=== PATIENT | female | born 1995 | race Caucasian/White ===

== ENCOUNTER 2022-06-01 08:15 | Outpatient (CLI) | payer BC, MEDICAID, SELFPAY ==
--- NOTE | 2022-06-01 08:15 | CRLHL7_ITS ---
For Patients: As a result of the Cures Act, medical imaging exams and procedure reports are released immediately into your electronic medical record. You may view this report before your referring provider. If you have questions, please contact your health care provider. INDICATION: First trimester scan, establish dates. COMPARISON: None. TECHNIQUE: Real-time morales-scale imaging of the pelvis was performed. FINDINGS: Sonographic imaging demonstrates a single living intrauterine gestation. The embryo demonstrates a regular cardiac rate measuring 173 beats per minute. The embryo`s crown-rump length measurement of 3.9 cm corresponds to a gestational age of 10 weeks 6 days with a sonographic due date of 12/22/2022. There is a normal-appearing yolk sac. There are no gross abnormalities noted within the embryo at this early state of development. The gestational sac has a normal appearance. There is no evidence of a perigestational hemorrhage. The amount of fluid within the sac appears appropriate for gestational age. The cervix is closed. The myometrium appears normal. The ovaries are of normal size. There are no suspicious fluid collections noted in the cul-de-sac. IMPRESSION: Normal first trimester OB ultrasound exam. Gestational age calculated at 10 weeks 6 days with a sonographic due date of 12/22/2022. Dictated by Lloyd Justice MD @ 06/01/2022 9:29:23 AM (Electronically Signed)
== END 2022-06-01 08:16 | disposition home or self-care (01) ==
LOC: US 08:20
PROVIDERS: PCP Student in an Organized Health Care Education/Training Program; Visit Provider Advanced Practice Midwife
DX: Z36.89 Encounter for other specified antenatal screening (principal); Z3A.10 10 weeks gestation of pregnancy; O99.341 Other mental disorders complicating pregnancy, first trimester; F31.9 Bipolar disorder, unspecified; Z91.410 Personal history of adult physical and sexual abuse
CPT/HCPCS: 76817; 86592; 86703; 86762; 86787; 86803; 86850; 86900; 86901; 87340; 88174

== ENCOUNTER 2022-06-29 14:48 | Outpatient (CLI) | payer BC, SELFPAY ==
[2022-06-29 15:00] VITALS: BP 126/89; RESP 20; TEMP 36.4; O2SAT 99; BMI 24.9
[2022-06-29] MEDS: 0.9 % SODIUM CHLORIDE 1000 ml 1,000 ML IV (15:23)
[2022-06-29] MEDS: ONDANSETRON 2 MG/ML inj 4 MG IVP (15:24)
[2022-06-29] MEDS: KETOROLAC 30 MG/ML inj IVP (15:25)
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
[2022-06-29 15:30] VITALS: BP 128/86; PULSE 68; O2SAT 99
[2022-06-29 15:36] LABS: Chloride* 104 mmol/L (96-114); Sodium* 136 mmol/L (135-149)
[2022-06-29 15:37] LABS: Potassium* 3.7 mmol/L (3.6-5.1)
[2022-06-29 15:39] LABS: Creatinine* 0.7 mg/dL (0.5-1.5); Est. Creatinine Clearance* 106.09; Estimated Glomerular Filt Rate 123 ml/min
[2022-06-29 15:40] LABS: Blood Urea Nitrogen* 14 mg/dL (5-24); Calcium* 9.1 mg/dL (8.4-10.6); Carbon Dioxide* 24 mmol/L (20-32); Glucose* 92 mg/dL (60-115)
[2022-06-29 15:43] LABS: INR 0.99 (0.91-1.10); Prothrombin Time 13.5 Seconds
[2022-06-29 15:44] LABS: Partial Thromboplastin Time* 33 Seconds (23-33)
[2022-06-29 15:47] LABS: Basophils Percent Auto 0.3 % (0.0-3.0); Eosinophils Percent Auto 2.4 % (0.0-7.0); Hemoglobin* 13.2 gm/dL (12.0-16.0); Immature Granulocytes Abs Auto 0.02 K/uL (0.00-0.30); Lymphocytes Percent Auto 21.9 % (20-44); Mean Corpuscular HGB Conc 35 gm/dL (32-36); Mean Corpuscular Hemoglobin 31 pg (26-34); Mean Corpuscular Volume 90 fL (80-100); Monocytes Percent Auto 6.6 % (0.0-11.0); Neutrophils Percent Auto 68.6 % (42.0-72.0); Platelet Count* 257 K/uL (140-440); RDW Coefficient of Variation % 11.6 % (11.5-15.5); Red Blood Count 4.24 m/uL (4.00-5.20); White Blood Count* 12.75 K/uL (4.50-11.00)
[2022-06-29 15:49] LABS: Slide Review Reflex No
[2022-06-29 16:30] VITALS: BP 130/90; PULSE 72; RESP 18
[2022-06-29 17:00] VITALS: BP 121/78; PULSE 68; RESP 18
[2022-06-29] MEDS: miSOPROStoL 800 MCG/4 TABLET PR (17:00)
--- NOTE | 2022-06-29 17:06 | CRLHL7_ITS ---
For Patients: As a result of the Century Cures Act, medical imaging exams and procedure reports are released immediately into your electronic medical record. You may view this report before your referring provider. If you have questions, please contact your health care provider. INDICATION: Miscarriage. Question retained products of conception. TECHNIQUE: Ultrasound pelvis transabdominal only for assessment and to visualize the endometrium. Real-time sonographic images with color doppler imaging of the endometrium and ovaries were obtained. COMPARISON: Ob ultrasound study dated 06/01/2022 FINDINGS: Uterus: Size measurements not obtained. Endometrium: Heterogeneous, thickened appearance to the endometrium with increased vascularity on color Doppler evaluation. Right ovary: Limited evaluation. Left ovary: Not evaluated. Cul-de-sac: No significant free fluid. IMPRESSION: 1. Thickened, vascular appearance to the endometrium, consistent with retained products of conception. Preliminary results were given to the ordering ER provider by gear repair supervisor earlier on 06/29/2022 per tech notes. Dictated by Kai Evans MD @ 06/29/2022 6:53:12 PM Dictated by: Kai Evans MD @ 06/29/2022 18:53:20 (Electronically Signed)
--- NOTE | 2022-06-29 17:45 | ED.NURSE ---
Pt to and back from
--- NOTE | 2022-06-29 17:56 | ED.NURSE ---
Pt to OB for observation.
[2022-06-29 18:15] VITALS: BP 128/72; PULSE 82; RESP 18; TEMP 36.4; O2SAT 99
[2022-06-29 18:50] LABS: Basophils Percent Auto 0.2 % (0.0-3.0); Eosinophils Percent Auto 1.8 % (0.0-7.0); Hematocrit 34.4 % (33.0-51.0); Hemoglobin* 11.7 gm/dL (12.0-16.0); Immature Granulocytes Abs Auto 0.02 K/uL (0.00-0.30); Lymphocytes Percent Auto 15.7 % (20-44); Mean Corpuscular HGB Conc 34 gm/dL (32-36); Mean Corpuscular Hemoglobin 31 pg (26-34); Mean Corpuscular Volume 91 fL (80-100); Monocytes Percent Auto 5.9 % (0.0-11.0); Neutrophils Percent Auto 76.3 % (42.0-72.0); Platelet Count* 206 K/uL (140-440); RDW Coefficient of Variation % 11.6 % (11.5-15.5); Red Blood Count 3.78 m/uL (4.00-5.20); White Blood Count* 14.79 K/uL (4.50-11.00)
[2022-06-29 18:56] LABS: Slide Review Reflex No
[2022-06-29] MEDS: METHYLERGONOVINE MALEATE 0.2 MG/ML INJ IM (18:57)
[2022-06-29 19:22] LABS: INR 1.04 (0.91-1.10)
[2022-06-29 19:23] LABS: Partial Thromboplastin Time* 32 Seconds (23-33)
[2022-06-29 19:24] LABS: Fibrinogen* 281 mg/dL (200-450)
[2022-06-29 19:36] LABS: Glucose* 77 mg/dL (60-115)
[2022-06-29 19:55] LABS: Free T4 Free Thyroxine* 0.89 ng/dL (0.70-1.85)
[2022-06-29 20:29] LABS: Amphetamine Screen Urine Negative (Negative); Barbiturate Screen Urine Negative (Negative); Benzodiazepines Screen Urine Negative (Negative); Cannabinoid Screen Urine Negative (Negative); Cocaine Screen Urine Negative (Negative); Methadone Screen Urine Negative (Negative); Methamphetamines Screen Urine Negative (Negative); Opiate Screen Urine Negative (Negative); Oxycodone Screen Urine Negative (Negative); Phencyclidine Screen Urine Negative (Negative); Tricyclic Antidepressant Urine Negative (Negative)
== END 2022-06-29 20:00 | disposition home or self-care (01) ==
LOC: ED 17:48 → OB 18:46 → OB OUT 18:59 → OB 19:03
PROVIDERS: Family Medicine; Emergency Provider Internal Medicine; PCP Student in an Organized Health Care Education/Training Program; Visit Provider Obstetrics & Gynecology
DX: O03.9 Complete or unspecified spontaneous abortion without complication (principal)
CPT/HCPCS: 36415; 76857; 80048; 80306; 81241; 82947; 84439; 84443; 85025; 85384; 85460; 85610; 85613; 85730; 86146; 86147; 86317; 86592; 86644; 86645; 86747; 86778; 86850; 86900; 86901; 99213; 99284; A9270; J1885; J2210; J2405; J7030

== ENCOUNTER 2022-11-09 11:57 | Outpatient (CLI) | payer BC, SELFPAY ==
[2022-11-09 16:38] LABS: Chlamydia DNA Amplified* NOT DETECTED (No Detected); GC DNA Amplified* NOT DETECTED (No Detected)
== END 2022-11-09 11:58 | disposition home or self-care (01) ==
LOC: NFLDREF 11:58
PROVIDERS: PCP Student in an Organized Health Care Education/Training Program; Visit Provider Physician Assistant
DX: N89.8 Other specified noninflammatory disorders of vagina (principal)
CPT/HCPCS: 87491; 87591

== ENCOUNTER 2023-06-28 09:02 | Outpatient (CLI) | payer BC, SELFPAY | END 2023-06-28 09:03 | disposition home or self-care (01) | LOC: NFLDREF 06-29 14:57 | PROVIDERS: PCP Nurse Practitioner Family; Visit Provider Nurse Practitioner Family | DX: E03.9 Hypothyroidism, unspecified (principal) | CPT/HCPCS: 84439; 84443 ==

== ENCOUNTER 2023-07-26 10:55 | Outpatient (CLI) | payer BC, SELFPAY | END 2023-07-26 10:56 | disposition home or self-care (01) | LOC: NFLDREF 13:29 | PROVIDERS: PCP Nurse Practitioner Family; Referring Provider Nurse Practitioner Family; Visit Provider Nurse Practitioner Family | DX: E03.9 Hypothyroidism, unspecified (principal) | CPT/HCPCS: 84443 ==

== ENCOUNTER 2023-09-08 11:03 | Outpatient (CLI) | payer BC, SELFPAY | END 2023-09-08 11:04 | disposition home or self-care (01) | PROVIDERS: PCP Nurse Practitioner Family; Visit Provider Family Medicine | DX: Z00.00 Encounter for general adult medical examination without abnormal findings (principal); E03.9 Hypothyroidism, unspecified; R63.5 Abnormal weight gain; R53.83 Other fatigue; Z79.899 Other long term (current) drug therapy; Z13.6 Encounter for screening for cardiovascular disorders | CPT/HCPCS: 80053; 80061; 84439; 84443 ==

== ENCOUNTER 2023-12-09 09:17 | Outpatient (CLI) | payer BC, SELFPAY | END 2023-12-09 09:18 | disposition home or self-care (01) | LOC: NFLDREF 09:18 | PROVIDERS: PCP Family Medicine; Visit Provider Family Medicine | DX: E03.9 Hypothyroidism, unspecified (principal) | CPT/HCPCS: 84439; 84443 ==

== ENCOUNTER 2024-01-01 18:42 | Emergency (ER) | payer BC, SELFPAY ==
[2024-01-01] VITALS (24 sets, daily range): BP systolic 101–137; BP diastolic 63–115; PULSE 83–110; RESP 18; TEMP 37.3; O2SAT 95–98; BMI 27.8
--- NOTE | 2024-01-01 19:05 | ED.NURSE ---
At 1900 hours RN contacted Poison Control for overdose patient C.M. Advised patient took 13 1 mg Ativan tablets today @ 1810 pm. Per Poison Control, patient should be fine. Will be drowsy. Advised to check a Tylenol level. Per Poison Control, pt should be good to go.
--- NOTE | 2024-01-01 19:26 | ED.OVERDOSE ---
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 (PCR) Negative PCR FLU B (Negative) RSV (PCR) Negative PCR RSV (Negative) <Jasmin Bhatia MD - Last Filed: 01/19/24 22:38> Discharge Plan Discharge Clinical Impression: Drug overdose <Joe Baires DO - Last Filed: 01/01/24 21:02> Patient Disposition: Xfer Psychiatric Hosp <Joe Baires DO - Last Filed: 01/01/24 21:02> Condition: Stable <Joe Baires DO - Last Filed: 01/01/24 21:02> Instructions: Adult Overdose (ED) <Joe Baires DO - Last Filed: 01/01/24 21:02> Additional Instructions: Make sure you follow-up with the outpatient appointment scheduled for you by DEC. Return to emergency department for new or worsening symptoms <Joe Baires DO - Last Filed: 01/01/24 21:02> Prescriptions: No Action lisdexamfetamine [Vyvanse] 30 mg capsule 30 mg PO QAM Vraylar 4.5 mg capsule 4.5 mg PO QDAY nicotine 21 mg/24 hr patch 24 hour 1 patch transdermal Q24H Qty: 28 0RF Rx Instructions: Use 1st month nicotine 14 mg/24 hr patch 24 hour 1 patch transdermal QDAY Qty: 28 0RF Rx Instructions: Use 2nd month nicotine 7 mg/24 hr patch 24 hour 1 patch transdermal QDAY Qty: 28 0RF Rx Instructions: Use 3rd month levothyroxine 50 mcg tablet 50 mcg PO QDAY Qty: 90 0RF <Joe Baires DO - Last Filed: 01/01/24 21:02> Stand Alone Forms: [facility] Info Instructions <Joe Baires DO - Last Filed: 01/01/24 21:02>
--- OUTSIDE RECORDS SUMMARY | 2024-01-01 19:29 | XMS_ITS ---
Author Name Unknown Organization [facility] Address [address] [place] [address] Care Team Providers Care Junior Automation Engineer Name Role Phone Unavailable Unavailable Unavailable Surgery Details Not on file Complications Check Surgery Details section. Procedure Estimated Blood Loss Check Surgery Details section. Procedure Findings Check Surgery Details section. Procedure Specimens Taken Check Surgery Details section.
--- OUTSIDE RECORDS SUMMARY | 2024-01-01 19:29 | XMS_ITS ---
Author Name Unknown Organization [facility] Address [address] [place] [id number] Care Team Providers Care Rice Field Worker Name Role Phone No Ref-Primary, Physician Primary Care Provider Transitional Care Management Status:Closed (Closed) Start date:01/11/2023 Enrollment date:01/12/2023 End date:01/26/2023 Close reason:Goals met Overview SW-request review. Pt presented to ED for psychiatric evaluation. Pt with suicidal ideation, moderate episode of recurrent major depressive disorder (H), generalized anxiety disorder, and schizoaffective disorder, depressive type (H). AR. 01/11/23. 8:50 am. Continued Care and Services Coordination
--- OUTSIDE RECORDS SUMMARY | 2024-01-01 19:29 | XMS_ITS | Encounter Summary ---
Author Name Unknown Organization [facility] Address [address] [place] [id number] Care Team Providers Care Order Picker Name Role Phone No Ref-Primary, Physician Primary Care Provider Reason for Visit * Reason Comments Psychiatric Evaluation Encounter Details Date Type Department Care Team (Late st Contact Info) Description 01/09/2023 9:53 PM HUMAN RESOURCES ANALYST - 01/10/2023 2:15 PM HUMAN RESOURCES ANALYST Emergency [facility] Emergency Dept [address] [place] [id number] Jovan Martinez, DO [facility] [address] [place], [place] [phone] Suicidal ideation; Moderate episode of recurrent major depressive disorder (H); Generalized anxiety disorder; Schizoaffective disorder, depressive type (H) Discharge Disposition: Home or Self Care Social History Tobacco Use Types Packs/Day Years Used Date Smoking Tobacco: Never Assessed Sex and Gender Information Value Date Recorded Sex Assigned at Not on file Gender Identity Not on file Sexual Orientation Not on file COVID-19 Exposure Response Date Recorded In the last 10 days, have yo u been in contact with someone who was confirmed or suspected to have Coronavirus/COVID-19? No / Unsure 01/09/2023 7:43 PM HUMAN RESOURCES ANALYST documented as of this encounter Last Filed Vital Signs Vital Sign Reading Time Taken Comments Blood Pressure 102/59 01/10/2023 9:07 AM HUMAN RESOURCES ANALYST Pulse 66 01/10/2023 9:07 AM HUMAN RESOURCES ANALYST Temperature 36.7 ??C (98.1 ??F) 01/10/2023 9:07 AM CS T Respiratory Rate 18 01/10/2023 9:07 AM HUMAN RESOURCES ANALYST Oxygen Saturation 98% 01/10/2023 9:07 AM HUMAN RESOURCES ANALYST Inhaled Oxygen Concentration - - Weight 70.9 kg (156 lb 3.2 oz) 01/09/2023 10:10 PM HUMAN RESOURCES ANALYST Height 160 cm (5' 3) 01/09/2023 10:10 PM HUMAN RESOURCES ANALYST Body Mass Index 27.67 01/09/2023 10:10 PM HUMAN RESOURCES ANALYST documented in this encounter Discharge Instructions * Discharge Instructions* Aurea Dia, [facility] - 01/10/2023 12:58 PM HUMAN RESOURCES ANALYST Aftercare Plan Please sign the Release of Information (SHERITA) prior to leaving the hospital. By signing you are allowing us to share visit information with current providers and to make recommended referrals on your behalf. Follow up with established providers and supports as scheduled. Continue taking medications as prescribed. Abstain from drugs and alcohol. Utilize your [facility] crisis team as needed. They are available 13/06. Contact information is listed below. If I am feeling unsafe or I am in a crisis, I will: Contact my established care providers Call the National Suicide Prevention Lifeline: [phone] Go to the nearest emergency room Call 911 Warning signs that I or other people might notice when a crisis is developing for me: changes to sleep, appetite or mood, increased anger, agitation or irritability, feeling depressed or hopeless, spending more time alone or talking less, increased crying, decreased productivity, seeing or hearing things that aren't there, thoughts of not wanting to live anymore or of actually killing myself, thoughts of hurting others Things I am able to do on my own to cope or help me feel better: watching a favorite tv show or movie, listening to music I enjoy, going outside and breathing fresh air, going for a walk or exercising, taking a shower or bath, a cold or hot beverage, a healthy snack, drawing/coloring/painting, journaling, singing or dancing, deep breathing I can try practicing square breathing when I begin to feel anxious - inhale through the nose for the count of 4 and the first line on the square. Exhale through the mouth for the count of 4 for the second line of the square. Repeat to complete the square. Repeat the square as many times as needed. I can also use my five senses to practice mindfulness and grounding. What are five things I can see, four things I can hear, three things I can feel, two things I can smell, and one thing I can taste. Things that I am able to do with others to cope or help me feel better: sometimes just talking or spending time with someone else, sharing a meal or having coffee, watching a movie or playing a game,going for a walk or exercising I can also use community resources including mental health hotlines, county crisis teams, or apps. Things I can use or do for distraction: movies/tv, music, reading, games, drawing/coloring/paintingor other art, essential oils, exercise, cleaning/organizing, puzzles, crossword puzzles, word search, Sudoku I can also download a meditation or relaxation mohinder, like Calm, Headspace, or Insight Timer (all three offer a free version) Changes I can make to support my mental health and wellness: Attend scheduled mental health therapy and psychiatric appointments. Take my medications as prescribed. Maintain a daily schedule/routine. Abstain from all mood altering substances, including drugs, alcohol, or medications not currently prescribed to me. Implement a self-care routine. People in my life that I can ask for help: my parents, boyfriend other close friends, trusted members of my community or place of adventism, mental health crisis lines, or 911 Your [facility] has a mental health crisis team you can call 13/06: Crisis Response for [facility], [facility] Mental Health Crisis Line: Other things that are important when I???m in crisis: to remember that the feelings I am having right now are temporary, and it won't feel like this forever, and that it is okay and important to ask for help Crisis Lines Crisis Text Line Text 035261 You will be connected with a trained live crisis counselor to provide support. National Hope Line 1.800.SUICIDE [6536282] Community Resources Fast Tracker Linking people to mental health and substance use disorder resources fasttrackermn.org [place] [facility] Warm Line Peer to peer support Tuesday thru Tuesday, 12 pm to 10 pm [phone] or [place] Support [place] [address]17 National [place] on Mental Illness (BANDAR) 109.020.0021 or 1.888.BANDAR.HELPS Mental Health Apps My3 https://Kirusapp.org/ VirtualHopeBox https://Morizon/apps/xzfzeks-xrbo-nwh/ Additional Information Today you were seen by a licensed mental health professional through Triage and Transition services, [facility] (P) for a crisis assessment in the Emergency Department at [facility]. It is recommended that you follow up with your established providers (psychiatrist, mental health therapist, and/or primary care doctor - as relevant) as soon as possible. Coordinators from [facility] will be calling you in the next 24-48 hours to ensure that you have the resources you need. You can also contact [facility] coordinators directly at [phone]. You may have been scheduled for or offered an appointment with a mental health provider. [facility] maintains an extensive network of licensed [facility] health providers to connect patients with the services they need. We do not charge providers a fee to participate in our referral network. We match patients with providers based on a patient's specific needs, insurance coverage, and location. Our first effort will be to refer you to a provider within your care system, and will utilize providers outside your care system as needed. N RESOURCES ANALYST documented in this encounter Medications at Time of Discharge Medication Sig Dispensed Refills Start Date End Date drospirenone-ethinyl estradiol (МАРИЯ) 3-0.03 MG tablet Take 1 tablet by mouth daily at 2 pm 0 12/28/2022 OLANZapine (ZYPREXA) 5 MG tablet Take 5 mg by mouth daily as needed 0 documented as of this encounter Progress Notes * Margarita Oropeza LADC - 01/10/2023 6:04 AM CST HP Collateral Note: The following information was received from Anita Baltanelson whose relationship to the patient is mothers. Information was obtained via phone. Their phone number is ([phone]) and they last had contactwith patient on 01/09/23 (they went to [facility]). What happened today: 'I talked to her boyfriend and was told she came into the hospital. It's similar to the last time she checked herself in. The last time she checked herself in was in [place].' She states that she wanted pt to get a county worker to help oversee medications, however, she still hasn't heard anything about that. What is different about patient's functioning: 'she withdraws, she sleeps more, she draws the shades. She texted me last week and said pray for me, she seemed in a more depressed state and in a psychosis state' Concern about alcohol/drug use: Yes, she knows that she drinks a lot, the last 2 days she drank a lot - she's been out the last 2 nights. What do you think the patient needs: getting her on the right medication. There were some that seemed to work well, but not good for custodial use Has patient made comments about wanting to kill themselves/others: She states that pt has not made comments about harming others; she states that deep down pt doesn't want to be going through this. Mom has not heard any specific suicidal comments If d/c is recommended, can they take part in safety/aftercare planning: Yes Other information: Anita reports that she is wondering if pt could get a referral for a county worker Margarita Oropeza MA, [facility], [facility] 01/10/23 6:00AM-6:13AM Electronically signed by Margarita Oropeza [facility] at 01/10/2023 6:22 AM HUMAN RESOURCES ANALYST documented in this encounter Consult Notes * uArea Dia, [facility] - 01/10/2023 9:21 AM CST Diagnostic Evaluation Consultation Crisis Assessment Patient was assessed: In Person Patient location: [facility] Was a release of information signed: Yes. Providers included on the release: Dr Kianna Jacobs, MATTLAAlexandra [facility], with [facility], and Yessy Lin, [facility], [facility] Referral Data and Chief Complaint Marva Sosa is a 27 year old, who uses she/her pronouns, and presents to the ED with family/friends. Patient is referred to the ED by self. Patient is presenting to the ED for the following concerns: worsening symptoms of depression with passive SI. Informed Consent and Assessment Methods Patient is her own guardian. [employer] met with patient and explained the crisis assessment process, including applicable information disclosures and limits to confidentiality, assessed understanding ofthe process, and obtained consent to proceed with the assessment. Patient was observed to be able to participate in the assessment as evidenced by being alert and oriented and agreeing to this assessment. Assessment methods included conducting a formal interview with patient, review of medical records, collaboration with medical staff, and obtaining relevant collateral information from family andcommunity providers when available.. Over the course of this crisis assessment provided reassurance, offered validation, engaged patientin problem solving and disposition planning and assisted in processing patient's thoughts and feeling relating to feeling depressed and overwhelmed again.. Patient's response to interventions was good. She was engaged and responsive. Summary of Patient Situation Pt reports that about 2 mos ago she stopped taking the antipsychotic she was prescribed when she was in the hospital several months ago, because she was doing well and no longer felt it was needed. She tapered off with her psychiatrist's help. She continued to do well, and about 2 weeks ago, stopped taking her anti depressant, feeling she no longer needed this. However she stopped this when she ran out, and did not taper off. She report however, that she thinks it's having started a new job, that has her feeling overwhelmed and depressed recently, though acknowledges that perhaps stopping themedication has contributed to this as well. 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 Pt indicates that she has a good support system with her parents, boyfriend and friends and sees them regularly. However she has withdrawn a bit recently and reports other symptoms of feeling unmotivated, tired, sad, and overwhelmed. She has been sleeping and eating with no issues, denies drug or alcohol abuse, reported social drinking only. Though she denies any intent for suicide, she does report having intense feelings of just wanting to be to escape everything, and endorses recent SIB by cutting. She states that this is why she came here from [place] to the [facility] unit, to be in a safe place and able to talk with people whocan provide professional guidance. 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 She denies any legal issues, reports good support from parents, boyfriend and friends. Significant Clinical History Pt reports one admission to [facility] in Sep for increased depression with SI and psychosis andwas diagnosed with schizoaffective disorder at that time. She followed discharge instruction for psychiatric and therapy provider appointments and had been compliant with medications until stopping her anti depressant just a couple of weeks ago. Pt endorsed history of a suicide attempt in middle school by overdosing on ibuprofin. She indicatesthat she just felt very sick afterwards, but was glad that she didn't from it. She did not report this overdose to anyone at the time. 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 Currently uses alcoholonly and reports social drinking only, not typically to excess. Currently pt sees her therapist, Yessy Lin with [facility] in [place], twice per week and reports that this is beneficial. She has also been seeing her psychiatrist, Dr Jacobs as scheduled every couple of months. Collateral Information The following information was obtained by Margarita Oropeza MA, [facility], LADC On 01/10/23 at 6:00AM: The following information was received from Anita Ian whose relationship to the patient is mothers. Information was obtained via phone. Their phone number is ([phone]) and they last had contactwith patient on 01/09/23 (they went to [facility]). ?? What happened today: 'I talked to her boyfriend and was told she came into the hospital. It's similar to the last time she checked herself in. The last time she checked herself in was in [place].' She states that she wanted pt to get a county worker to help oversee medications, however, she still hasn't heard anything about that. ?? What is different about patient's functioning: 'she withdraws, she sleeps more, she draws the shades. She texted me last week and said pray for me, she seemed in a more depressed state and in a psychosis state' ?? Concern about alcohol/drug use: Yes, she knows that she drinks a lot, the last 2 days she drank a lot - she's been out the last 2 nights. ?? What do you think the patient needs: getting her on the right medication. 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 Has patient made comments about wanting to kill themselves/others: She states that pt has not made comments about harming others; she states that deep down pt doesn't want to be going through this. Mom has not heard any specific suicidal comments ?? If d/c is recommended, can they take part in safety/aftercare planning: Yes ?? Other information: Anita reports that she is wondering if pt could get a referral for a county worker ?? Risk Assessment [place] Suicide Severity Rating Scale Full Clinical Version:01/10/23 Suicidal Ideation 1. Wish to be (Lifetime): Yes 1. Wish to be (Past 1 Month): Yes 2. Non-Specific Active Suicidal Thoughts (Lifetime): Yes 2. Non-Specific Active Suicidal Thoughts (Past 1 Month): No 3. Active Suicidal Ideation with any Methods (Not Plan) Without Intent to Act (Lifetime): Yes 3. Active Suicidal Ideation with any Methods (Not Plan) Without Intent to Act (Past 1 Month): No 4. Active Suicidal Ideation with Some Intent to Act, Without Specific Plan (Lifetime): Yes 4. Active Suicidal Ideation with Some Intent to Act, Without Specific Plan (Past 1 Month): No 5. Active Suicidal Ideation with Specific Plan and Intent (Lifetime): Yes Active Suicidal Ideation with Specific Plan and Intent Description (Lifetime): OD on ibuprofin 5. Active Suicidal Ideation with Specific Plan and Intent (Past 1 Month): No Intensity of Ideation Most Severe Ideation Rating (Lifetime): 4 Description of Most Severe Ideation (Lifetime): wanted to escape Most Severe Ideation Rating (Past 1 Month): 3 Description of Most Severe Ideation (Past 1 Month): Seeing as an escape, but really just wanting to feel better Frequency (Lifetime): Daily or almost daily Frequency (Past 1 Month): Daily or almost daily Duration (Lifetime): 1-4 hours/a lot of time Duration (Past 1 Month): 1-4 hours/a lot of time Controllability (Lifetime): Can control thoughts with a lot of difficulty Controllability (Past 1 Month): Can control thoughts with some difficulty Deterrents (Lifetime): Deterrents definitely did not stop you Deterrents (Past 1 Month): Deterrents definitely stopped you from attempting suicide Reasons for Ideation (Lifetime): Equally to get attention, revenge, or a reaction from others and to end/stop the pain Reasons for Ideation (Past 1 Month): Mostly to end or stop the pain (You couldn't go on living withthe pain or how you were feeling) Suicidal Behavior Actual Attempt (Lifetime): Yes Total Number of Actual Attempts (Lifetime): 1 Actual Attempt Description (Lifetime): OD on ibuprofin more than 10 years ago Actual Attempt (Past 3 Months): No Has subject engaged in non-suicidal self-injurious behavior? (Lifetime): Yes Has subject engaged in non-suicidal self-injurious behavior? (Past 3 Months): Yes Interrupted Attempts (Lifetime): No Aborted or Self-Interrupted Attempt (Lifetime): No Preparatory Acts or Behavior (Lifetime): No C-SSRS Risk (Lifetime/Recent) Calculated C-SSRS Risk Score (Lifetime/Recent): Moderate Risk Actual/Potential Lethality (Most Lethal Attempt) Most Lethal Attempt Date: (over 10 years ago in middle school) Actual Lethality/Medical Damage Code (Most Lethal Attempt): Minor physical damage Potential Lethality Code (Most Lethal Attempt): Behavior likely to result in injury but not likely to cause Validity of evaluation is not impacted by presenting factors during interview. Comments regarding subjective versus objective responses to [place] tool: Pt's responses are congruent with her affect. Environmental or Psychosocial Events: excessive debt, poor finances and recent life events: startednew job Chronic Risk Factors: history of suicide attempts (cutting), history of psychiatric hospitalizationand history of Non-Suicidal Self Injury (NSSI) Warning Signs: hopelessness and withdrawing from friends, family, and society Protective Factors: strong marsh to family unit, community support, or employment, lives in a responsibly safe and stable environment, good treatment engagement, sense of importance of health and wellness, able to access care without barriers, supportive ongoing medical and mental health care relatio nships, help seeking, sense of belonging, sense of self-efficacy and/or positive self-esteem, optimistic outlook - identification of future goals, constructive use of leisure time, enjoyable activities, resilience and reality testing ability Interpretation of Risk Scoring, Risk Mitigation Interventions and Safety Plan: will remain on observation at [facility], restart medication Does the patient have thoughts of harming others? No Is the patient engaging in sexually inappropriate behavior? no Current Substance Abuse Is there recent substance abuse? Substance type(s): alocohol Frequency: once/week Quantity: few drinks with friends Method: drinks Duration: off and on past many years Last use: last week Was a urine drug screen or blood alcohol level obtained: No Mental Status Exam Affect: Appropriate Appearance: Appropriate Attention Span/Concentration: Attentive Eye Contact: Engaged Fund of Knowledge: Appropriate Language /Speech Content: Fluent Language /Speech Volume: Soft Language /Speech Rate/Productions: Normal Recent Memory: Intact Remote Memory: Intact Mood: Depressed Orientation to Person: Yes Orientation to Place: Yes Orientation to Time of Day: Yes Orientation to Date: Yes Situation (Do they understand why they are here?): Yes Psychomotor Behavior: Normal Thought Content: Clear Thought Form: Goal Directed and Intact History of commitment: No Medication Psychotropic medications: No current medications but a history of antipsychotic and anti depressant. Medication changes made in the last two weeks: Yes - stopped taking the antidepressant Current Care Team Primary Care Provider: No Psychiatrist: Yes. Name: Dr Kianna Jacobs. Location: [facility] [phone]. Date of last visit: month ago. Frequency: every couple of months. Perceived helpfulness: good. Therapist: Yes. Name: Yessy Lin [facility]. Location: [facility]. Date of last visit: last week. Frequency: e/o week. Perceived helpfulness: good. Vp Securities: No CTSS or ARMHS: No ACT Team: No Other: No Diagnosis 295.70 (F25.1) Schizoaffective Disorder Depressive Type 300.02 (F41.1) Generalized Anxiety Disorder - by history Clinical Summary and Substantiation of Recommendations Pt reports that she is feeling better after having been in a safe place and getting decent sleep. She no longer is having thoughts of suicide and wants to see her boyfriend. She plans to either stay with him or have him stay with her for the next few days, and then is scheduled to see her therapistin 3 days, psychiatrist next week. Pt did not wish to be restart any medication at this time, expressing understanding that having stopped her antidepressant suddenly may be contributing to her current symptoms of depression. She states also, that going out with friends drinking 2 nights in a row, may also have led to some symptoms of depression. At this time, pt appears able to make appropriate and informed decisions, she declines offer of medication, denies any SI and plans to see her therapist in 3 days as scheduled. Pt does not appear to be a danger to herself at this time and is safe for discharge. Disposition Recommended disposition: Individual Therapy and Medication Management Reviewed case and recommendations with attending provider. Attending Name: Rinku Mascorro CNP Attending concurs with disposition: Yes Patient concurs with disposition: Yes Guardian concurs with disposition: NA Final disposition: Individual therapy and Medication management. Outpatient Details (if applicable): Aftercare plan and appointments placed in the AVS and provided to patient: Yes. Given to patient byRN Was lethal means counseling provided as a part of aftercare planning? Yes - describe . Pt reports having no access to firearms, no medications in her home that could be ingested for self harm. Assessment Details Patient interview started at: 9:20am and completed at: 10am. Total duration spent on the patient case in minutes: 2.0 hrs CPT code(s) utilized: 73255 - Psychotherapy for Crisis - 60 (30-74*) min Edil Jcakson, BUNGHOLE BORER, [employer] WHEEL ARM BURNISHER, BUNGHOLE BORER, Psychotherapist [facility] - Triage & Transition Services Callback: [phone] Aftercare Plan Please sign the Release of Information (SHERITA) prior to leaving the hospital. By signing you are allowing us to share visit information with current providers and to make recommended referrals on your behalf. Follow up with established providers and supports as scheduled. Continue taking medications as prescribed. Abstain from drugs and alcohol. Utilize your [facility] crisis team as needed. They are available 13/06. Contact information is listed below. If I am feeling unsafe or I am in a crisis, I will: Contact my established care providers Call the National Suicide Prevention Lifeline: 952.283.1120 Go to the nearest emergency room Call 052 Warning signs that I or other people might notice when a crisis is developing for me: changes to sleep, appetite or mood, increased anger, agitation or irritability, feeling depressed or hopeless, spending more time alone or talking less, increased crying, decreased productivity, seeing or hearing things that aren't there, thoughts of not wanting to live anymore or of actually killing myself, thoughts of hurting others Things I am able to do on my own to cope or help me feel better: watching a favorite tv show or movie, listening to music I enjoy, going outside and breathing fresh air, going for a walk or exercising, taking a shower or bath, a cold or hot beverage, a healthy snack, drawing/coloring/painting, journaling, singing or dancing, deep breathing I can try practicing square breathing when I begin to feel anxious - inhale through the nose for the count of 4 and the first line on the square. Exhale through the mouth for the count of 4 for the second line of the square. Repeat to complete the square. Repeat the square as many times as needed. I can also use my five senses to practice mindfulness and grounding. What are five things I can see, four things I can hear, three things I can feel, two things I can smell, and one thing I can taste. Things that I am able to do with others to cope or help me feel better: sometimes just talking or spending time with someone else, sharing a meal or having coffee, watching a movie or playing a game,going for a walk or exercising I can also use community resources including mental health hotlines, [facility] crisis teams, or apps. Things I can use or do for distraction: movies/tv, music, reading, games, drawing/coloring/paintingor other art, essential oils, exercise, cleaning/organizing, puzzles, crossword puzzles, word search, Sudoku I can also download a meditation or relaxation mohinder, like Calm, Headspace, or Insight Timer (all three offer a free version) Changes I can make to support my mental health and wellness: Attend scheduled mental health therapy and psychiatric appointments. Take my medications as prescribed. Maintain a daily schedule/routine. Abstain from all mood altering substances, including drugs, alcohol, or medications not currently prescribed to me. Implement a self-care routine. People in my life that I can ask for help: my parents, boyfriend other close friends, trusted members of my community or place of adventism, mental health crisis lines, or 911 Your [facility] has a mental health crisis team you can call 13/06: Crisis Response for [facility], [facility] Mental Health Crisis Line: Other things that are important when I???m in crisis: to remember that the feelings I am having right now are temporary, and it won't feel like this forever, and that it is okay and important to ask for help Crisis Lines Crisis Text Line Text 286595 You will be connected with a trained live crisis counselor to provide support. National Hope Line 1.800.SUICIDE [4432481] Community Resources Fast Tracker Linking people to mental health and substance use disorder resources R2integrated.Briefcase [place] Mental [facility] Warm Line Peer to peer support Tuesday thru Tuesday, 12 pm to 10 pm 251.907.3620 or [place] [address]74 National [place] on Mental Illness (BANDAR) 447.606.0108 or 1.888.BANDAR.HELPS Mental Health Apps My3 https://ReplySend.org/ VirtualHopeBox https://Morizon/apps/wqjahrm-qqzn-kjz/ Additional Information Today you were seen by a licensed mental health professional through Triage and Transition services, [facility] ([facility]) for a crisis assessment in the Emergency Department at [facility]. It is recommended that you follow up with your established providers (psychiatrist, mental health therapist, and/or primary care doctor - as relevant) as soon as possible. Coordinators from [facility] will be calling you in the next 24-48 hours to ensure that you have the resources you need. You can also contact [facility] coordinators directly at [phone]. You may have been scheduled for or offered an appointment with a mental health provider. [facility] maintains an extensive network of licensed [facility] providers to connect patients with the services they need. We do not charge providers a fee to participate in our referral network. We match patients with providers based on a patient's specific needs, insurance coverage, and location. Our first effort will be to refer you to a provider within your care system, and will utilize providers outside your care system as needed. N RESOURCES ANALYST documented in this encounter ED Notes * Clara Mcdaniel RN - 01/10/2023 2:26 PM CST Discharge instructions reviewed with patient including follow-up care plan. Educated on medication regime and advised not to stop prescribed medication without consulting their physician. Reviewed safety plan and outpatient resources.Denies SI. All belongings which where brought into the hospital have been returned to patient. Escorted off the unit at 1415 accompanied staff. Discharged to home. N RESOURCES ANALYST * Clara Mcdaniel RN - 01/10/2023 12:42 PM CST Talks about feeling safer this morning. Lives in her own apartment with her cat. Recently started ajob at a [employer]. Feels she has not been with her friends lately and doing her hobbies. Admits to drinking obsessively the past few nights. She feels her boyfriend is supportive. N RESOURCES ANALYST * Jin Mascorro CNP - 01/10/2023 11:17 AM CST [facility] Unit - Psychiatry Combined Observation Note and Discharge Summary [facility] Emergency Department Observation Initiation Date: Jan 09, 2023 Marva Sosa Age: [age] year old Date of : 1995 History Chief Complaint Patient presents with ??? Psychiatric Evaluation HPI Marva Sosa is a 27 year old female with a past history notable for generalized anxiety disorder, major depressive disorder, possible schizoaffective disorder, and history of stimulant use disorder, in remission x 5 years. Patient was medically evaluated in the emergency department and deemed stable for transfer to [facility] for further psychiatric assessment. Here at [facility], patient notes worsening feelings of depression over the last several days. She was previously stable on a regimen of bupropion and olanzapine. She stopped the olanzapine a couple months ago due to weight gain. She stopped bupropion a couple weeks ago as she thought she was doing better and did not need medication. She mentions today that she would prefer to remain off medications.She recalls her past hospitalization at [place] a few months ago. Recalls at that time feeling as though she was hearing other people's thoughts. She recalls experiencing visual hallucinations. She denies using any amphetamines or other stimulants around that time, reporting she has not used any illicit stimulants for the past 5 years. Review of the [facility] database suggests she was last prescribed Vyvanse in July 2022. Patient has felt more withdrawn, does not hang out with friends as often as she used to. She does not engage in hobbies she used to enjoy, such as reading or writing. She spends her time at home either cooking, cleaning, or scrolling her phone. She does have a boyfriend who is supportive and spends time at his place, or at her parent's house. 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 She mentions that she was drinking alcohol to the point of intoxication for two nights in a row over the weekend. She is unsure whether this affected her mood. Discussed the option to restart an antidepressant but patient declines. She reportsmelissa has an appointment scheduled on January 21 with her outpt psychiatrist. She meets with her therapist on . She denies any active thoughts, plans, or intent to harm herself and prefers to discharge home today. Past med trials include: olanzapine, bupropion, Caplyta, Abilify, Vraylar Past Medical History No past medical history on file. No past surgical history on file. drospirenone-ethinyl estradiol (МАРИЯ) 3-0.03 MG tablet OLANZapine (ZYPREXA) 5 MG tablet Allergies Allergen Reactions ??? Sulfa Drugs Family History No family history on file. Social History Review of Systems A medically appropriate review of systems was performed with pertinent positives and negatives noted in the HPI, and all other systems negative. Physical Examination BP: 115/83 Pulse: 80 Temp: 97.7 ??F (36.5 ??C) Resp: 20 Height: 160 cm (5' 3) Weight: 68 kg (150 lb) SpO2: 99 % Physical Exam General: Appears stated age. Neuro: Alert and fully oriented. Extremities appear to demonstrate normal strength on visual inspection. Integumentary/Skin: no rash visualized, normal color Psychiatric Examination Appearance: awake, alert, adequately groomed, appeared as age stated and casually dressed Attitude: cooperative Eye Contact: fair Mood: okay Affect: mood congruent and intensity is blunted Speech: clear, coherent and normal prosody Psychomotor Behavior: no evidence of tardive dyskinesia, dystonia, or tics Thought Process: linear and goal oriented Associations: no loose associations Thought Content: no evidence of suicidal ideation or homicidal ideation and no evidence of psychotic thought Insight: fair Judgement: intact Oriented to: time, person, and place Attention Span and Concentration: fair Recent and Remote Memory: intact Language: able to name/identify objects without impairment Fund of Knowledge: intact with awareness of current and past events ED Course Labs Ordered and Resulted from Time of ED Arrival to Time of ED Departure COVID-19 VIRUS (CORONAVIRUS) BY PCR - Normal Result Value SARS CoV2 PCR Negative Assessments & Plan (with Medical Decision Making) Patient presenting with increased symptoms of depression and anxiety, leading to thoughts that it would be easier to be . Patient came to the [facility] for support, declines any medication interventions today and prefers to discharge home. Nursing notes reviewed noting no acute issues. I have reviewed the assessment completed by the [facility]. During the observation period, the patient did not require medications for agitation, and did not require restraints/seclusion for patient and/or provider safety. The patient was found to have a psychiatric condition that would benefit from an observation stay in the emergency department for further psychiatric stabilization and/or coordination of a safe disposition. The observation plan includes serial assessments of psychiatric condition, potential administration of medications if indicated, further disposition pending the patient's psychiatric course during the monitoring period. Preliminary diagnosis: ICD-10-CM 1. Suicidal ideation R45.851 2. Moderate episode of recurrent major depressive disorder (H) F33.1 3. Generalized anxiety disorder F41.1 4. Schizoaffective disorder, depressive type (H) F25.1 r/o - diagnosed during hospitalization this past fall Treatment Plan: - Patient declines any medication interventions at this time. - Recommend she consider resuming her prior medication regimen, including Wellbutrin XL 150 mg daily, in addition to olanzapine 5 mg at bedtime. She prefers to remain off these medications currently. - Continue individual outpatient therapy. Discussed the option of intensive outpatient treatment, which patient declines. Mentions a psychiatry appointment on January 21, which she was encouraged to attend. - Patient denies any suicidal thoughts, plans, or intent. She wishes to discharge and will be discharged home today. I, Rinku Mascorro CNP, have personally performed an examination of this patient. ??I have edited the note to reflect all relevant changes. ??I have discussed this patient with the care team on 01/10/23. ??I have reviewed all vitals and laboratory findings. After the period in observation care, the patient's circumstances and mental state were safe for outpatient management. After counseling on the diagnosis, work-up, and treatment plan, the patient wasdischarged. Close follow-up with a psychiatrist and/or therapist was recommended and community psychiatric resources were provided. Patient is to return to the ED if any urgent or potentially life-threatening concerns. At the time of discharge, the patient's acute suicide risk was determined to be low due to the following factors: Reduction in the intensity of mood/anxiety symptoms that preceded the admission, denial of suicidal thoughts, denies feeling helpless or helpless, not currently under the influence of alcohol or illicit substances, denies experiencing command hallucinations, no immediate access to firearms. The patient's acute risk could be higher if noncompliant with their treatment plan, medications, follow-up appointments or using illicit substances or alcohol. Protective factors include: social supports, stable housing, employment -- Jin Mascorro CNP [facility] Unit 01/09/2023 Jin Mascorro CNP 01/10/23 1132 Jin Mascorro CNP 01/10/23 1134 N RESOURCES ANALYST * Clara Mcdaniel RN - 01/10/2023 9:11 AM CST Patient resting in Sensory Room B and vitals taken. Offers no physical complains and contract for safety while in the hospital. N RESOURCES ANALYST * Etta Marion LGSW - 01/09/2023 11:44 PM CST [employer] attempted to meet with patient, after repeating her name multiple times she woke up. Asked patient to come complete assessment in consult room A and patient mumbled something, when asked to repeat patient asked to do assessment in the morning to continue sleeping. Collateral Information: Attempted to obtain collateral information from patient's Mother/Emergency Contact Anita Sosa ([phone]) but this phone call was not answered. [employer] left a voicemail without PHI requesting a return call. JOHN Calderon on 01/09/2023 at 11:48 PM N RESOURCES ANALYST Associated attestation - Arminda Milan LICSW - 01/19/2023 10:46 AM HUMAN RESOURCES ANALYST Service Performed and Documented by JOHN Note reviewed and clinical supervision by ANGELITO German LICSW January 19, 2023 * Latasha Fraser RN - 01/09/2023 10:17 PM CST 27 year old female with history of depression and schizoaffective disorder received from ED due to increased depression. Reports she has been feeling very low to the point that it is painful. States she does not want to kill herself, but does not want to be alive either. Denies history of suicide attempt in past. States she recently stopped her antidepressant, Wellbutrin. Reports she takes olanzapine 5 mg daily as needed, and ativan 1 mg daily as needed. States she does not take any other medications for her mental health currently. Nursing and risk assessments completed. Assessments reviewed with LMHP and physician. Admission information reviewed with patient. Patient given a tour of [facility] and instructions on using the facility. Questions regarding [facility] addressed. Pt safety search completed. N RESOURCES ANALYST * Minal Le RN - 01/09/2023 7:44 PM CST Pt presents to triage stating im having a bad mental health day. she reports she is feeling depressed, reports she is more anxious as well. She reports unsure if she is suicidal- reports I dont want to live but I dont want to kill myself. pt cooperative in triage Triage Assessment Row Name 01/09/231943 Triage Assessment (Adult) Airway WDL WDL Respiratory WDL Respiratory WDL WDL Skin Circulation/Temperature WDL Skin Circulation/Temperature WDL WDL Cardiac WDL Cardiac WDL WDL Peripheral/Neurovascular WDL Peripheral Neurovascular WDL WDL Cognitive/Neuro/Behavioral WDL Cognitive/Neuro/Behavioral WDL WDL N RESOURCES ANALYST * Jovan Martinez, DO - 01/09/2023 5:58 PM CST History Chief Complaint: Psychiatric Evaluation HPI Marva Sosa is a 27 year old female with a history of prior anxiety, schizoaffective disorder who presents with increased depression, anxiety and consideration for suicidal ideation. The patient reports she would never be able to harm her self. She reports that she believes she is at a tipping point and that anxiety and depression is getting worse. She is seeking help for mental health. She denies any ingestion. No current substance use. Independent Historian: None - Patient Only Review of External Notes: None ROS: Review of Systems Allergies: Sulfa Drugs Medications: Vyvanse Zyprexa Aldactone Мария Atarax Past Medical History: Schizoaffective Amphetamine dependence Suicidal ideation Self mutilation Drug withdrawal syndrome Social History: PCP: No Ref-Primary, Physician Physical Exam Patient Vitals for the past 24 hrs: BP Temp Temp src Pulse Resp SpO2 Height Weight 01/09/231942 115/83 97.7 ??F (36.5 ??C) Temporal 80 20 99 % 1.6 m (5' 3) 68 kg (150 lb) Physical Exam General: Sitting on bed, comfortable appearing. HENT: No obvious trauma to head Right Ear: External ear normal. Left Ear: External ear normal. Nose: Nose normal. Eyes: Conjunctivae and EOM are normal. Neck: Normal range of motion. Neck supple. No tracheal deviation present. Pulm/Chest: No respiratory distress M/S: Normal range of motion. Neuro: Alert. GCS 15. Skin: Skin is warm and dry. No rash noted. Not diaphoretic. Psych: Normal mood and affect. Behavior is normal. Emergency Department Course Laboratory: Labs Ordered and Resulted from Time of ED Arrival to Time of ED Departure COVID-19 VIRUS (CORONAVIRUS) BY PCR - Normal Result Value SARS CoV2 PCR Negative Emergency Department Course & Assessments: PSS-3 Date and Time Over the past 2 weeks have you felt down, depressed, or hopeless? Over the past 2 weeks have you had thoughts of killing yourself? Have you ever attempted to kill yourself? When did this last happen? User 01/09/231944 yes yes no -- [facility] Suicide assessment completed by mental health (D.E.C., APPLICATION TECHNICIAN, etc.) Interventions: Medications - No data to display Independent Interpretation (X-rays, CTs, rhythm strip): None Consultations/Discussion of Management or Tests: [facility] [employer] [employer] director Social Determinants of Health affecting care: None Assessments: 2129 I examined the patient and obtained history Disposition: The patient was transferred to [facility]. Impression & Plan Medical Decision Making: Marva Sosa is a very pleasant 27 year old year old patient who presents to the emergency department with concern of increasing depression, anxiety and suicidal ideation. She has had this before.Things have been worse. She has no medical concerns she wants addressed. COVID is negative. She is calm and cooperative. Hemodynamically stable. She will be sent to [facility] for continued evaluation and treatment of her mental health. She is in agreement and grateful for this. Diagnosis: ICD-10-CM 1. Depression, unspecified depression type F32.A 2. Anxiety F41.9 3. Suicidal ideation R45.851 Discharge Medications: New Prescriptions No medications on file Scribe Disclosure: IBilly, am serving as a scribe at 9:33 PM on 01/09/2023 to document services personally performed by Jovan Martinez DO based on my observations and the provider's statements to me. 01/09/2023 Jovan Martinez DO Anderson, Robert James, DO 01/09/232138 N RESOURCES ANALYST documented in this encounter Plan of Treatment Not on file documented as of this encounter Procedures Procedure Name Priority Date/Time Associated Diagnosis Comments COVID-19 VIRUS (CORONAVIRUS) BY PCR STAT 01/09/2023 7:46 PM HUMAN RESOURCES ANALYST documented in this encounter Results * Asymptomatic COVID-19 Virus (Coronavirus) by PCR Nasopharyngeal (01/09/2023 7:46 PM HUMAN RESOURCES ANALYST) SARS CoV2 PCR Negative Negative 01/09/2023 8:35 PM HUMAN RESOURCES ANALYST LABORATORY Comment:NEGATIVE: SARS-CoV-2 (COVID-19) RNA not detected, presumed negative. Swab NASOPHARYNGEAL STRUCTURE / Unknown Non-blood Collection / Unknown 01/09/2023 7:46 PM HUMAN RESOURCES ANALYST 01/09/2023 8:01 PM HUMAN RESOURCES ANALYST Narrative LABORATORY - 01/09/2023 8:35 PM HUMAN RESOURCES ANALYST Testing was performed using the Xpert Xpress SARS-CoV-2 Assay on the [employer] Systems. Additional information about this Emergency Use Authorization (EUA) assay can be found via the Lab Guide. This test should be ordered for the detection of SARS-CoV-2 in individuals who meet SARS-CoV-2 clinical and/or epidemiological criteria as well as from individuals without symptoms or other reasons to suspect COVID-19. Test performance for asymptomatic patients has only been established in anterior nasal swab specimens. This test is for in vitro diagnostic use under the FDA EUA for laboratories certified under CLIA to perform high complexity testing. This test has not been FDA cleared or approved. A negative result does not rule out the presence of PCR inhibitors in the specimen or target RNA concentration below the limit of detection for the assay. The possibility of a false negative should be considered if the patient's recent exposure or clinical presentation suggests COVID-19. This test was validated by the [facility]. This laboratory is certified under the Clinical Laboratory Improvement Amendments (CLIA) as qualified to perform high complexity laboratory testing. Jovan Martinez DO LAB - MICRO GEN ERAL ORDERABLES LABORATORY [facility] [address] 1[address] floor, [address] [place] [address], [facility] [phone] documented in this encounter Visit Diagnoses Diagnosis Suicidal ideation Moderate episode of recurrent major depressive disorder (H) Generalized anxiety disorder Schizoaffective disorder, depressive type (H) Schizoaffective disorder, unspecified condition documented in this encounter Administered Medications Inactive Administered Medications - up to 3 most recent administrations Medication Order MAR Action Action Date Dose Rate Site OLANZapine zydis (zyPREXA) ODT tab 5 mg 5 mg, Oral, EVERY 6 HOURS PRN, agitation, aggression, Starting on 01/09/23 at 2310, Combined IM and PO doses may significantly increase the risk of orthostatic hypotension at 30 mg per day or higher. With dry hands, peel back foil backing and gently remove tablet. Do not push oral disintegrating tablet through foil backing. Administer immediately on tongue and oral disintegrating tablet dissolves in seconds, then swallow with saliva. Liquid not required. documented in this encounter Active and Recently Administered Medications Times are shown in HUMAN RESOURCES ANALYST. PRN Medication Order 01/08/2023 01/09/2023 01/10/2023 OLANZapine zydis (zyPREXA) ODT tab 5 mg 5 mg, Oral, EVERY 6 HOURS PRN, agitation, aggression, Starting on 01/09/23 at 2310, Combined IM and PO doses may significantly increase the risk of orthostatic hypotension at 30 mg per day or higher. With dry hands, peel back foil backing and gently remove tablet. Do not push oral disintegrating tablet through foil backing. Administer immediately on tongue and oral disintegrating tablet dissolves in seconds, then swallow with saliva. Liquid not required. documented in this encounter Care Teams Order Picker Relationship Specialty Start Date End Date No Ref-Primary, Physician PCP - General 01/09/23 documented as of this encounter
--- OUTSIDE RECORDS SUMMARY | 2024-01-01 19:29 | XMS_ITS | Referral Summary ---
Author Name Unknown Organization [facility] Address [address] [place] [address] Care Team Providers Care Drill Sharpener Name Role Phone No Ref-Primary, Physician Primary Care Provider Allergies Active Allergy Reactions Criticality Noted Date Comments Sulfa Antibiotics 01/09/2023 Medications Medication Sig Dispensed Refills Start Date End Date Status drospirenone-ethinyl estradiol (LETA) 3-0.03 MG tablet Take 1 tablet by mouth daily at 2 pm 0 12/28/2022 Active OLANZapine (ZYPREXA) 5 MG tablet Take 5 mg by mouth daily as needed 0 Active Social History Tobacco Use Types Packs/Day Years Used Date Smoking Tobacco: Never Assessed Adolescent Education Answer Date Record ed Getting School Help Needed Not on file 08/13 Sex and Gender Information Value Date Recorded Sex Assigned at Not on file Gender Identity Not on file Sexual Orientation Not on file Last Filed Vital Signs Vital Sign Reading Time Taken Comments Blood Pressure 102/59 01/10/2023 9:07 AM SENIOR COPYWRITER Pulse 66 01/10/2023 9:07 AM SENIOR COPYWRITER Temperature 36.7 ??C (98.1 ??F) 01/10/2023 9:07 AM CS T Respiratory Rate 18 01/10/2023 9:07 AM SENIOR COPYWRITER Oxygen Saturation 98% 01/10/2023 9:07 AM SENIOR COPYWRITER Inhaled Oxygen Concentration - - Weight 70.9 kg (156 lb 3.2 oz) 01/09/2023 10:10 PM SENIOR COPYWRITER Height 160 cm (5' 3) 01/09/2023 10:10 PM SENIOR COPYWRITER Body Mass Index 27.67 01/09/2023 10:10 PM SENIOR COPYWRITER Plan of Treatment Not on file Care Teams Drill Sharpener Relationship Specialty Start Date End Date No Ref-Primary, Physician PCP - General 01/09/23
--- OUTSIDE RECORDS SUMMARY | 2024-01-01 19:29 | XMS_ITS | Clinical Summary ---
Author Name Unknown Organization [facility] Address [address] [place] [address] Care Team Providers Care Meat Cutting Teacher Name Role Phone None Reported, Pcp Primary Care Provider Unavail able Source Comments Patient records contain information from all sites at [facility]. For routine questions regarding patient records, call [phone] during business hours, M-F 8:00 AM - 5:00 PM Central Time. Record requests for emergency care only can be directed to [phone] at any time.[facility] Allergies Active Allergy Reactions Criticality Noted Date Comments Sulfa (Sulfonamide Antibiotics) Shortness of breath (Reselect Reaction) 03/20/2018 Medications Medication Sig Dispensed Refills Start Date End Date Status drospirenone-ethinyl estradioL (LETA,OCELLA) 3-0.03 mg per tablet Take 1 tablet by mouth daily. 0 07/22/2022 Active OLANZapine (ZyPREXA) 2.5 mg tablet Take 5 tablets (12.5 mg total) by mouth every evening. May also take 1-2 tablets (2.5-5 mg total) 2 (two) times a day as needed (Psychosis - hallucinations, paranoia). 100 tablet 0 10/05/2022 Active hydrOXYzine (ATARAX) 25 mg tablet Take 1 tablet (25 mg total) by mouth 3 (three) times a day as needed (Anxiety or sleep). 30 tablet 0 10/05/2022 Active melatonin 3 mg tablet Take 1 tablet (3 mg total) by mouth at bedtime as needed for sleep. 30 tablet 0 10/05/2022 Active polyethylene glycol (MIRALAX) 17 gram powder packet Take 1 packet (17 g total) by mouth daily. Dissolve each 17 g dose in 240 mLs (8 ounces) of beverage. 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 Social History Tobacco Use Types Packs/Day Years Used Date Smoking Tobacco: Former Cigarettes Smokeless Tobacco: Never Tobacco Cessation:Counseling Given: Not Answered Alcohol Use Standard Drinks/Week Comments Yes 10 (1 standard drink = 0.6 oz pu re alcohol) PHQ-2 Answer Date Recorded PHQ-2 Score 2 10/06/2022 Depression Answer Date Recor ded PHQ-9 Total Score (max 27) 13 10/06 Nutrition Answer Date Recorded Nutrition: EVOO Fat Source Unknown 01/26 Nutrition: Servings of Fruits/Vegetables per Day Not on file 01/26/2021 Dental Answer Date Recorded Dental: Regular Dentist Unknown 01/28/20 21 Sex and Gender Information Value Date Recorded Sex Assigned at Not on file Gender Identity Not on file Sexual Orientation Not on file Last Filed Vital Signs Vital Sign Reading Time Taken Comments Blood Pressure 107/66 10/06/2022 7:35 AM SALVAGE MECHANIC Pulse 78 10/06/2022 7:35 AM SALVAGE MECHANIC Temperature 36.2 ??C (97.2 ??F) 10/06/2022 7:35 AM CS T Respiratory Rate 16 10/06/2022 7:35 AM SALVAGE MECHANIC Oxygen Saturation 98% 10/06/2022 7:35 AM SALVAGE MECHANIC Inhaled Oxygen Concentration - - Weight 65.4 kg (144 lb 2.9 oz) 10/02/2022 9:00 A M SALVAGE MECHANIC Height 162.6 cm (5' 4) 10/01/2022 12:54 PM SALVAGE MECHANIC Body Mass Index 24.75 10/01/2022 12:54 PM SALVAGE MECHANIC Plan of Treatment Health Maintenance Due Date Last Done Comments Cervical Cancer Screening 1996 HIV Screening 1996 Hepatitis B Vaccines (1 of 3 - 3-dose series) 1996 Hepatitis C Screening 1996 Tobacco Cessation counseling 1996 COVID-19 Vaccine (#1) 06/29/1997 DTaP,Tdap,and Td Vaccines (7 - Td or Tdap) 07/11/2018 07/11/2008, 02/08/2002, 03/03/1998, Additional history exists Influenza Vaccine (#1) 2023 Glucose Test for Med Monitoring 10/01/2023 10/01/2022, 09/30/2022, 03/19/2022 Depression Screening (Annual PHQ-2) 11/21/2023 HPV Vaccines Aged Out No longer eligi ble based on patient's age to complete this topic Pneumococcal vaccine (0-64 years) Aged Out No longer eligible based on patient's age to complete this topic Advance Directives For more information, please contact: [phone] Latest Code Status on File Code Status Date Activated Date Inactivated Comments Full Code 10/01/2022 1:33 PM 10/06/2022 3:53 PM Question Answer Comments Full Code: Not Discussed Due to: Not medically appropriate Care Teams Meat Cutting Teacher Relationship Specialty Start Date End Date None Reported, Pcp PCP - General Family Medicine 09/30/22
--- OUTSIDE RECORDS SUMMARY | 2024-01-01 19:29 | XMS_ITS | Referral Summary ---
Author Name Unknown Organization [facility] Address [address] [place] [address] Care Team Providers Care Capacitor Pack Press Operator Name Role Phone None Reported, Pcp Primary Care Provider Unavail able Source Comments Patient records contain information from all sites at [facility]. For routine questions regarding patient records, call [phone] during business hours, M-F 8:00 AM - 5:00 PM Central Time. Record requests for emergency care only can be directed to [phone] at any time.[facility] Allergies Active Allergy Reactions Criticality Noted [...] Comments Blood Pressure 107/66 10/06/2022 7:35 AM CORK PRESSING MACHINE OPERATOR Pulse 78 10/06/2022 7:35 AM CORK PRESSING MACHINE OPERATOR Temperature 36.2 ??C (97.2 ??F) 10/06/2022 7:35 AM CS T Respiratory Rate 16 10/06/2022 7:35 AM CORK PRESSING MACHINE OPERATOR Oxygen Saturation 98% 10/06/2022 7:35 AM CORK PRESSING MACHINE OPERATOR Inhaled Oxygen Concentration - - Weight 65.4 kg (144 lb 2.9 oz) 10/02/2022 9:00 A M CORK PRESSING MACHINE OPERATOR Height 162.6 cm (5' 4) 10/01/2022 12:54 PM CORK PRESSING MACHINE OPERATOR Body Mass Index 24.75 10/01/2022 12:54 PM CORK PRESSING MACHINE OPERATOR Plan of Treatment Not on file Advance Directives For more information, please contact: [phone] Latest Code Status on File Code Status Date Activated Date Inactivated Comments Full Code 10/01/2022 1:33 PM 10/06/2022 3:53 PM Question Answer Comments Full Code: Not Discussed Due to: Not medically appropriate Care Teams Capacitor Pack Press Operator Relationship Specialty Start Date End Date None Reported, Pcp PCP - General Family Medicine 09/30/22
--- OUTSIDE RECORDS SUMMARY | 2024-01-01 19:29 | XMS_ITS | Clinical Summary ---
Author Name Unknown Organization [facility] Address [place], [place] [address] Care Team Providers Care Brand Advocate Name Role Phone Pcp, No Primary Care Provider Unavailabl e Allergies Active Allergy Reactions Criticality Noted Date Comments Lactose GI Upset,Other - Describe In Comment Field 07/10/2021 Acne breakout Sulfa (Sulfonamide Antibiotics) Dyspnea 05/23/2008 Medications Medication Sig Dispensed Refills Start Date End Date Status Vyvanse 10 mg capsule Take 10 mg by mouth once daily. 0 08/16/2022 Active OLANzapine (ZYPREXA) 2.5 mg tablet TAKE 1 TABLET BY MOUTH EVERY DAY NEEDED FOR AGITATION OR ANXIETY. 0 07/08/2022 Active OLANzapine (ZYPREXA) 5 mg tablet TAKE 1 TABLET BY MOUTH EVERY DAY NEEDED FOR AGITATION OR ANXIETY 0 09/28/2022 Active spironolactone (ALDACTONE) 25 mg tablet Take 25 mg by mouth once daily. 0 08/21/2022 Active drospirenone-ethinyl estradioL (LETA) 3-0.03 mg tabletIndications:Enc ounter for counseling regarding contraception Take 1 Tablet by mouth once daily. 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 Immunizations Name Administration Dates Next Due DTaP 02/08/2002 DTaP-HIB (TriHIBIT) 03/03/1998,07/09/1997,1996,02/08/1997 Hepatitis B (Peds) 01/07/1998,05/03/1997, 997 Inactivated Polio Vaccine 02/08/2002 MMR 07/02/2003,01/07/1998 Meningococcal Vaccine (Menactra) 07/11/2008 Oral Polio Vaccine 07/09/1997,05/03/1997, 997 Tdap 07/11/2008 Varicella Vaccine 03/13/2009,01/07/1998 Family History Medical History Relation Name Comments Good Health Father Good Health Mother Relation Name Status Comments Father Mother Social History Tobacco Use Types Packs/Day Years Used Date Smoking Tobacco: Former Cigarettes Q uit: 11/17/2017 Smokeless Tobacco: Never Tobacco Cessation:Counseling Given: Yes Alcohol Use Standard Drinks/Week Comments Yes 6 (1 standard drink = 0.6 oz pur e alcohol) PHQ-2 Answer Date Recorded PHQ-2 TOTAL SCORE 2 10/11/2022 Social Connections Answer Date Recorded Frequency of Communication with Friends and Fami ly Not on file 11/21/2021 Alcohol Use Answer Date Recorded How often do you have a drink containing alcohol ? 3 10/11/2022 How many drinks containing a lcohol do you have on a typical day when you are drinking? 1 10/11/2022 How often do you have five or more drinks on one occasion? 2 10/11/2022 Financial Resource Strain Answer Date R ecorded Difficulty of Paying Living Expenses Not on file 11/21/2021 Difficulty of Paying Living Expenses Not on file 11/21/2021 Sex and Gender Information Value Date Recorded Sex Assigned at Not on file Gender Identity Not on file Sexual Orientation Not on file Obstetrics History Para Term AB IAB SAB Ectopic Multiple Livin g Live Births 0 0 0 0 0 0 0 0 0 0 Last Filed Vital Signs Vital Sign Reading Time Taken Comments Blood Pressure 102/64 10/11/2022 11:36 AM DIAL REFINISHER Pulse 79 10/11/2022 11:36 AM DIAL REFINISHER Temperature 36.7 ??C (98 ??F) 10/11/2022 11:36 AM DIAL REFINISHER Respiratory Rate 14 05/25/2022 3:48 PM CDT Oxygen Saturation 99% 10/11/2022 11:36 AM DIAL REFINISHER Inhaled Oxygen Concentration - - Weight 67.3 kg (148 lb 6.4 oz) 10/11/2022 11:36 AM DIAL REFINISHER Height 160.7 cm (5' 3.27) 10/11/2022 11:[address] Body Mass Index 26.07 10/11/2022 11:36 AM DIAL REFINISHER Plan of Treatment Health Maintenance Due Date Last Done Comments COVID-19 vaccine series (#1) 06/29/1997 HPV series for age 9-26 (1 - 2-dose series) 2007 Tetanus booster 07/11/2018 07/11/2008 Influenza for age 9-49 07/22/2023 BMI (ht and wt on same day) for age 18+ 10/11/2023 10/11/2022, 07/10/2021, 02/12/2017, Additional history exists Depression screening for age 12+ 10/11/2023 10/11/2022, 03/26/2016 Pap test for age 21-65 06/01/2025 06/01/2022 Tdap Completed 07/11/2008 HIV for age 15-65 Completed 02/12/2017 Hepatitis C screening for age 18-79 Completed 02/12/2017 Pneumococcal series for age 6-64 Aged Out No longer eligible based on patient's age to complete this topic Care Teams Brand Advocate Relationship Specialty Start Date End Date Pcp, No . PCP - General 12/17/14
--- OUTSIDE RECORDS SUMMARY | 2024-01-01 19:29 | XMS_ITS | Encounter Summary ---
Author Name Unknown Organization [facility] Address [address] [place] [address] Care Team Providers Care Supervisor Safety Deposit Name Role Phone No Ref-Primary, Physician Primary Care Provider Encounter Details Date Type Department Care Team (Latest Contact Info) Description 01/09/2023 Travel Social History Tobacco Use Types Packs/Day Years [...] Coronavirus/COVID-19? No / Unsure 01/09/2023 7:43 PM HEALTH UNDERWRITER documented as of this encounter Plan of Treatment Not on file documented as of this encounter Visit Diagnoses Not on filedocumented in this encounter Care Teams Supervisor Safety Deposit Relationship Specialty Start Date End Date No Ref-Primary, Physician PCP - General 01/09/23 documented as of this encounter
--- OUTSIDE RECORDS SUMMARY | 2024-01-01 19:29 | XMS_ITS | Clinical Summary ---
Author Name Unknown Organization [facility] Address [address] [place] [address] Care Team Providers Care Film Mounter Name Role Phone No Ref-Primary, Physician Primary [...] Comments Blood Pressure 102/59 01/10/2023 9:07 AM VP PRODUCTION Pulse 66 01/10/2023 9:07 AM VP PRODUCTION Temperature 36.7 ??C (98.1 ??F) 01/10/2023 9:07 AM CS T Respiratory Rate 18 01/10/2023 9:07 AM VP PRODUCTION Oxygen Saturation 98% 01/10/2023 9:07 AM VP PRODUCTION Inhaled Oxygen Concentration - - Weight 70.9 kg (156 lb 3.2 oz) 01/09/2023 10:10 PM VP PRODUCTION Height 160 cm (5' 3) 01/09/2023 10:10 PM VP PRODUCTION Body Mass Index 27.67 01/09/2023 10:10 PM VP PRODUCTION Plan of Treatment Health Maintenance Due Date Last Done Comments ADVANCE CARE PLANNING 1996 ANNUAL REVIEW OF HM ORDERS 1996 DEPRESSION ACTION PLAN 1996 PHQ-9 1996 YEARLY PREVENTIVE VISIT 1996 COVID-19 Vaccine (#1) 06/29/1997 HIV SCREENING 2011 HEPATITIS C SCREENING 2014 PAP 2017 DTAP/TDAP/TD IMMUNIZATION (7 - Td or Tdap) 07/11/2018 07/11/2008, 02/08/2002, 03/03/1998, Additional history exists INFLUENZA VACCINE (#1) 2023 HEPATITIS B IMMUNIZATION Completed 998, 05/03/1997, 02/08/1997 IPV IMMUNIZATION Completed 02/08/2002, , 05/03/1997, Additional history exists MENINGITIS IMMUNIZATION Aged Out 07/11/2008 No l onger eligible based on patient's age to complete this topic HPV IMMUNIZATION Aged Out No longer e ligible based on patient's age to complete this topic Pneumococcal Vaccine: Pediatrics (0 to 5 Years) and At-Risk Patients (6 to 64 Years) Aged Out No longer eligible based on patient's age to complete this topic RSV MONOCLONAL ANTIBODY Aged Out No l onger eligible based on patient's age to complete this topic Care Teams Film Mounter Relationship Specialty Start Date End Date No Ref-Primary, Physician PCP - General 01/09/23
[2024-01-01 19:48] LABS: Acetaminophen* < 10.0 ug/mL (10.0-30.0); Ethanol* < 0.01 % (0.01-0.03); Salicylate* 3.3 mg/dL (1.0-10)
[2024-01-01 22:25] LABS: HCG Qualitative Serum* Negative (Negative)
[2024-01-01 22:30] LABS: Basophils Absolute Auto 0.03 K/uL (0.00-0.30); Basophils Percent Auto 0.3 % (0.0-3.0); Chloride* 106 mmol/L (96-114); Eosinophils Absolute Auto 0.31 K/uL (0.00-0.50); Eosinophils Percent Auto 2.9 % (0.0-7.0); Hematocrit 40.9 % (33.0-51.0); Hemoglobin* 13.5 gm/dL (12.0-16.0); Immature Granulocytes Abs Auto 0.06 K/uL (0.00-0.30); Immature Granulocytes Pct Auto 0.6 %; Lymphocytes Absolute Auto 3.34 K/uL (0.90-2.90); Mean Corpuscular HGB Conc 33 gm/dL (32-36); Mean Corpuscular Hemoglobin 30 pg (26-34); Mean Corpuscular Volume 92 fL (80-100); Monocytes Percent Auto 6.8 % (0.0-11.0); Neutrophils Absolute Auto 6.32 K/uL (1.7-7.0); Neutrophils Percent Auto 58.4 % (42.0-72.0); Platelet Count* 245 K/uL (140-440); RDW Coefficient of Variation % 11.5 % (11.5-15.5); Red Blood Count 4.45 m/uL (4.00-5.20); White Blood Count* 10.79 K/uL (4.50-11.00)
[2024-01-01 22:31] LABS: Albumin* 4.6 g/dL (3.3-5.0); Potassium* 3.6 mmol/L (3.6-5.1); Sodium* 139 mmol/L (135-149)
[2024-01-01 22:34] LABS: Alanine Aminotransferase* 27 U/L (4-35); Alkaline Phosphatase* 86 U/L (40-150); Anion Gap 9 mEq/L (7-15); Aspartate Amino Transferase* 36 U/L (12-35); Bilirubin Total* 0.6 mg/dL (0.1-1.5); Blood Urea Nitrogen* 17 mg/dL (5-24); Carbon Dioxide* 24 mmol/L (20-32); Creatinine* 0.7 mg/dL (0.5-1.5); Est. Creatinine Clearance* 104.24; Estimated Glomerular Filt Rate 121 ml/min; Glucose* 96 mg/dL (60-115); Slide Review Reflex No; Total Protein* 7.8 g/dL (6.0-8.3)
[2024-01-01 22:35] LABS: Calcium* 9.3 mg/dL (8.4-10.6)
--- NOTE | 2024-01-01 22:51 | ED.NURSE ---
Patient went to restroom to leave urine sample. Sample that was provided was small amount and appeared clear appearing without color. Brought to lab for analysis to see if this is urine.
[2024-01-01 23:24] LABS: PCR FLU A Negative PCR FLU A (Negative); PCR FLU B Negative PCR FLU B (Negative); PCR RSV Negative PCR RSV (Negative); SARS PCR* Negative SARS-CoV-2 (Negative)
--- NOTE | 2024-01-02 03:53 | ED.NURSE ---
Remi [phone] (boyfriend)
[2024-01-02 07:20] LABS: Amphetamine Screen Urine POSITIVE (Negative); Barbiturate Screen Urine Negative (Negative); Benzodiazepines Screen Urine POSITIVE (Negative); Cannabinoid Screen Urine Negative (Negative); Cocaine Screen Urine Negative (Negative); Methadone Screen Urine Negative (Negative); Methamphetamines Screen Urine Negative (Negative); Opiate Screen Urine Negative (Negative); Oxycodone Screen Urine Negative (Negative); Phencyclidine Screen Urine Negative (Negative); Tricyclic Antidepressant Urine Negative (Negative)
--- NOTE | 2024-01-02 07:34 | PC.NURSE ---
Pt resting in room, tearful. States she has appts and work in next few days and concerned about that. Numbers given to RN, will reach out at [phone] to cancel appts, per pt request. Will also call employer per pt request to inform them she will be out due to medical emergency per pt request. Pt verbalizes agreement for safety while here in the ED, will inform RN if feelings of self harm increase. Pt cooperative, on laptop in room, Breakfast tray ordered.
--- NOTE | 2024-01-02 08:36 | PC.NURSE ---
pt states she wants to be discharged, states she feels as though she is safe and would be safe at her parent's home. reviewed plan of care and suggested placement per DEC. Pt tearful but states I understand.
[2024-01-02 10:46] VITALS: BP 132/68; PULSE 80; RESP 16; TEMP 37.1; O2SAT 97
--- NOTE | 2024-01-02 10:52 | PC.NURSE ---
Called [facility], spoke with RN. Physician is still reviewing pt information, will call and update when ready.
--- NOTE | 2024-01-02 12:25 | PC.NURSE ---
Lunch tray ordered. Pt has friend visiting in room.
--- NOTE | 2024-01-02 13:29 | PC.NURSE ---
pt states she finished her lunch, began feeling nauseated. Large emesis, physician in room. See orders. Pt also requesting another DEC assessment as she states I was high, I don't remember saying anything. Physician ordered assessment.
[2024-01-02] MEDS: ONDANSETRON ODT 4 MG TAB PO (13:31)
--- NOTE | 2024-01-02 14:05 | PC.NURSE ---
Report called to [facility]. Will change pt into gown, bag and label belongings per [facility] request.
== END 2024-01-02 15:10 ==
PROVIDERS: Internal Medicine; Emergency Provider Student in an Organized Health Care Education/Training Program; PCP Family Medicine
DX: T42.4X2A Poisoning by benzodiazepines, intentional self-harm, initial encounter (principal)
CPT/HCPCS: 36415; 80053; 80143; 80179; 80306; 82077; 84703; 85025; 87631; 93005; 94761; 99284; 99285; A9270

== ENCOUNTER 2024-01-02 14:25 | Outpatient (CLI) | payer BC, SELFPAY ==
--- OUTSIDE RECORDS SUMMARY | 2024-01-03 20:14 | XMS_ITS ---
Author Name Unknown Organization [facility] Address [address] [place] [address] Care Team Providers Care Human Resources Support Specialist Name Role Phone No Ref-Primary, Physician Primary [...]
--- OUTSIDE RECORDS SUMMARY | 2024-01-03 20:14 | XMS_ITS | Clinical Summary ---
Author Name Unknown Organization [facility] Address [address] [place] [address] Care Team Providers Care Svp Of Digital Name Role Phone None Reported, Pcp Primary Care Provider Unavail able Source Comments Patient records contain information from all sites at [facility]. For routine questions regarding patient records, call [phone] during business hours, M-F 8:00 AM - 5:00 PM Central Time. Record requests for emergency care only can be directed to [phone] at any time.[facility] Allergies Active Allergy Reactions Criticality Noted Date Comments Sulfa (Sulfonamide Antibiotics) Shortness of breath (Reselect Reaction) 03/20/2018 Medications Medication Sig Dispensed Refills Start Date End Date Status drospirenone-et hinyl estradioL (LETA,OCELLA) 3-0.03 mg per tablet Take 1 tablet by mouth daily. 0 07/22/2022 4 Discontinued(Erro r) OLANZapine (ZyPREXA) 2.5 mg tablet Take 5 tablets (12.5 mg total) by mouth every evening. May also take 1-2 tablets (2.5-5 mg total) 2 (two) times a day as needed (Psychosis - hallucination s, paranoia). 100 tablet 0 10/05/2022 4 Discontinued hydrOXYzine (ATARAX) 25 mg tablet Take 1 tablet (25 mg total) by mouth 3 (three) times a day as needed (Anxiety or sleep). 30 tablet 0 10/05/2022 4 Discontinued melatonin 3 mg tablet Take 1 tablet (3 mg total) by mouth at bedtime as needed for sleep. 30 tablet 0 10/05/2022 4 Discontinued polyethylene glycol (MIRALAX) 17 gram powder packet Take 1 packet (17 g total) by mouth daily. Dissolve each 17 g dose in 240 mLs (8 ounces) of beverage. 24 packet 0 10/06/2022 4 Discontinued cariprazine (VRAYLAR) 4.5 mg capsule Take 4.5 mg by mouth daily. 0 Suspended doxazosin (CARDURA) 1 mg tablet Take 0.5 mg by mouth 2 (two) times a day. 0 Suspended lisdexamfetamin e (VYVANSE) 30 mg capsule Take 30 mg by mouth every morning. 0 Suspended LORazepam (ATIVAN) 1 mg tablet Take 0.5 mg by mouth daily as needed for anxiety. 0 Suspended levothyroxine (SYNTHROID, LEVOTHROID) 50 mcg tablet Take 50 mcg by mouth every morning before breakfast. 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 No 01/03/2024 Humiliation, Afraid, Rape, and Kick questionnair e Answer Date Recorded Within the last year, have y ou been afraid of your partner or ex-partner? No 01/03/2024 Within the last year, have y ou been humiliated or emotionally abused in other ways by your partner or ex-partner? No Within the last year, have y ou been kicked, hit, slapped, or otherwise physically hurt by your partner or ex-partner? No 01/03/2024 Within the last year, have y ou been raped or forced to have any kind of sexual activity by your partner or ex-partner? No 01/03/2024 PHQ-2 Answer Date Recorded PHQ-2 Score 2 01/02/2024 Hunger Vital Sign Answer Date Recorded Within the past 12 months, y ou worried that your food would run out before you got the money to buy more. Never true 01/03/20 24 Within the past 12 months, t he food you bought just didn't last and you didn't have money to get more. Never true 01/03/2024 PRAPARE - Transportation Answer Date Re corded In the past 12 months, has l ack of transportation kept you from medical appointments or from getting medications? No 12/22 In the past 12 months, has l ack of transportation kept you from meetings, work, or from getting things needed for daily living? No 01/03/2024 Depression Answer Date Recor ded PHQ-9 Total Score (max 27) 9 01/02 Nutrition Answer Date Recorded Nutrition: EVOO Fat Source Unknown 01/26 Nutrition: Servings of Fruits/Vegetables per Day Not on file 01/26/2021 Dental Answer Date Recorded Dental: Regular Dentist Unknown 01/28/20 21 Housing Stability Answer Date Recorded What is your living situation today? I have a [facility] place to live 01/03/2024 Sex and Gender Information Value Date Recorded Sex Assigned at Not on file Gender Identity Not on file Sexual Orientation Not on file Last Filed Vital Signs Vital Sign Reading Time Taken Comments Blood Pressure 114/61 01/03/2024 5:50 PM CALL CENTER TEAM LEADER Pulse 65 01/03/2024 5:50 PM CALL CENTER TEAM LEADER Temperature 36.2 ??C (97.2 ??F) 01/03/2024 5:50 PM CS T Respiratory Rate 20 01/03/2024 5:50 PM CALL CENTER TEAM LEADER Oxygen Saturation 99% 01/03/2024 5:50 PM CALL CENTER TEAM LEADER Inhaled Oxygen Concentration - - Weight 72.6 kg (159 lb 15.8 oz) 01/02/2024 3:57 PM CALL CENTER TEAM LEADER Height 170 cm (5' 6.93) 01/02/2024 3:57 PM CALL CENTER TEAM LEADER Body Mass Index 25.11 01/02/2024 3:57 PM CALL CENTER TEAM LEADER Plan of Treatment Health Maintenance Due Date Last Done Comments Cervical Cancer Screening 1996 HIV Screening 1996 Hepatitis B Vaccines (1 of 3 - 3-dose series) 1996 Hepatitis C Screening 1996 COVID-19 Vaccine (#1) 06/29/1997 DTaP,Tdap,and Td Vaccines (7 - Td or Tdap) 07/11/2018 07/11/2008, 02/08/2002, 03/03/1998, Additional history exists Influenza Vaccine (#1) 2023 Depression Screening (Annual PHQ-2) 11/21/2023 Glucose Test for Med Monitoring 01/02/2025 01/02/2024, 10/01/2022, 09/30/2022, Additional history exists HPV Vaccines Aged Out No longer eligi ble based on patient's age to complete this topic Pneumococcal vaccine (0-64 years) Aged Out No longer eligible based on patient's age to complete this topic Procedures The patient is currently admitted. The information in this section might not be complete until the patient is discharged. Procedure Name Priority Date/Time Associated Diagnosis Comments DRUG SCREEN URINE Routine 01/02/2024 10: 49 PM CALL CENTER TEAM LEADER TEST, POCT, U (LAB) Routine 01/02/2024 10:49 PM CALL CENTER TEAM LEADER T4 (THYROXINE), FREE, S Routine 01/02/2024 5:44 PM CALL CENTER TEAM LEADER THYROID-STIMULATING HORMONE-SENSITIVE (S-TSH) Routine 01/02/2024 5:44 PM CALL CENTER TEAM LEADER MAGNESIUM, S Routine 01/02/2024 5:44 PM CALL CENTER TEAM LEADER COMPREHENSIVE METABOLIC PANEL, S/P Routine 01/02/2024 5:44 PM CALL CENTER TEAM LEADER CBC WITHOUT DIFFERENTIAL, B Routine 01/02/2024 5:44 PM CALL CENTER TEAM LEADER from Last 3 Months Results * Test, POCT, Urine (Lab) (01/02/2024 10:49 PM CALL CENTER TEAM LEADER) Test, POCT, U Negative 01/02/2024 11:30 PM CALL CENTER TEAM LEADER MKTO Urine (Urine, Midstream) 01/02/2024 10:49 PM CALL CENTER TEAM LEADER 01/02/2024 10:56 PM CALL CENTER TEAM LEADER Janiya Espinoza M.D. LAB POCT ORDERABLES - DEVICE [facility] [address] [place] [address], [place] MKTO [facility] in [place] [address] [place] [address] * (ABNORMAL) Drug Screen Urine (01/02/2024 10:49 PM CALL CENTER TEAM LEADER) [facility] Amphetamines, U Unconfirmed Positive(A) Negative 01/02/2024 11:14 PM CALL CENTER TEAM LEADER MKTO Comment: ----ADDITIONAL INFORMATION---- Talent Director's Cutoff: 500 ng/mL Barbiturates, U Negative Negative 01/02/2024 11:14 PM CALL CENTER TEAM LEADER MKTO Comment: ----ADDITIONAL INFORMATION---- Talent Director's Cutoff: 200 ng/mL Benzodiazepin es, U Unconfirmed Positive(A) Negative 01/02/2024 11:14 PM CALL CENTER TEAM LEADER MKTO Comment: ----ADDITIONAL INFORMATION---- Talent Director's Cutoff: 150 ng/mL Buprenorphine , U Negative Negative 01/02/2024 11:14 PM CALL CENTER TEAM LEADER MKTO Comment: ----ADDITIONAL INFORMATION---- Talent Director's Cutoff: 10 ng/mL Cocaine, U Negative Negative 01/02/2024 11:14 PM CALL CENTER TEAM LEADER MKTO Comment: ----ADDITIONAL INFORMATION---- Talent Director's Cutoff: 150 ng/mL Methadone, U Negative Negative 01/02/2024 11:14 PM CALL CENTER TEAM LEADER MKTO Comment: ----ADDITIONAL INFORMATION---- Talent Director's Cutoff: 200 ng/mL Methamphetami hosea, U Negative Negative 01/02/2024 11:14 PM CALL CENTER TEAM LEADER MKTO Comment: ----ADDITIONAL INFORMATION---- Talent Director's Cutoff: 500 ng/mL Opiates, U Negative Negative 01/02/2024 11:14 PM CALL CENTER TEAM LEADER MKTO Comment: ----ADDITIONAL INFORMATION---- Talent Director's Cutoff: 100 ng/mL Oxycodone, U Negative Negative 01/02/2024 11:14 PM CALL CENTER TEAM LEADER MKTO Comment: ----ADDITIONAL INFORMATION---- Talent Director's Cutoff: 100 ng/mL Phencyclidine , U Negative Negative 01/02/2024 11:14 PM CALL CENTER TEAM LEADER MKTO Comment: ----ADDITIONAL INFORMATION---- Talent Director's Cutoff: 25 ng/mL Tetrahydrocan nabinol, U Negative Negative 01/02/2024 11:14 PM CALL CENTER TEAM LEADER MKTO Comment: ----ADDITIONAL INFORMATION---- Talent Director's Cutoff: 50 ng/mL Tricyclic Antidepressan ts, U Negative Negative 01/02/2024 11:14 PM CALL CENTER TEAM LEADER MKTO Comment: ----ADDITIONAL INFORMATION---- Talent Director's Cutoff: 300 ng/mL THE ABOVE DRUG SCREEN PANEL IS FOR MEDICAL PURPOSES ONLY Urine (Urine, Midstream) 01/02/2024 10:49 PM CALL CENTER TEAM LEADER 01/02/2024 10:56 PM CALL CENTER TEAM LEADER Janiya Espinoza M.D. LAB URINE ORDERABLES [facility] [address] [place] [address], [facility] MKTO [facility] [place] [address] * (ABNORMAL) CBC without Differential (01/02/2024 5:44 PM CALL CENTER TEAM LEADER) Pathologist [facility] Hemoglobin 14.1 11.6 - 15.0 g/dL 01/02/2024 5:53 PM CALL CENTER TEAM LEADER MKTO Hematocrit 41.8 35.5 - 44.9 % 01/02/2024 5:53 PM CALL CENTER TEAM LEADER MKTO Erythrocytes 4.61 3.92 - 5.13 x10(12)/L 01/02/2024 5:53 PM CALL CENTER TEAM LEADER MKTO MCV 90.7 78.2 - 97.9 fL 01/02/2024 5:53 PM CALL CENTER TEAM LEADER MKTO RBC Distrib Width 11.5(L) 12.2 - 16.1 % 01/02/2024 5:53 PM CALL CENTER TEAM LEADER MKTO Platelet Count 230 157 - 371 x10(9)/L 01/02/2024 5:53 PM CALL CENTER TEAM LEADER MKTO Leukocytes 11.6(H) 3.4 - 9.6 x10(9)/L 01/02/2024 5:53 PM CALL CENTER TEAM LEADER MKTO Blood (Blood, Venous) 01/02/2024 5:44 PM CALL CENTER TEAM LEADER 01/02/2024 5:50 PM CALL CENTER TEAM LEADER Narrative Authorizing Provider Result Dayton Espinoza M.D. LAB BLOOD ADD-ON Performing Organization Address City/[facility]/ZIP Co de Phone Number [facility] [address] [place] [address], [place] [address] * (ABNORMAL) S-TSH (Thyroid-Stimulating Hormone - Sensitive) (01/02/2024 5:44 PM CALL CENTER TEAM LEADER) TSH, Sensitive 5.0(H) 0.3 - 4.2 mIU/L 01/02/2024 6:36 PM CALL CENTER TEAM LEADER [facility] Blood (Blood, Venous) 01/02/2024 5:44 PM CALL CENTER TEAM LEADER 01/02/2024 5:50 PM CALL CENTER TEAM LEADER Janiya Espinoza M.D. LAB BLOOD ADD-ON Performing Organization Address [facility] Co de Phone Number [facility] [address] [place] [address], [place] [address] * T4 (Thyroxine), Free (01/02/2024 5:44 PM CALL CENTER TEAM LEADER) T4 (Thyroxine), Free, P 1.2 0.9 - 1.7 ng/dL 01/02/2024 6:36 PM CALL CENTER TEAM LEADER [facility] Comment: Biotin has been identified by the youth specialist as a potential interfering substance. Higher concentrations of biotin may be found in multivitamins, hair/nail supplements, and workout supplements. If the result does not match clinical observations, repeat testing after patient refrains from the use of supplements for at least 12 hours. Blood (Blood, Venous) 01/02/2024 5:44 PM CALL CENTER TEAM LEADER 01/02/2024 5:50 PM CALL CENTER TEAM LEADER Narrative Authorizing Provider Result Dayton Espinoza M.D. LAB BLOOD ADD-ON Performing Organization Address City/[facility]/ZIP Co de Phone Number [facility] [address] [place] [address] * Magnesium (01/02/2024 5:44 PM CALL CENTER TEAM LEADER) Magnesium, P 1.7 1.7 - 2.3 mg/dL 01/02/2024 6:36 PM CALL CENTER TEAM LEADER MKTO Blood (Blood, Venous) 01/02/2024 5:44 PM CALL CENTER TEAM LEADER 01/02/2024 5:50 PM CALL CENTER TEAM LEADER Janiya Espinoza M.D. LAB BLOOD ADD-ON Performing Organization Address [facility] Co de Phone Number [facility] [address] [place] [address] * (ABNORMAL) Comprehensive Metabolic Panel (01/02/2024 5:44 PM CALL CENTER TEAM LEADER) Potassium, P 3.4(L) 3.6 - 5.2 mmol/L 01/02/2024 6:36 PM CALL CENTER TEAM LEADER MKTO Sodium, P 135 135 - 145 mmol/L 01/02/2024 6:36 PM CALL CENTER TEAM LEADER MKTO Chloride, P 100 98 - 107 mmol/L 01/02/2024 6:36 PM CALL CENTER TEAM LEADER MKTO Bicarbonate, P 25 22 - 29 mmol/L 01/02/2024 6:36 PM CALL CENTER TEAM LEADER MKTO Anion Gap, P 10 7 - 15 01/02/2024 6:36 PM CALL CENTER TEAM LEADER MKTO BUN (Blood Urea Nitrogen), P 14 6 - 21 mg/dL 01/02/2024 6:36 PM CALL CENTER TEAM LEADER MKTO Creatinine 0.72 0.59 - 1.04 mg/dL 01/02/2024 6:36 PM CALL CENTER TEAM LEADER MKTO Estimated GFR (eGFR) >90 >=60 mL/min/BS A 01/02/2024 6:36 PM CALL CENTER TEAM LEADER MKTO Comment: Estimated GFR calculated using the 2020 CKD_EPI creatinine equation. Calcium, Total, P 9.4 8.6 - 10.0 mg/dL 01/02/2024 6:36 PM CALL CENTER TEAM LEADER MKTO Glucose, P 120 70 - 140 mg/dL 01/02/2024 6:36 PM CALL CENTER TEAM LEADER MKTO Protein, Total, P 7.6 6.3 - 7.9 g/dL 01/02/2024 6:36 PM CALL CENTER TEAM LEADER MKTO Albumin, P 4.6 3.5 - 5.0 g/dL 01/02/2024 6:36 PM CALL CENTER TEAM LEADER MKTO Aspartate Aminotransferase (AST), P 23 8 - 43 U/L 01/02/2024 6:36 PM CALL CENTER TEAM LEADER MKTO Alkaline Phosphatase, P 75 35 - 104 U/L 01/02/2024 6:36 PM CALL CENTER TEAM LEADER MKTO Alanine Aminotransferase (ALT), P 23 7 - 45 U/L 01/02/2024 6:36 PM CALL CENTER TEAM LEADER MKTO Bilirubin, Total, P 0.6 0.0 - 1.2 mg/dL 01/02/2024 6:36 PM CALL CENTER TEAM LEADER MKTO Blood (Blood, Venous) 01/02/2024 5:44 PM CALL CENTER TEAM LEADER 01/02/2024 5:50 PM CALL CENTER TEAM LEADER Janiya Espinoza M.D. LAB BLOOD ADD-ON [facility] [address] [place] [address], [facility] MKTO [facility] [place] [address] [place] [phone] from Last 3 Months Advance Directives For more information, please contact: [phone] Latest Code Status on File Code Status Date Activated Date Inactivated Comments Full Code 01/02/2024 4:27 PM Question Answer Comments Full Code: Not Discussed Due to: Patient not available Code Status History Code Status Date Activated Date Inactivated Comments Full Code 10/01/2022 1:33 PM 10/06/2022 3:53 PM Question Answer Comments Full Code: Not Discussed Due to: Not medically appropriate Care Teams Svp Of Digital Relationship Specialty Start Date End Date None Reported, Pcp PCP - General Family Medicine 09/30/22
--- OUTSIDE RECORDS SUMMARY | 2024-01-03 20:14 | XMS_ITS | Referral Summary ---
Author Name Unknown Organization [facility] Address [address] [place] [id number] Care Team Providers Care Warehouse Insulation Worker Name Role Phone No Ref-Primary, Physician [...] Comments Blood Pressure 102/59 01/10/2023 9:07 AM JOB SITE SUPERINTENDENT Pulse 66 01/10/2023 9:07 AM JOB SITE SUPERINTENDENT Temperature 36.7 ??C (98.1 ??F) 01/10/2023 9:07 AM CS T Respiratory Rate 18 01/10/2023 9:07 AM JOB SITE SUPERINTENDENT Oxygen Saturation 98% 01/10/2023 9:07 AM JOB SITE SUPERINTENDENT Inhaled Oxygen Concentration - - Weight 70.9 kg (156 lb 3.2 oz) 01/09/2023 10:10 PM JOB SITE SUPERINTENDENT Height 160 cm (5' 3) 01/09/2023 10:10 PM JOB SITE SUPERINTENDENT Body Mass Index 27.67 01/09/2023 10:10 PM JOB SITE SUPERINTENDENT Plan of Treatment Not on file Care Teams Warehouse Insulation Worker Relationship Specialty Start Date End Date No Ref-Primary, Physician PCP - General 01/09/23
--- OUTSIDE RECORDS SUMMARY | 2024-01-03 20:14 | XMS_ITS | Encounter Summary ---
Author Name Unknown Organization [facility] Address [address] [place] [address] Care Team Providers Care Blood Bank Attendant Name Role Phone None Reported, Pcp Primary Care Provider Unavail able Encounter Details Date Type Department Care Team (Latest Contact Info) Description 01/02/2024 Intake [facility] Social History Tobacco Use Types Packs/Day Years Used Date Smoking Tobacco: Former Cigarettes Smokeless Tobacco: Never Alcohol Use Standard Drinks/Week Comments Yes 10 (1 standard drink = 0.6 oz pu re alcohol) [facility] Utilities Answer Date Recorded In the past 12 months has [facility] [employer], gas, oil, or water [employer] threatened to shut off services in your [...] your living situation today? I have a [facility] place to live 01/03/2024 Sex and Gender Information Value Date Recorded Sex Assigned at Not on file Gender Identity Not on file Sexual Orientation Not on file documented as of this encounter Last Filed Vital Signs Vital Sign Reading Time Taken Comments Blood Pressure 126/86 01/02/2024 6:22 AM CASHIER Pulse 108 01/02/2024 6:22 AM CASHIER Temperature - - Respiratory Rate 18 01/02/2024 6:22 AM CASHIER Oxygen Saturation 98% 01/02/2024 6:22 AM CASHIER Inhaled Oxygen Concentration - - Weight - - Height - - Body Mass Index - - documented in this encounter Plan of Treatment Not on file documented as of this encounter Visit Diagnoses Not on filedocumented in this encounter Additional Health Concerns Assessment Noted Time PHQ-9 Depression Total Score: 9 01/02/20 24 6:48 PM CASHIER documented as of this encounter Care Teams Blood Bank Attendant Relationship Specialty Start Date End Date None Reported, Pcp PCP - General Family Medicine 09/30/22 documented as of this encounter
--- OUTSIDE RECORDS SUMMARY | 2024-01-03 20:14 | XMS_ITS | Clinical Summary ---
Author Name Unknown Organization [facility] Address [address] [place] [address] Care Team Providers Care Robotype Operator Name Role Phone No Ref-Primary, Physician Primary [...] Comments Blood Pressure 102/59 01/10/2023 9:07 AM TELEPHONE MAINTAINER Pulse 66 01/10/2023 9:07 AM TELEPHONE MAINTAINER Temperature 36.7 ??C (98.1 ??F) 01/10/2023 9:07 AM CS T Respiratory Rate 18 01/10/2023 9:07 AM TELEPHONE MAINTAINER Oxygen Saturation 98% 01/10/2023 9:07 AM TELEPHONE MAINTAINER Inhaled Oxygen Concentration - - Weight 70.9 kg (156 lb 3.2 oz) 01/09/2023 10:10 PM TELEPHONE MAINTAINER Height 160 cm (5' 3) 01/09/2023 10:10 PM TELEPHONE MAINTAINER Body Mass Index 27.67 01/09/2023 10:10 PM TELEPHONE MAINTAINER Plan of Treatment Health Maintenance Due Date [...] age to complete this topic Care Teams Robotype Operator Relationship Specialty Start Date End Date No Ref-Primary, Physician PCP - General 01/09/23
--- OUTSIDE RECORDS SUMMARY | 2024-01-03 20:14 | XMS_ITS | Encounter Summary ---
Author Name Unknown Organization [facility] Address [address] [place] [id number] Care Team Providers Care Cardiac Cath Technician Name Role Phone No Ref-Primary, Physician Primary Care Provider Reason for Visit * Reason Comments Psychiatric Evaluation Encounter Details Date Type Department Care Team (Late st Contact Info) Description 01/09/2023 9:53 PM ESTATE PLANNING PARALEGAL - 01/10/2023 2:15 PM ESTATE PLANNING PARALEGAL Emergency [facility] Emergency Dept [address] [place] [id number] Jovan Martinez, DO [facility] [address] [place], [place] [phone] Suicidal ideation; Moderate episode of recurrent major [...] Coronavirus/COVID-19? No / Unsure 01/09/2023 7:43 PM ESTATE PLANNING PARALEGAL documented as of this encounter Last Filed Vital Signs Vital Sign Reading Time Taken Comments Blood Pressure 102/59 01/10/2023 9:07 AM ESTATE PLANNING PARALEGAL Pulse 66 01/10/2023 9:07 AM ESTATE PLANNING PARALEGAL Temperature 36.7 ??C (98.1 ??F) 01/10/2023 9:07 AM CS T Respiratory Rate 18 01/10/2023 9:07 AM ESTATE PLANNING PARALEGAL Oxygen Saturation 98% 01/10/2023 9:07 AM ESTATE PLANNING PARALEGAL Inhaled Oxygen Concentration - - Weight 70.9 kg (156 lb 3.2 oz) 01/09/2023 10:10 PM ESTATE PLANNING PARALEGAL Height 160 cm (5' 3) 01/09/2023 10:10 PM ESTATE PLANNING PARALEGAL Body Mass Index 27.67 01/09/2023 10:10 PM ESTATE PLANNING PARALEGAL documented in this encounter Discharge Instructions * Discharge Instructions* Aurea Dia, [facility] - 01/10/2023 12:58 PM ESTATE PLANNING PARALEGAL Aftercare Plan Please sign the Release of Information (SHERITA) prior to leaving the hospital. By signing you are allowing us to share visit information with current providers and to make recommended referrals on your behalf. Follow up with established providers and supports as scheduled. Continue taking medications as prescribed. Abstain from drugs and alcohol. Utilize your [facility] crisis team as needed. They are available 13/06. Contact information is listed below. If I am feeling unsafe or I am in a crisis, I will: Contact my established care providers Call the National Suicide Prevention Lifeline: [phone] Go to the nearest emergency room Call [...] members of my community or place of lutheran, mental health crisis lines, or 911 Your [facility] has a mental health crisis team you can call 13/06: Crisis Response for [facility], [facility] Mental Health Crisis Line: Other things that are important when I???m in crisis: to remember that the feelings I am having right now are temporary, and it won't feel like this forever, and that it is okay and important to ask for help Crisis Lines Crisis Text Line Text 672092 You will be connected with a trained live crisis counselor to provide support. National Hope Line 1.800.SUICIDE [2141892] Community Resources Fast Tracker Linking people to mental health and substance use disorder resources fasttrackermn.org [place] Mental Health Warm Line Peer to peer support Tuesday thru Tuesday, 12 pm to 10 pm [phone] or [place] Support to [address] National [place] on Mental Illness (BANDAR) 886.781.6081 or 1.888.BANDAR.HELPS Mental Health Apps My3 https://GATe Technologypp.org/ VirtualHopeBox https://reBuy.de/apps/gbeqzzf-lajm-rma/ Additional Information Today you were seen by a licensed mental health professional through Triage and Transition services, [facility] (P) for a crisis assessment in the Emergency Department at [facility]. It is recommended that you follow up with your established providers (psychiatrist, mental health therapist, and/or primary care doctor - as relevant) as soon as possible. Coordinators from [facility] will be calling you in the next 24-48 hours to ensure that you have the resources you need. You can also contact [facility] coordinators directly at [phone]. You may have been scheduled for or offered an appointment with a mental health provider. [facility] maintains an extensive network of licensed [facility] health providers to connect patients with [...] providers outside your care system as needed. TE PLANNING [place]ALEGAL documented in this encounter Medications at Time [...] obtained via phone. Their phone number is ([phone]) and they last had contactwith patient on 01/09/23 (they went to [facility]). What happened today: 'I talked to her boyfriend and was told she came into the hospital. It's similar to the last time she checked herself in. The last time she checked herself in was in [facility].' She states that she wanted pt to [...] to work well, but not good for group home use Has patient made comments about wanting to kill themselves/others: She states that pt has not made comments about harming others; she states that deep down pt doesn't want to be going through this. Mom has not heard any specific suicidal comments If d/c is recommended, can they take part in safety/aftercare planning: Yes Other information: Aniat reports that she is wondering if pt could get a referral for a county worker Margarita Oropeza MA, [facility], [facility] 01/10/23 6:00AM-6:13AM TE PLANNING PARALEGAL documented in this encounter Consult Notes * Aurea Dia, [facility] - 01/10/2023 9:21 AM CST Diagnostic Evaluation Consultation Crisis Assessment Patient was assessed: In Person Patient location: [facility] Was a release of information signed: Yes. Providers included on the release: Dr Kianna Jacobs, [facility], with [facility], and Yessy Lin, [facility], [facility] Referral Data and Chief Complaint Marva Sosa is a 27 year old, who uses she/her pronouns, and presents to the ED with family/friends. Patient is referred to the ED by self. Patient is presenting to the ED for the following concerns: worsening symptoms of depression with passive SI. Informed Consent and Assessment Methods Patient is her own guardian. Iron Erector met with patient and explained the crisis [...] this is why she came here from [place] to the [facility] unit, to be in a safe place and able to talk with people whocan provide professional guidance. 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 She denies any legal issues, reports good support from parents, boyfriend and friends. Significant Clinical History Pt reports one admission to [facility] in Sep for increased depression with SI [...] Yessy Lin with [facility] in [place], twice per week and reports that this is beneficial. She has also been seeing her psychiatrist, Dr Jacobs as scheduled every couple of months. Collateral Information The following information was obtained by Margarita Oropeza MA, [facility], [facility] On 01/10/23 at 6:00AM: The following information was received from Anita Ian whose relationship to the patient is mothers. Information was obtained via phone. Their phone number is ([phone]) and they last had contactwith patient on 01/09/23 (they went to [facility]). ?? What happened today: 'I talked to her boyfriend and was told she came into the hospital. It's similar to the last time she checked herself in. 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 Has patient made comments about [...] for a county worker ?? Risk Assessment [place] Suicide Severity Rating Scale Full Clinical Version:01/10/23 [...] Comments regarding subjective versus objective responses to [place] tool: Pt's responses are congruent with her [...] Safety Plan: will remain on observation at [facility], restart medication Does the patient have thoughts [...] Psychiatrist: Yes. Name: Dr Kianna Jacobs. Location: [facility] [phone]. Date of last visit: month ago. Frequency: every couple of months. Perceived helpfulness: good. Therapist: Yes. Name: Yessy Lin [facility]. Location: [facility]. Date of last visit: last week. Frequency: e/o week. Perceived helpfulness: good. Tire Manager: No CTSS or ARMHS: No ACT Team: [...] in minutes: 2.0 hrs CPT code(s) utilized: 54002 - Psychotherapy for Crisis - 60 (30-74*) min Edil Jackson, VICE PRESIDENT OF PROCUREMENT, LABORER SYRUP MACHINE, VICE PRESIDENT OF PROCUREMENT, Psychotherapist DEC - Triage & Transition Services Callback: [phone] Aftercare Plan Please sign the Release of Information (SHERITA) prior to leaving the hospital. By signing you are allowing us to share visit information with current providers and to make recommended referrals on your behalf. Follow up with established providers and supports as scheduled. Continue taking medications as prescribed. Abstain from drugs and alcohol. Utilize your [facility] mental [facility] crisis team as needed. They are available 13/06. Contact information is listed below. If I am feeling unsafe or I am in a crisis, I will: Contact my established care providers Call the National Suicide Prevention Lifeline: [phone] Go to the nearest emergency room Call 160 Warning signs that I or other people [...] use community resources including mental health hotlines, [facility] crisis teams, or apps. Things I can [...] members of my community or place of lutheran, mental health crisis lines, or 911 Your [facility] has a mental health crisis team you can call 13/06: Crisis Response for [facility], [facility] Mental Health Crisis Line: Other things that are important when I???m in crisis: to remember that the feelings I am having right now are temporary, and it won't feel like this forever, and that it is okay and important to ask for help Crisis Lines Crisis Text Line Text 789860 You will be connected with a trained live crisis counselor to provide support. National Hope Line 1.800.SUICIDE [3806250] Community Resources Fast Tracker Linking people to mental health and substance use disorder resources Scrap Connection.KOWN [place] Mental Health Warm Line Peer to peer support Tuesday thru Tuesday, 12 pm to 10 pm [phone] or [place] [address] National [place] on Mental Illness (BANDAR) 014.263.3793 or 1.888.BANDAR.HELPS Mental Health Apps My3 https://Reflectance Medical.org/ VirtualHopeBox https://reBuy.de/apps/wpxahkj-tiwf-han/ Additional Information Today you were seen by a licensed mental health professional through Triage and Transition services, [facility] ([facility]) for a crisis assessment in the Emergency Department at [facility]. It is recommended that you follow up with your established providers (psychiatrist, mental health therapist, and/or primary care doctor - as relevant) as soon as possible. Coordinators from [facility] will be calling you in the next 24-48 hours to ensure that you have the resources you need. You can also contact [facility] coordinators directly at [phone]. You may have been scheduled for or offered an appointment with a mental health provider. [facility] maintains an extensive network of licensed [place] [facility] health providers to connect patients with the services they need. We do not charge providers a fee to participate in our referral network. We match patients with providers based on a patient's specific needs, insurance coverage, and location. Our first effort will be to refer you to a provider within your care system, and will utilize providers outside your care system as needed. TE PLANNING PARALEGAL documented in this encounter ED Notes * [...] at 1415 accompanied staff. Discharged to home. TE PLANNING PARALEGAL * Clara Mcdaniel RN - 01/10/2023 12:42 PM CST Talks about feeling safer this morning. Lives in her own apartment with her cat. 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 Feels she has not been with her friends lately and doing her hobbies. Admits to drinking obsessively the past few nights. She feels her boyfriend is supportive. TE PLANNING PARALEGAL * Jin Mascorro CNP - 01/10/2023 11:17 AM CST [facility] Unit - Psychiatry Combined Observation Note and Discharge Summary [facility] Emergency Department Observation Initiation Date: Jan 09, [...] department and deemed stable for transfer to [facility] for further psychiatric assessment. Here at [facility], patient notes worsening feelings of depression over [...] off medications.She recalls her past hospitalization at [facility] a few months ago. Recalls at that time feeling as though she was hearing other people's thoughts. She recalls experiencing visual hallucinations. She denies using any amphetamines or other stimulants around that time, reporting she has not used any illicit stimulants for the past 5 years. 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 She [...] have reviewed the assessment completed by the [facility]. During the observation period, the patient [...] stable housing, employment -- Jin Mascorro CNP [facility] EMERGENCY DEPT [facility] Unit 01/09/2023 Jin Mascorro CNP 01/10/23 1132 Jin Mascorro CNP 01/10/23 1134 TE PLANNING PARALEGAL * Clara Mcdaniel RN - 01/10/2023 9:11 AM CST Patient resting in Sensory Room B and vitals taken. Offers no physical complains and contract for safety while in the hospital. TE PLANNING PARALEGAL * Etta Marion LGSW - 01/09/2023 11:44 PM CST Iron Erector attempted to meet with patient, after repeating her name multiple times she woke up. Asked patient to come complete assessment in consult room A and patient mumbled something, when asked to repeat patient asked to do assessment in the morning to continue sleeping. Collateral Information: Attempted to obtain collateral information from patient's Mother/Emergency Contact Anita Sosa ([phone]) but this phone call was not answered. Iron Erector left a voicemail without PHI requesting a return call. JOHN Calderon on 01/09/2023 at 11:48 PM TE PLANNING PARALEGAL Associated attestation - Arminda Milan LICSW - 01/19/2023 10:46 AM ESTATE PLANNING [place]GAL Service Performed and Documented by JOHN Note [...] regarding [facility] addressed. Pt safety search completed. TE PLANNING PARALEGAL * Minal Le RN - 01/09/2023 7:44 [...] WDL WDL Cognitive/Neuro/Behavioral WDL Cognitive/Neuro/Behavioral WDL WDL TE PLANNING PARALEGAL * Jovan Martinez, DO - 01/09/2023 5:58 [...] happen? User 01/09/231944 yes yes no -- [facility] Suicide assessment completed by mental health (D.E.C., EXECUTIVE CREATIVE DIRECTOR, etc.) Interventions: Medications - No data to display Independent Interpretation (X-rays, CTs, rhythm strip): None Consultations/Discussion of Management or Tests: [facility] paint roller cover machine setter Social Determinants of Health affecting care: None Assessments: 2129 I examined the patient and obtained history Disposition: The patient was transferred to [facility]. Impression & Plan Medical Decision Making: Marva [...] Hemodynamically stable. [facility] and treatment of her [...] Martinez DO Anderson, Robert James, DO 01/09/232138 TE PLANNING PARALEGAL documented in this encounter Plan of Treatment Not on file documented as of this encounter Procedures Procedure Name Priority Date/Time Associated Diagnosis Comments COVID-19 VIRUS (CORONAVIRUS) BY PCR STAT 01/09/2023 7:46 PM ESTATE PLANNING PARALEGAL documented in this encounter Results * Asymptomatic COVID-19 Virus (Coronavirus) by PCR Nasopharyngeal (01/09/2023 7:46 PM ESTATE PLANNING PARALEGAL) SARS CoV2 PCR Negative Negative 01/09/2023 8:35 PM ESTATE PLANNING PARALEGAL LABORATORY Comment:NEGATIVE: SARS-CoV-2 (COVID-19) RNA not detected, presumed negative. Swab NASOPHARYNGEAL STRUCTURE / Unknown Non-blood Collection / Unknown 01/09/2023 7:46 PM ESTATE PLANNING PARALEGAL 01/09/2023 8:01 PM ESTATE PLANNING PARALEGAL Narrative LABORATORY - 01/09/2023 8:35 PM ESTATE PLANNING PARALEGAL Testing was performed using the Xpert Xpress SARS-CoV-2 Assay on the [employer]. Additional information about this Emergency [...] COVID-19. This test was validated by the [facility]. This laboratory is certified under the Clinical Laboratory Improvement Amendments (CLIA) as qualified to perform high complexity laboratory testing. Jovan Martinez DO LAB - MICRO GEN ERAL ORDERABLES LABORATORY [facility] [address] floor, [address] [place] [address], [facility] [phone] documented in this encounter Visit Diagnoses Diagnosis [...] Recently Administered Medications Times are shown in ESTATE PLANNING PARALEGAL. PRN Medication Order 01/08/2023 01/09/2023 01/10/2023 OLANZapine [...] required. documented in this encounter Care Teams Cardiac Cath Technician Relationship Specialty Start Date End Date No Ref-Primary, Physician PCP - General 01/09/23 documented as of this encounter
--- OUTSIDE RECORDS SUMMARY | 2024-01-03 20:14 | XMS_ITS ---
Author Name Unknown Organization [facility] Address [address] [place] [address] Care Team Providers Care Wine Merchant Name Role Phone Unavailable Unavailable Unavailable Surgery Details Not on file Complications Check Surgery Details section. Procedure Estimated Blood Loss Check Surgery Details section. Procedure Findings Check Surgery Details section. Procedure Specimens Taken Check Surgery Details section.
--- OUTSIDE RECORDS SUMMARY | 2024-01-03 20:14 | XMS_ITS | Clinical Summary ---
Author Name Unknown Organization [facility] Address [place], [place] [address] Care Team Providers Care Irrigation Tax Assessor Collector Name Role Phone Pcp, No Primary Care [...] Comments Blood Pressure 102/64 10/11/2022 11:36 AM TASSEL SNIPPER Pulse 79 10/11/2022 11:36 AM TASSEL SNIPPER Temperature 36.7 ??C (98 ??F) 10/11/2022 11:36 AM TASSEL SNIPPER Respiratory Rate 14 05/25/2022 3:48 PM CDT Oxygen Saturation 99% 10/11/2022 11:36 AM TASSEL SNIPPER Inhaled Oxygen Concentration - - Weight 67.3 kg (148 lb 6.4 oz) 10/11/2022 11:36 AM TASSEL SNIPPER Height 160.7 cm (5' 3.27) 10/11/2022 11:[address] Body Mass Index 26.07 10/11/2022 11:36 AM TASSEL SNIPPER Plan of Treatment Health Maintenance Due Date Last Done Comments COVID-19 vaccine series (#1) 06/29/1997 Tetanus booster 07/11/2018 07/11/2008 Influenza for age [...] age to complete this topic Care Teams Irrigation Tax Assessor Collector Relationship Specialty Start Date End Date Pcp, No . PCP - General 12/17/14
--- OUTSIDE RECORDS SUMMARY | 2024-01-03 20:14 | XMS_ITS | Encounter Summary ---
Author Name Unknown Organization [facility] Address [address] [place] [address] Care Team Providers Care Surgical Supervisor Name Role Phone No Ref-Primary, Physician Primary [...] Coronavirus/COVID-19? No / Unsure 01/09/2023 7:43 PM CHEMICAL WORKER documented as of this encounter Plan of Treatment Not on file documented as of this encounter Visit Diagnoses Not on filedocumented in this encounter Care Teams Surgical Supervisor Relationship Specialty Start Date End Date No Ref-Primary, Physician PCP - General 01/09/23 documented as of this encounter
--- OUTSIDE RECORDS SUMMARY | 2024-01-03 20:14 | XMS_ITS | Referral Summary ---
Author Name Unknown Organization [facility] Address [address] [place] [address] Care Team Providers Care Manager Of Patient Name Role Phone None Reported, Pcp Primary Care Provider Unavail able Source Comments Patient records contain information from all sites at [facility]. For routine questions regarding patient records, call [phone] during business hours, M-F 8:00 AM - 5:00 PM Central Time. Record requests for emergency care only can be directed to [phone] at any time.[facility] Encounters Date Type Department Care Team Description 01/02/2024 Intake [facility] from Last 3 Months Allergies Active Allergy Reactions Criticality Noted Date [...] drink = 0.6 oz pu re alcohol) [facility] Pictities Answer Date Recorded In the past 12 months has [facility] Activity [employer], oil, or water [employer] threatened to shut off services in your [...] your living situation today? I have a [facility] place to live 01/03/2024 Sex and Gender Information Value Date Recorded Sex Assigned at Not on file Gender Identity Not on file Sexual Orientation Not on file Last Filed Vital Signs Vital Sign Reading Time Taken Comments Blood Pressure 114/61 01/03/2024 5:50 PM HUMAN RESOURCE OFFICER Pulse 65 01/03/2024 5:50 PM HUMAN RESOURCE OFFICER Temperature 36.2 ??C (97.2 ??F) 01/03/2024 5:50 PM CS T Respiratory Rate 20 01/03/2024 5:50 PM HUMAN RESOURCE OFFICER Oxygen Saturation 99% 01/03/2024 5:50 PM HUMAN RESOURCE OFFICER Inhaled Oxygen Concentration - - Weight 72.6 kg (159 lb 15.8 oz) 01/02/2024 3:57 PM HUMAN RESOURCE OFFICER Height 170 cm (5' 6.93) 01/02/2024 3:57 PM HUMAN RESOURCE OFFICER Body Mass Index 25.11 01/02/2024 3:57 PM HUMAN RESOURCE OFFICER Plan of Treatment Not on file Procedures The patient is currently admitted. The information in this section might not be complete until the patient is discharged. Procedure Name Priority Date/Time Associated Diagnosis Comments DRUG SCREEN URINE Routine 01/02/2024 10: 49 PM HUMAN RESOURCE OFFICER TEST, POCT, U (LAB) Routine 01/02/2024 10:49 PM HUMAN RESOURCE OFFICER T4 (THYROXINE), FREE, S Routine 01/02/2024 5:44 PM HUMAN RESOURCE OFFICER THYROID-STIMULATING HORMONE-SENSITIVE (S-TSH) Routine 01/02/2024 5:44 PM HUMAN RESOURCE OFFICER MAGNESIUM, S Routine 01/02/2024 5:44 PM HUMAN RESOURCE OFFICER COMPREHENSIVE METABOLIC PANEL, S/P Routine 01/02/2024 5:44 PM HUMAN RESOURCE OFFICER CBC WITHOUT DIFFERENTIAL, B Routine 01/02/2024 5:44 PM HUMAN RESOURCE OFFICER from Last 3 Months Results * Test, POCT, Urine (Lab) (01/02/2024 10:49 PM HUMAN RESOURCE OFFICER) Pathologist [facility] Test, POCT, U Negative 01/02/2024 11:30 PM HUMAN RESOURCE OFFICER [facility] Urine (Urine, Midstream) 01/02/2024 10:49 PM HUMAN RESOURCE OFFICER 01/02/2024 10:56 PM HUMAN RESOURCE OFFICER Janiya Espinoza M.D. LAB POCT ORDERABLES - DEVICE [facility] [address] [place] [address], [facility] in [address] [address] * (ABNORMAL) Drug Screen Urine (01/02/2024 10:49 PM HUMAN RESOURCE OFFICER) Amphetamines, U Unconfirmed Positive(A) Negative 01/02/2024 11:14 PM HUMAN RESOURCE OFFICER [facility] Comment: ----ADDITIONAL INFORMATION---- Auto Damage Adjuster's Cutoff: 500 ng/mL Barbiturates, U Negative Negative 01/02/2024 11:14 PM HUMAN RESOURCE OFFICER [facility] Comment: ----ADDITIONAL INFORMATION---- Auto Damage Adjuster's Cutoff: 200 ng/mL Benzodiazepin es, U Unconfirmed Positive(A) Negative 01/02/2024 11:14 PM HUMAN RESOURCE OFFICER [facility] Comment: ----ADDITIONAL INFORMATION---- Auto Damage Adjuster's Cutoff: 150 ng/mL Buprenorphine , U Negative Negative 01/02/2024 11:14 PM HUMAN RESOURCE OFFICER [facility] Comment: ----ADDITIONAL INFORMATION---- Auto Damage Adjuster's Cutoff: 10 ng/mL Cocaine, U Negative Negative 01/02/2024 11:14 PM HUMAN RESOURCE OFFICER [facility] Comment: ----ADDITIONAL INFORMATION---- Auto Damage Adjuster's Cutoff: 150 ng/mL Methadone, U Negative Negative 01/02/2024 11:14 PM HUMAN RESOURCE OFFICER [facility] Comment: ----ADDITIONAL INFORMATION---- Auto Damage Adjuster's Cutoff: 200 ng/mL Methamphetami hosea, U Negative Negative 01/02/2024 11:14 PM HUMAN RESOURCE OFFICER [facility] Comment: ----ADDITIONAL INFORMATION---- Auto Damage Adjuster's Cutoff: 500 ng/mL Opiates, U Negative Negative 01/02/2024 11:14 PM HUMAN RESOURCE OFFICER [facility] Comment: ----ADDITIONAL INFORMATION---- Auto Damage Adjuster's Cutoff: 100 ng/mL Oxycodone, U Negative Negative 01/02/2024 11:14 PM HUMAN RESOURCE OFFICER [facility] Comment: ----ADDITIONAL INFORMATION---- Auto Damage Adjuster's Cutoff: 100 ng/mL Phencyclidine , U Negative Negative 01/02/2024 11:14 PM HUMAN RESOURCE OFFICER [facility] Comment: ----ADDITIONAL INFORMATION---- Auto Damage Adjuster's Cutoff: 25 ng/mL Tetrahydrocan nabinol, U Negative Negative 01/02/2024 11:14 PM HUMAN RESOURCE OFFICER [facility] Comment: ----ADDITIONAL INFORMATION---- Auto Damage Adjuster's Cutoff: 50 ng/mL Tricyclic Antidepressan ts, U Negative Negative 01/02/2024 11:14 PM HUMAN RESOURCE OFFICER [facility] Comment: ----ADDITIONAL INFORMATION---- Auto Damage Adjuster's Cutoff: 300 ng/mL THE ABOVE DRUG SCREEN PANEL IS FOR MEDICAL PURPOSES ONLY Urine (Urine, Midstream) 01/02/2024 10:49 PM HUMAN RESOURCE OFFICER 01/02/2024 10:56 PM HUMAN RESOURCE OFFICER Janiya Espinoza M.D. LAB URINE ORDERABLES Performing Organization Address [facility] Co de Phone Number [facility] [address] [place] [address], [address] [address] * (ABNORMAL) CBC without Differential (01/02/2024 5:44 PM HUMAN RESOURCE OFFICER) Hemoglobin 14.1 11.6 - 15.0 g/dL 01/02/2024 5:53 PM HUMAN RESOURCE OFFICER [facility] Hematocrit 41.8 35.5 - 44.9 % 01/02/2024 5:53 PM HUMAN RESOURCE OFFICER [facility] Erythrocytes 4.61 3.92 - 5.13 x10(12)/L 01/02/2024 5:53 PM HUMAN RESOURCE OFFICER [facility] MCV 90.7 78.2 - 97.9 fL 01/02/2024 5:53 PM HUMAN RESOURCE OFFICER [facility] RBC Distrib Width 11.5(L) 12.2 - 16.1 % 01/02/2024 5:53 PM HUMAN RESOURCE OFFICER [facility] Platelet Count 230 157 - 371 x10(9)/L 01/02/2024 5:53 PM HUMAN RESOURCE OFFICER [facility] Leukocytes 11.6(H) 3.4 - 9.6 x10(9)/L 01/02/2024 5:53 PM HUMAN RESOURCE OFFICER [facility] Blood (Blood, Venous) 01/02/2024 5:44 PM HUMAN RESOURCE OFFICER 01/02/2024 5:50 PM HUMAN RESOURCE OFFICER Janiya LAUREANO BLOOD ADD-ON Performing Organization Address City/[facility]/ZIP Co de Phone Number [facility] [place] [address], [address] [address] * (ABNORMAL) S-TSH (Thyroid-Stimulating Hormone - Sensitive) (01/02/2024 5:44 PM HUMAN RESOURCE OFFICER) TSH, Sensitive 5.0(H) 0.3 - 4.2 mIU/L 01/02/2024 6:36 PM HUMAN RESOURCE OFFICER [facility] Blood (Blood, Venous) 01/02/2024 5:44 PM HUMAN RESOURCE OFFICER 01/02/2024 5:50 PM HUMAN RESOURCE OFFICER Narrative Authorizing Provider Result Dayton Espinoza M.D. LAB BLOOD ADD-ON [facility] [address] [place] [address], [facility] [address] [place] [address] * T4 (Thyroxine), Free (01/02/2024 5:44 PM HUMAN RESOURCE OFFICER) T4 (Thyroxine), Free, P 1.2 0.9 - 1.7 ng/dL 01/02/2024 6:36 PM HUMAN RESOURCE OFFICER [facility] Comment: Biotin has been identified by the stitcher set up operator automatic as a potential interfering substance. Higher concentrations of biotin may be found in multivitamins, hair/nail supplements, and workout supplements. If the result does not match clinical observations, repeat testing after patient refrains from the use of supplements for at least 12 hours. Blood (Blood, Venous) 01/02/2024 5:44 PM HUMAN RESOURCE OFFICER 01/02/2024 5:50 PM HUMAN RESOURCE OFFICER Janiya Espinoza M.D. LAB BLOOD ADD-ON Performing Organization Address City/[facility]/ZIP Co de Phone Number [facility] [address] [place] [address], [facility] [address] [place] [address] * Magnesium (01/02/2024 5:44 PM HUMAN RESOURCE OFFICER) Magnesium, P 1.7 1.7 - 2.3 mg/dL 01/02/2024 6:36 PM HUMAN RESOURCE OFFICER [facility] Blood (Blood, Venous) 01/02/2024 5:44 PM HUMAN RESOURCE OFFICER 01/02/2024 5:50 PM HUMAN RESOURCE OFFICER Janiya Espinoza M.D. LAB BLOOD ADD-ON [facility] [address] [place] [address], [facility] [address] [place] [address] * (ABNORMAL) Comprehensive Metabolic Panel (01/02/2024 5:44 PM HUMAN RESOURCE OFFICER) Potassium, P 3.4(L) 3.6 - 5.2 mmol/L 01/02/2024 6:36 PM HUMAN RESOURCE OFFICER [facility] Sodium, P 135 135 - 145 mmol/L 01/02/2024 6:36 PM HUMAN RESOURCE OFFICER [facility] Chloride, P 100 98 - 107 mmol/L 01/02/2024 6:36 PM HUMAN RESOURCE OFFICER [facility] Bicarbonate, P 25 22 - 29 mmol/L 01/02/2024 6:36 PM HUMAN RESOURCE OFFICER [facility] Anion Gap, P 10 7 - 15 01/02/2024 6:36 PM HUMAN RESOURCE OFFICER [facility] BUN (Blood Urea Nitrogen), P 14 6 - 21 mg/dL 01/02/2024 6:36 PM HUMAN RESOURCE OFFICER [facility] Creatinine 0.72 0.59 - 1.04 mg/dL 01/02/2024 6:36 PM HUMAN RESOURCE OFFICER [facility] Estimated GFR (eGFR) >90 >=60 mL/min/BS A 01/02/2024 6:36 PM HUMAN RESOURCE OFFICER [facility] Comment: Estimated GFR calculated using the 2020 CKD_EPI creatinine equation. Calcium, Total, P 9.4 8.6 - 10.0 mg/dL 01/02/2024 6:36 PM HUMAN RESOURCE OFFICER [facility] Glucose, P 120 70 - 140 mg/dL 01/02/2024 6:36 PM HUMAN RESOURCE OFFICER [facility] Protein, Total, P 7.6 6.3 - 7.9 g/dL 01/02/2024 6:36 PM HUMAN RESOURCE OFFICER [facility] Albumin, P 4.6 3.5 - 5.0 g/dL 01/02/2024 6:36 PM HUMAN RESOURCE OFFICER [facility] Aspartate Aminotransferase (AST), P 23 8 - 43 U/L 01/02/2024 6:36 PM HUMAN RESOURCE OFFICER [facility] Alkaline Phosphatase, P 75 35 - 104 U/L 01/02/2024 6:36 PM HUMAN RESOURCE OFFICER [facility] Alanine Aminotransferase (ALT), P 23 7 - 45 U/L 01/02/2024 6:36 PM HUMAN RESOURCE OFFICER [facility] Bilirubin, Total, P 0.6 0.0 - 1.2 mg/dL 01/02/2024 6:36 PM HUMAN RESOURCE OFFICER [facility] Blood (Blood, Venous) 01/02/2024 5:44 PM HUMAN RESOURCE OFFICER 01/02/2024 5:50 PM HUMAN RESOURCE OFFICER Janiya Espinoza M.D. LAB BLOOD ADD-ON [facility] [address] [place] [address], [place] [facility] [address] [place] [address] from Last 3 Months Advance Directives For more information, please contact: [phone] Latest Code Status on File Code Status Date Activated Date Inactivated Comments Full Code 01/02/2024 4:27 PM Question Answer Comments Full Code: Not Discussed Due to: Patient not available Code Status History Code Status Date Activated Date Inactivated Comments Full Code 10/01/2022 1:33 PM 10/06/2022 3:53 PM Question Answer Comments Full Code: Not Discussed Due to: Not medically appropriate Care Teams Manager Of Patient Relationship Specialty Start Date End Date None Reported, Pcp PCP - General Family Medicine 09/30/22
== END 2024-01-02 14:26 | disposition home or self-care (01) ==
LOC: AMB 01-03 20:12
PROVIDERS: PCP Family Medicine; Visit Provider Family Medicine
DX: R45.851 Suicidal ideations (principal)
CPT/HCPCS: A0425; A0428

== ENCOUNTER 2024-05-04 09:15 | Outpatient (CLI) | payer MEDICARE, MEDICAID, SELFPAY ==
--- OUTSIDE RECORDS SUMMARY | 2024-05-16 11:08 | XMS_ITS | Referral Summary ---
Author Organization [facility] Address [address] [place] [address] Care Team Providers Care Surveillance Operator Name Role Phone No Ref-Primary, Physician Primary Care Provider Allergies Active Allergy Reactions Criticality Noted Date Comments Sulfa Antibiotics 01/09/2023 Medications Medication Sig Dispensed Refills Start Date End Date Status drospirenone-ethinyl estradiol (LETA) 3-0.03 MG tablet Take 1 tablet by mouth daily at 2 pm 12/28/2022 Active OLANZapine (ZYPREXA) 5 MG tablet Take 5 mg by mouth daily as needed Active Social History Tobacco Use Types Packs/Day [...] Comments Blood Pressure 102/59 01/10/2023 9:07 AM ELECTRICAL ACCESSORIES I ASSEMBLER Pulse 66 01/10/2023 9:07 AM ELECTRICAL ACCESSORIES I ASSEMBLER Temperature 36.7 ??C (98.1 ??F) 01/10/2023 9:07 AM CS T Respiratory Rate 18 01/10/2023 9:07 AM ELECTRICAL ACCESSORIES I ASSEMBLER Oxygen Saturation 98% 01/10/2023 9:07 AM ELECTRICAL ACCESSORIES I ASSEMBLER Inhaled Oxygen Concentration - - Weight 70.9 kg (156 lb 3.2 oz) 01/09/2023 10:10 PM ELECTRICAL ACCESSORIES I ASSEMBLER Height 160 cm (5' 3) 01/09/2023 10:10 PM ELECTRICAL ACCESSORIES I ASSEMBLER Body Mass Index 27.67 01/09/2023 10:10 PM ELECTRICAL ACCESSORIES I ASSEMBLER Plan of Treatment Not on file Care Teams Surveillance Operator Relationship Specialty Start Date End Date No Ref-Primary, Physician PCP - General 01/09/23
--- OUTSIDE RECORDS SUMMARY | 2024-05-16 11:08 | XMS_ITS | Clinical Summary ---
Author Organization [facility] Address [address] [place] [address] Care Team Providers Care Process Architect Name Role Phone No Ref-Primary, Physician Primary [...] Comments Blood Pressure 102/59 01/10/2023 9:07 AM BIOMETRICIAN Pulse 66 01/10/2023 9:07 AM BIOMETRICIAN Temperature 36.7 ??C (98.1 ??F) 01/10/2023 9:07 AM CS T Respiratory Rate 18 01/10/2023 9:07 AM BIOMETRICIAN Oxygen Saturation 98% 01/10/2023 9:07 AM BIOMETRICIAN Inhaled Oxygen Concentration - - Weight 70.9 kg (156 lb 3.2 oz) 01/09/2023 10:10 PM BIOMETRICIAN Height 160 cm (5' 3) 01/09/2023 10:10 PM BIOMETRICIAN Body Mass Index 27.67 01/09/2023 10:10 PM BIOMETRICIAN Plan of Treatment Health Maintenance Due Date Last Done Comments ADVANCE CARE PLANNING 1996 ANNUAL REVIEW OF HM ORDERS 1996 DEPRESSION ACTION PLAN 1996 PHQ-9 1996 YEARLY PREVENTIVE VISIT 1996 HIV SCREENING 2011 HEPATITIS C SCREENING 2014 PAP 2017 DTAP/TDAP/TD IMMUNIZATION (7 - Td or Tdap) 07/11/2018 07/11/2008, 02/08/2002, 03/03/1998, Additional history exists COVID-19 Vaccine ( season) 2023 INFLUENZA VACCINE (Season Ended) 2024 HEPATITIS B IMMUNIZATION Completed 998, 05/03/1997, 02/08/1997 [...] age to complete this topic Care Teams Process Architect Relationship Specialty Start Date End Date No Ref-Primary, Physician PCP - General 01/09/23
--- OUTSIDE RECORDS SUMMARY | 2024-05-16 11:09 | XMS_ITS ---
Author Organization [facility] Address [address] [place] [address] Care Team Providers Care Model And Mold Maker Name Role Phone Unavailable Unavailable Unavailable Surgery Details Not on file Complications Check Surgery Details section. Procedure Estimated Blood Loss Check Surgery Details section. Procedure Findings Check Surgery Details section. Procedure Specimens Taken Check Surgery Details section.
--- OUTSIDE RECORDS SUMMARY | 2024-05-16 11:09 | XMS_ITS | Clinical Summary ---
Author Organization [facility] Address [address] [place] [address] Care Team Providers Care Electoral Officer Name Role Phone None Reported, Pcp Primary Care Provider Unavail able Source Comments Patient records contain information from all sites at [facility]. For routine questions regarding patient records, call [phone] during business hours, M-F 8:00 AM - 5:00 PM Central Time. Record requests for emergency care only can be directed to [phone] at any time.[facility] Allergies Active Allergy Reactions Criticality Noted Date Comments Sulfa (Sulfonamide Antibiotics) Shortness of breath (Reselect Reaction) 03/20/2018 Medications Medication Sig Dispensed Refills Start Date End Date Status cariprazine (VRAYLAR) 4.5 mg capsule Take 4.5 mg by mouth daily. Active doxazosin (CARDURA) 1 mg tablet Take 0.5 mg by mouth 2 (two) times a day. Active levothyroxine (SYNTHROID, LEVOTHROID) 50 mcg tablet Take 50 mcg by mouth every morning before breakfast. Active lisdexamfetamine (VYVANSE) 10 mg capsule Take 1 capsule (10 mg total) by mouth daily. 01/07/2024 Active lamoTRIgine (LaMICtaL) 25 mg tablet Take 1 tablet (25 mg total) by mouth daily. 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 Social History Tobacco Use Types Packs/Day Years Used Date Smoking Tobacco: Former Cigarettes Smokeless Tobacco: Never Tobacco Cessation:Counseling Given: Not Answered Alcohol Use Standard Drinks/Week Comments Yes 10 (1 standard drink = 0.6 oz pu re alcohol) [facility] Utilities Answer Date Recorded In the past 12 months has th e [employer], gas, oil, or water company threatened to shut off services in your [...] 01/03/2024 PHQ-2 Answer Date Recorded PHQ-2 Score 0 01/06/2024 Hunger Vital Sign Answer Date Recorded Within [...] Recor ded PHQ-9 Total Score (max 27) 4 01/06 Nutrition Answer Date Recorded Nutrition: EVOO Fat Source Unknown 01/26 Nutrition: Servings of Fruits/Vegetables per Day Not on file 01/26/2021 Dental Answer Date Recorded Dental: Regular Dentist Unknown 01/28/20 21 Housing Stability Answer Date Recorded What is your living situation today? I have a [facility] place to live 01/03/2024 Sex and Gender Information Value Date Recorded Sex Assigned at Not on file Gender Identity Not on file Sexual Orientation Not on file Last Filed Vital Signs Vital Sign Reading Time Taken Comments Blood Pressure 120/73 01/06/2024 7:16 AM VICE PRESIDENT NETWORK Pulse 87 01/06/2024 7:16 AM VICE PRESIDENT NETWORK Temperature 36.4 ??C (97.5 ??F) 01/06/2024 7:16 AM CS T Respiratory Rate 17 01/06/2024 7:16 AM VICE PRESIDENT NETWORK Oxygen Saturation 98% 01/06/2024 7:16 AM VICE PRESIDENT NETWORK Inhaled Oxygen Concentration - - Weight 72.6 kg (159 lb 15.8 oz) 01/02/2024 3:57 PM VICE PRESIDENT NETWORK Height 170 cm (5' 6.93) 01/02/2024 3:57 PM VICE PRESIDENT NETWORK Body Mass Index 25.11 01/02/2024 3:57 PM VICE PRESIDENT NETWORK Plan of Treatment Health Maintenance Due Date Last Done Comments HIV Screening 1996 Hepatitis C Screening 1996 Tobacco Cessation counseling 1996 Hepatitis B Vaccines (1 of 3 - 19+ 3-dose series) 2015 DTaP,Tdap,and Td Vaccines (7 - Td or Tdap) 07/11/2018 07/11/2008, 02/08/2002, 03/03/1998, Additional history exists COVID-19 Vaccine (2022- season) 2023 Influenza Vaccine (#1) 2023 Depression Screening (Annual PHQ-2) 11/21/2023 Glucose Test for Med Monitoring 01/02/2025 01/02/2024, 10/01/2022, 09/30/2022, Additional history exists Thyroid Stimulating Hormone (TSH) test for thyroid function 01/02/2025 01/02/2024, 09/30/2022, 03/19/2022 Cervical Cancer Screening 06/01/2025 06/01/2022 HPV Vaccines Aged Out No longer eligi ble based on patient's age to complete this topic Pneumococcal vaccine (0-64 years) Aged Out No longer eligible based on patient's age to complete this topic Procedures Procedure Name Priority Date/Time Associated Diagnosis Comments COMPREHENSIVE METABOLIC PANEL, S/P Routine 01/02/2024 5:44 PM VICE PRESIDENT NETWORK THYROID-STIMULATING HORMONE-SENSITIVE (S-TSH) Routine 01/02/2024 5:44 PM VICE PRESIDENT NETWORK from Last 3 Months or Most Recently Relevant to Health Maintenance Results * (ABNORMAL) S-TSH (Thyroid-Stimulating Hormone - Sensitive) (01/02/2024 5:44 PM VICE PRESIDENT NETWORK) TSH, Sensitive 5.0(H) 0.3 - 4.2 mIU/L 01/02/2024 6:36 PM VICE PRESIDENT NETWORK [facility] Blood (Blood, Venous) 01/02/2024 5:44 PM VICE PRESIDENT NETWORK 01/02/2024 5:50 PM VICE PRESIDENT NETWORK Janiya Espinoza M.D. LAB BLOOD ADD-ON [facility] [address] [place] [address], [facility] [place] [address] * (ABNORMAL) Comprehensive Metabolic Panel (01/02/2024 5:44 PM VICE PRESIDENT NETWORK) Potassium, P 3.4(L) 3.6 - 5.2 mmol/L 01/02/2024 6:36 PM VICE PRESIDENT NETWORK [facility] Sodium, P 135 135 - 145 mmol/L 01/02/2024 6:36 PM VICE PRESIDENT NETWORK [facility] Chloride, P 100 98 - 107 mmol/L 01/02/2024 6:36 PM VICE PRESIDENT NETWORK [facility] Bicarbonate, P 25 22 - 29 mmol/L 01/02/2024 6:36 PM VICE PRESIDENT NETWORK [facility] Anion Gap, P 10 7 - 15 01/02/2024 6:36 PM VICE PRESIDENT NETWORK [facility] BUN (Blood Urea Nitrogen), P 14 6 - 21 mg/dL 01/02/2024 6:36 PM VICE PRESIDENT NETWORK [facility] Creatinine 0.72 0.59 - 1.04 mg/dL 01/02/2024 6:36 PM VICE PRESIDENT NETWORK [facility] Estimated GFR (eGFR) >90 >=60 mL/min/BS A 01/02/2024 6:36 PM VICE PRESIDENT NETWORK [facility] Comment: Estimated GFR calculated using the 2020 CKD_EPI creatinine equation. Calcium, Total, P 9.4 8.6 - 10.0 mg/dL 01/02/2024 6:36 PM VICE PRESIDENT NETWORK [facility] Glucose, P 120 70 - 140 mg/dL 01/02/2024 6:36 PM VICE PRESIDENT NETWORK [facility] Protein, Total, P 7.6 6.3 - 7.9 g/dL 01/02/2024 6:36 PM VICE PRESIDENT NETWORK [facility] Albumin, P 4.6 3.5 - 5.0 g/dL 01/02/2024 6:36 PM VICE PRESIDENT NETWORK [facility] Aspartate Aminotransferase (AST), P 23 8 - 43 U/L 01/02/2024 6:36 PM VICE PRESIDENT NETWORK [facility] Alkaline Phosphatase, P 75 35 - 104 U/L 01/02/2024 6:36 PM VICE PRESIDENT NETWORK [facility] Alanine Aminotransferase (ALT), P 23 7 - 45 U/L 01/02/2024 6:36 PM VICE PRESIDENT NETWORK [facility] Bilirubin, Total, P 0.6 0.0 - 1.2 mg/dL 01/02/2024 6:36 PM VICE PRESIDENT NETWORK [facility] Blood (Blood, Venous) 01/02/2024 5:44 PM VICE PRESIDENT NETWORK 01/02/2024 5:50 PM VICE PRESIDENT NETWORK Janiya Espinoza M.D. LAB BLOOD ADD-ON [facility] [place] [address], [facility] MKTO [facility] [place] [address] [place] [address] from Last 3 Months or Most Recently Relevant to Health Maintenance Advance Directives For more information, please contact: [phone] * Full Code (Latest Code Status on File) Date Activated Date Inactivated Comments 01/02/2024 4:27 PM 01/06/2024 5:29 PM Question Answer Comments Full Code: Not Discussed Due to: Patient not available * Full Code Date Activated Date Inactivated Comments 10/01/2022 1:33 PM 10/06/2022 3:53 PM Question Answer Comments Full Code: Not Discussed Due to: Not medically appropriate Care Teams Electoral Officer Relationship Specialty Start Date End Date None Reported, Pcp PCP - General Family Medicine 09/30/22
--- OUTSIDE RECORDS SUMMARY | 2024-05-16 11:09 | XMS_ITS | Referral Summary ---
Author Organization [facility] Address [address] [place] [address] Care Team Providers Care Senior Clinical Sas Programmer Name Role Phone None Reported, Pcp Primary Care Provider Unavail able Source Comments Patient records contain information from all sites at [facility]. For routine questions regarding patient records, call [phone] during business hours, M-F 8:00 AM - 5:00 PM Central Time. Record requests for emergency care only can be directed to [phone] at any time.[facility] Allergies Active Allergy Reactions Criticality Noted Date [...] drink = 0.6 oz pu re alcohol) [facility] Utilities Answer Date Recorded In the past 12 months has th e [employer], gas, oil, or water company threatened to [...] your living situation today? I have a [facility] place to live 01/03/2024 Sex and Gender Information Value Date Recorded Sex Assigned at Not on file Gender Identity Not on file Sexual Orientation Not on file Last Filed Vital Signs Vital Sign Reading Time Taken Comments Blood Pressure 120/73 01/06/2024 7:16 AM PARKS AND RECREATION MANAGER Pulse 87 01/06/2024 7:16 AM PARKS AND RECREATION MANAGER Temperature 36.4 ??C (97.5 ??F) 01/06/2024 7:16 AM CS T Respiratory Rate 17 01/06/2024 7:16 AM PARKS AND RECREATION MANAGER Oxygen Saturation 98% 01/06/2024 7:16 AM PARKS AND RECREATION MANAGER Inhaled Oxygen Concentration - - Weight 72.6 kg (159 lb 15.8 oz) 01/02/2024 3:57 PM PARKS AND RECREATION MANAGER Height 170 cm (5' 6.93) 01/02/2024 3:57 PM PARKS AND RECREATION MANAGER Body Mass Index 25.11 01/02/2024 3:57 PM PARKS AND RECREATION MANAGER Plan of Treatment Not on file Procedures Procedure Name Priority Date/Time Associated Diagnosis Comments COMPREHENSIVE METABOLIC PANEL, S/P Routine 01/02/2024 5:44 PM PARKS AND RECREATION MANAGER THYROID-STIMULATING HORMONE-SENSITIVE (S-TSH) Routine 01/02/2024 5:44 PM PARKS AND RECREATION MANAGER from Last 3 Months or Most Recently Relevant to Health Maintenance Results * (ABNORMAL) S-TSH (Thyroid-Stimulating Hormone - Sensitive) (01/02/2024 5:44 PM PARKS AND RECREATION MANAGER) Pathologist [facility] TSH, Sensitive 5.0(H) 0.3 - 4.2 mIU/L 01/02/2024 6:36 PM PARKS AND RECREATION MANAGER [facility] Blood (Blood, Venous) 01/02/2024 5:44 PM PARKS AND RECREATION MANAGER 01/02/2024 5:50 PM PARKS AND RECREATION MANAGER Janiya Espinoza M.D. LAB BLOOD ADD-ON [facility] [address] [place] [address], [facility] [place] [address] [place] [address] * (ABNORMAL) Comprehensive Metabolic Panel (01/02/2024 5:44 PM PARKS AND RECREATION MANAGER) Pathologist [facility] Potassium, P 3.4(L) 3.6 - 5.2 mmol/L 01/02/2024 6:36 PM PARKS AND RECREATION MANAGER [facility] Sodium, P 135 135 - 145 mmol/L 01/02/2024 6:36 PM PARKS AND RECREATION MANAGER [facility] Chloride, P 100 98 - 107 mmol/L 01/02/2024 6:36 PM PARKS AND RECREATION MANAGER [facility] Bicarbonate, P 25 22 - 29 mmol/L 01/02/2024 6:36 PM PARKS AND RECREATION MANAGER [facility] Anion Gap, P 10 7 - 15 01/02/2024 6:36 PM PARKS AND RECREATION MANAGER [facility] BUN (Blood Urea Nitrogen), P 14 6 - 21 mg/dL 01/02/2024 6:36 PM PARKS AND RECREATION MANAGER [facility] Creatinine 0.72 0.59 - 1.04 mg/dL 01/02/2024 6:36 PM PARKS AND RECREATION MANAGER [facility] Estimated GFR (eGFR) >90 >=60 mL/min/BS A 01/02/2024 6:36 PM PARKS AND RECREATION MANAGER [facility] Comment: Estimated GFR calculated using the 2020 CKD_EPI creatinine equation. Calcium, Total, P 9.4 8.6 - 10.0 mg/dL 01/02/2024 6:36 PM PARKS AND RECREATION MANAGER [facility] Glucose, P 120 70 - 140 mg/dL 01/02/2024 6:36 PM PARKS AND RECREATION MANAGER [facility] Protein, Total, P 7.6 6.3 - 7.9 g/dL 01/02/2024 6:36 PM PARKS AND RECREATION MANAGER [facility] Albumin, P 4.6 3.5 - 5.0 g/dL 01/02/2024 6:36 PM PARKS AND RECREATION MANAGER [facility] Aspartate Aminotransferase (AST), P 23 8 - 43 U/L 01/02/2024 6:36 PM PARKS AND RECREATION MANAGER [facility] Alkaline Phosphatase, P 75 35 - 104 U/L 01/02/2024 6:36 PM PARKS AND RECREATION MANAGER [facility] Alanine Aminotransferase (ALT), P 23 7 - 45 U/L 01/02/2024 6:36 PM PARKS AND RECREATION MANAGER [facility] Bilirubin, Total, P 0.6 0.0 - 1.2 mg/dL 01/02/2024 6:36 PM PARKS AND RECREATION MANAGER [facility] Blood (Blood, Venous) 01/02/2024 5:44 PM PARKS AND RECREATION MANAGER 01/02/2024 5:50 PM PARKS AND RECREATION MANAGER Janiya Espinoza M.D. LAB BLOOD ADD-ON [facility] [address] [place] [address], [place] [facility] [place] [address] [place] [address] from Last 3 Months or Most Recently Relevant to Health Maintenance Advance Directives For more information, please contact: [phone] * Full Code (Latest Code Status on File) Date Activated Date Inactivated Comments 01/02/2024 4:27 PM 01/06/2024 5:29 PM Question Answer Comments Full Code: Not Discussed Due to: Patient not available * Full Code Date Activated Date Inactivated Comments 10/01/2022 1:33 PM 10/06/2022 3:53 PM Question Answer Comments Full Code: Not Discussed Due to: Not medically appropriate Care Teams Senior Clinical Sas Programmer Relationship Specialty Start Date End Date None Reported, Pcp PCP - General Family Medicine 09/30/22
--- OUTSIDE RECORDS SUMMARY | 2024-05-16 11:09 | XMS_ITS | Clinical Summary ---
Author Organization [facility] Address [place], [place] [address] Care Team Providers Care Home Organizer Name Role Phone Pcp, No Primary Care Provider Unavailabl e Allergies Active Allergy Reactions Criticality Noted Date Comments Lactose GI Upset,Other - Describe In Comment Field 07/10/2021 Acne breakout Sulfa (Sulfonamide Antibiotics) Dyspnea 05/23/2008 Medications Medication Sig Dispensed Refills Start Date End Date Status Vyvanse 10 mg capsule Take 10 mg by mouth once daily. 08/16/2022 Active OLANzapine (ZYPREXA) 2.5 mg tablet TAKE 1 TABLET BY MOUTH EVERY DAY NEEDED FOR AGITATION OR ANXIETY. 07/08/2022 Active OLANzapine (ZYPREXA) 5 mg tablet TAKE 1 TABLET BY MOUTH EVERY DAY NEEDED FOR AGITATION OR ANXIETY 09/28/2022 Active spironolactone (ALDACTONE) 25 mg tablet Take 25 mg by mouth once daily. 08/21/2022 Active drospirenone-ethinyl estradioL (LETA) 3-0.03 mg tabletIndications:Enc ounter for counseling regarding contraception Take 1 Tablet by mouth once daily. 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 Encounters Date Type Department Care Team Description 04/11/2024 Telephone [facility] [address] [place] [address] Christen Aldana Appointment Reminder 04/06/2024 Telephone [facility] [address] [place] [address] Pcp, No ASSESSMENT (PHP OR DT) from Last 3 Months Immunizations Name Administration Dates Next Due DTaP [...] Comments Blood Pressure 102/64 10/11/2022 11:36 AM FLAKE CUTTER OPERATOR Pulse 79 10/11/2022 11:36 AM FLAKE CUTTER OPERATOR Temperature 36.7 ??C (98 ??F) 10/11/2022 11:36 AM FLAKE CUTTER OPERATOR Respiratory Rate 14 05/25/2022 3:48 PM CDT Oxygen Saturation 99% 10/11/2022 11:36 AM FLAKE CUTTER OPERATOR Inhaled Oxygen Concentration - - Weight 67.3 kg (148 lb 6.4 oz) 10/11/2022 11:36 AM FLAKE CUTTER OPERATOR Height 160.7 cm (5' 3.27) 10/11/2022 11:[address] Body Mass Index 26.07 10/11/2022 11:36 AM FLAKE CUTTER OPERATOR Plan of Treatment Health Maintenance Due Date Last Done Comments Tetanus booster 07/11/2018 07/11/2008 COVID-19 vaccine series (2022- season) 2023 BMI (ht and wt on same day) for age 18+ 10/11/2023 10/11/2022, 07/10/2021, 02/12/2017, Additional history exists Depression screening for age 12+ 10/11/2023 10/11/2022, 03/26/2016 Influenza for age 9-49 07/22/2024 Pap test for age 21-65 06/01/2025 06/01/2022 Tdap Completed 07/11/2008 HIV for age 15-65 Completed 02/12/2017 Hepatitis C screening for age 18-79 Completed 02/12/2017 Pneumococcal series for age 6-64 Aged Out No longer eligible based on patient's age to complete this topic Procedures Procedure Name Priority Date/Time Associated Diagnosis Comments REFERENCE INVESTIGATOR THIN PREP PAP SCREEN IMAGED Routine 06/01/2022 10:39 AM CDT ANTI HIV 1/2 Routine 02/12/2017 12:54 PM CDT Screening for STD (sexually transmitted disease) ANTI HCV Routine 02/12/2017 12:54 PM CDT Screening for STD (sexually transmitted disease) from Last 3 Months or Most Recently Relevant to Health Maintenance Results * REFERENCE INVESTIGATOR THIN PREP PAP SCREEN IMAGED (06/01/2022 10:39 AM CDT) Case Report Gynecologic Cytology Report ? Case: [id number] ? Authorizing Provider: ??Unknown, Doctor ?Collected: ? 06/01/2022 1039 ? Ordering Location: ? [facility] ?Received: ?06/02/2022 1248 ? First Screen: ?Jasper Figueroa ? Specimen: ?REFERENCE INVESTIGATOR ThinPrep Vial Screening, Cervical ? 06/16/2022 11:15 AM CDT [facility]-C ENTRAL LABORATORY INTERPRETATION/ RESULT NEGATIVE FOR INTRAEPITHELIAL LESION OR MALIGNANCY (NIL) (none) 06/16/2022 11:15 AM CDT [facility] LABORAT[facility]-C ENTRAL LABORATORY IMEN ADEQUACY Satisfactory for evaluation Endocervical component present Scant cellularity 06/16/2022 11:15 AM CDT [facility] ENTRAL LABORATORY HPV REQUEST HPV if ASCUS 06/16/2022 11:15 AM CDT [facility]-C ENTRAL LABORATORY Date of LMP 03/20/2022 06/16/2022 11:15 AM CDT [facility] LABORATORY-C ENTRAL LABORATORY Last Pap Result First Pap/Unknown 11:15 AM CDT [facility]-C ENTRAL LABORATORY Abnormal Pap or [place] Bx in last 5 years No 06/16/2022 11:15 AM CDT [facility] ENTRCT LABORATORY Menstrual Status 06/16/2022 11:15 AM CDT [facility] ENTR[facility] Additional Information 06/16/2022 11:15 AM CDT [facility] EN[facility] Comment: Interpreted at [facility] - [address], [place] [address] Automated Review Successful 06/16/2022 11:15 AM CDT [facility] ENTRCT LABORATORY Comment:Specimen processed s uccessfully by automated new grad rn device, ThinPrep Imaging System, [employer] Note The pap test is a screening technique, not a diagnostic procedure. It is used primarily to screen for squamous cancers and precursor lesions. Published studies have shown that it is subject to both false negative and false positive results. The pap test should not be used as the sole means to diagnose or exclude pre-malignant and malignant lesions. 06/16/2022 11:15 AM CDT [facility] ENTRCT LABORATORY Other (Cervical) 06/01/2022 10:39 AM CDT 06/02/2022 12:48 PM CDT Doctor Unknown PATHOLOGY/CYTOLOGY [facility] [address] [place] [address], [place] * ANTI HCV (02/12/2017 12:54 PM CDT) HEPATITIS C ANTIBODY Non-Reacti ve Non-Reacti ve 02/15/2017 8:46 PM CDT [facility] TRAL LABORATORY Blood BLOOD SPECIMEN / Unknown Venipuncture / Unknown 02/12/2017 12:54 PM CDT 02/12/2017 12:55 PM CDT Narrative [facility] - 02/15/2017 8:46 PM CDT Antibodies to HCV not detected; does not exclude the possibility of exposure to HCV. Lucila Sanchez MD SEND OUTS [facility] [address] [place] [address], [place] * ANTI HIV 1/2 (02/12/2017 12:54 PM CDT) HIV-1/HIV-2 ANTIBODY Non-Reacti ve Non-Reacti ve 02/15/2017 8:44 PM CDT [facility] LABOR[facility] TRAL LABORATORY Blood BLOOD SPECIMEN / Unknown Venipuncture / Unknown 02/12/2017 12:54 PM CDT 02/12/2017 12:55 PM CDT Narrative [facility] LABORATORY-CENTRAL LABORATORY - 02/15/2017 8:44 PM CDT HIV-1 p24 and HIV-1/HIV-2 Ab not detected Lucila Sanchez MD SEND OUTS [facility]-CENTRAL LABORATORY [address] [place] [address], [place] from Last 3 Months or Most Recently Relevant to Health Maintenance Care Teams Home Organizer Relationship Specialty Start Date End Date Pcp, No . PCP - General 12/17/14
--- OUTSIDE RECORDS SUMMARY | 2024-05-16 11:09 | XMS_ITS | Encounter Summary ---
Author Organization [facility] Address [address] [place] [address] Care Team Providers Care Waiter/Waitress Cafeteria Name Role Phone None Reported, Pcp Primary Care Provider Unavail able Encounter Details Date Type Department Care Team (Latest Contact Info) Description 01/02/2024 Intake [facility] Social History Tobacco Use Types Packs/Day Years Used Date Smoking Tobacco: Former Cigarettes Smokeless Tobacco: Never Alcohol Use Standard Drinks/Week Comments Yes 10 (1 standard drink = 0.6 oz pu re alcohol) [facility] Utilities Answer Date Recorded In the past 12 months has [facility] [employer], gas, oil, or water [employer] threatened to shut off services in your [...] your living situation today? I have a [facility] place to live 01/03/2024 Sex and Gender Information Value Date Recorded Sex Assigned at Not on file Gender Identity Not on file Sexual Orientation Not on file documented as of this encounter Last Filed Vital Signs Vital Sign Reading Time Taken Comments Blood Pressure 126/86 01/02/2024 6:22 AM JANITOR CLEANER Pulse 108 01/02/2024 6:22 AM JANITOR CLEANER Temperature - - Respiratory Rate 18 01/02/2024 6:22 AM JANITOR CLEANER Oxygen Saturation 98% 01/02/2024 6:22 AM JANITOR CLEANER Inhaled Oxygen Concentration - - Weight - - Height - - Body Mass Index - - documented in this encounter Plan of Treatment Not on file documented as of this encounter Visit Diagnoses Not on filedocumented in this encounter Additional Health Concerns Assessment Noted Time PHQ-9 Depression Total Score: 9 01/02/20 24 6:48 PM JANITOR CLEANER documented as of this encounter Care Teams Waiter/Waitress Cafeteria Relationship Specialty Start Date End Date None Reported, Pcp PCP - General Family Medicine 09/30/22 documented as of this encounter
== END 2024-05-04 09:16 | disposition home or self-care (01) ==
LOC: NFLDREF 05-16 11:07
PROVIDERS: PCP Family Medicine; Referring Provider Family Medicine; Visit Provider Obstetrics & Gynecology
DX: Z31.41 Encounter for fertility testing (principal); E03.9 Hypothyroidism, unspecified; R53.83 Other fatigue; E66.3 Overweight
CPT/HCPCS: 82670; 83001; 83002; 83498; 83520; 84146; 84270; 84402; 84403; 84439; 84443

== ENCOUNTER 2024-09-18 08:57 | Outpatient (CLI) | payer MEDICARE, MEDICAID, SELFPAY ==
--- OUTSIDE RECORDS SUMMARY | 2024-09-18 09:03 | XMS_ITS | Referral Summary ---
Author Organization [facility] Address [address] [place] [address] Care Team Providers Care Billet Heater Operator Name Role Phone No Ref-Primary, Physician Primary Care Provider Allergies Active Allergy Reactions Criticality Noted Date Comments Sulfa Antibiotics 01/09/2023 Medications drospirenone-eth inyl estradiol (LETA) 3-0.03 MG tablet Take 1 tablet by mouth daily at 2 pm 12/28/2022 Active OLANZapine (ZYPREXA) 5 MG tablet Take 5 mg by mouth daily as needed Active Social History Tobacco Use Types Packs/Day Years Used Date Smoking Tobacco: Never Assessed Adolescent Education Answer Date Record ed Getting School Help Needed Not on file 08/13 Comments Unknown Sex and Gender Information Value Date Recorded Sex Assigned at Not on file Legal Sex Female 5:58 PM ARCHITECTURE TECHNICIAN Gender Identity Not on file Sexual Orientation Not on file Last Filed Vital Signs Vital Sign Reading Time Taken Comments Blood Pressure 102/59 01/10/2023 9:07 AM ARCHITECTURE TECHNICIAN Pulse 66 01/10/2023 9:07 AM ARCHITECTURE TECHNICIAN Temperature 36.7 ??C (98.1 ??F) 01/10/2023 9:07 AM CS T Respiratory Rate 18 01/10/2023 9:07 AM ARCHITECTURE TECHNICIAN Oxygen Saturation 98% 01/10/2023 9:07 AM ARCHITECTURE TECHNICIAN Inhaled Oxygen Concentration - - Weight 70.9 kg (156 lb 3.2 oz) 01/09/2023 10:10 PM ARCHITECTURE TECHNICIAN Height 160 cm (5' 3) 01/09/2023 10:10 PM ARCHITECTURE TECHNICIAN Body Mass Index 27.67 01/09/2023 10:10 PM ARCHITECTURE TECHNICIAN Plan of Treatment Not on file Insurance [facility] Care Teams Billet Heater Operator Relationship Specialty Start Date End Date No Ref-Primary, Physician PCP - General 01/09/23
--- OUTSIDE RECORDS SUMMARY | 2024-09-18 09:03 | XMS_ITS | Clinical Summary ---
Author Organization [facility] Address [address] [place] [address] Care Team Providers Care Health Plan Advisor Name Role Phone No Ref-Primary, Physician Primary [...] on file Legal Sex Female 5:58 PM TOBACCO STRIPPING MACHINE OPERATOR Gender Identity Not on file Sexual Orientation Not on file Last Filed Vital Signs Vital Sign Reading Time Taken Comments Blood Pressure 102/59 01/10/2023 9:07 AM TOBACCO STRIPPING MACHINE OPERATOR Pulse 66 01/10/2023 9:07 AM TOBACCO STRIPPING MACHINE OPERATOR Temperature 36.7 ??C (98.1 ??F) 01/10/2023 9:07 AM CS T Respiratory Rate 18 01/10/2023 9:07 AM TOBACCO STRIPPING MACHINE OPERATOR Oxygen Saturation 98% 01/10/2023 9:07 AM TOBACCO STRIPPING MACHINE OPERATOR Inhaled Oxygen Concentration - - Weight 70.9 kg (156 lb 3.2 oz) 01/09/2023 10:10 PM TOBACCO STRIPPING MACHINE OPERATOR Height 160 cm (5' 3) 01/09/2023 10:10 PM TOBACCO STRIPPING MACHINE OPERATOR Body Mass Index 27.67 01/09/2023 10:10 PM TOBACCO STRIPPING MACHINE OPERATOR Plan of Treatment Health Maintenance Due Date Last Done Comments ADVANCE CARE PLANNING 1996 ANNUAL REVIEW OF HM ORDERS 1996 DEPRESSION ACTION PLAN 1996 PHQ-9 1996 YEARLY PREVENTIVE VISIT 1996 HIV SCREENING 2011 HEPATITIS C SCREENING 2014 PAP 2017 DTAP/TDAP/TD IMMUNIZATION (7 - Td or Tdap) 07/11/2018 07/11/2008, 02/08/2002, 03/03/1998, Additional history exists COVID-19 Vaccine (2023- season) 2024 INFLUENZA VACCINE (#1) 2024 RSV VACCINE (1 - 1-dose 75+ series) 2071 HEPATITIS B IMMUNIZATION Completed 998, 05/03/1997, 02/08/1997 MENINGITIS IMMUNIZATION Aged Out 07/11/2008 No l [...] on patient's age to complete this topic Insurance [facility] [place] [address] Care Teams Health Plan Advisor Relationship Specialty Start Date End Date No Ref-Primary, Physician PCP - General 01/09/23
--- OUTSIDE RECORDS SUMMARY | 2024-09-18 09:04 | XMS_ITS | Clinical Summary ---
Author Organization [employer] [facility] Address [place], [place] [address] Care Team Providers Care Utility Aircrewman Name Role Phone Pcp, No Primary Care [...] Comments Blood Pressure 102/64 10/11/2022 11:36 AM POWER AND RECOVERY SHIFT ENGINEER Pulse 79 10/11/2022 11:36 AM POWER AND RECOVERY SHIFT ENGINEER Temperature 36.7 ??C (98 ??F) 10/11/2022 11:36 AM POWER AND RECOVERY SHIFT ENGINEER Respiratory Rate 14 05/25/2022 3:48 PM CDT Oxygen Saturation 99% 10/11/2022 11:36 AM POWER AND RECOVERY SHIFT ENGINEER Inhaled Oxygen Concentration - - Weight 67.3 kg (148 lb 6.4 oz) 10/11/2022 11:36 AM POWER AND RECOVERY SHIFT ENGINEER Height 160.7 cm (5' 3.27) 10/11/2022 11:[address] Body Mass Index 26.07 10/11/2022 11:36 AM POWER AND RECOVERY SHIFT ENGINEER Plan of Treatment Health Maintenance Due Date Last Done Comments Tetanus booster 07/11/2018 07/11/2008 BMI (ht and wt on same day) for age 18+ 10/11/2023 10/11/2022, 07/10/2021, 02/12/2017, Additional history exists Depression screening for age 12+ 10/11/2023 10/11/2022, 03/26/2016 COVID-19 vaccine series ( - 2023- season) 2024 Influenza for age 9-49 07/22/2024 Pap test for age 21-65 06/01/2025 06/01/2022 Tdap Completed 07/11/2008 HIV for age 15-65 Completed 02/12/2017 Hepatitis C screening for age 18-79 Completed 02/12/2017 Pneumococcal series for age 6-64 Aged Out No longer eligible based on patient's age to complete this topic Procedures Procedure Name Priority Date/Time Associated Diagnosis Comments VEGETABLE VENDOR THIN PREP PAP SCREEN IMAGED Routine 06/01/2022 10:39 AM CDT ANTI HIV 1/2 Routine 02/12/2017 12:54 PM CDT Screening for STD (sexually transmitted disease) ANTI HCV Routine 02/12/2017 12:54 PM CDT Screening for STD (sexually transmitted disease) from Last 3 Months or Most Recently Relevant to Health Maintenance Results * VEGETABLE VENDOR THIN PREP PAP SCREEN IMAGED (06/01/2022 10:39 AM CDT) Case Report Gynecologic Cytology Report ? Case: [id number] ? Authorizing Provider: ??Unknown, Doctor ?Collected: ? 06/01/2022 1039 ? Ordering Location: ? [facility] ?Received: ?06/02/2022 1248 ? First Screen: ?Jasper Figueroa ? Specimen: ?VEGETABLE VENDOR ThinPrep Vial Screening, Cervical ? 06/16/2022 11:15 AM CDT [facility] [email or web address] [facility]- ENTRAL LABORATORY INTERPRETATION/ RESULT NEGATIVE FOR INTRAEPITHELIAL LESION OR MALIGNANCY (NIL) (none) 06/16/2022 11:15 AM CDT [facility] ENTRAL LABORATORY IMEN ADEQUACY Satisfactory for evaluation Endocervical component present Scant cellularity 06/16/2022 11:15 AM CDT [facility] ENTRAL LABORATORY HPV REQUEST HPV if ASCUS 06/16/2022 11:15 AM T [facility]-C ENTRAL LABORATORY Date of LMP 03/20/2022 06/16/2022 11:15 AM CDT [facility] LABORAT[facility]-C ENTRAL LABORATORY Last Pap Result First Pap/Unknown 11:15 AM CDT [facility] LAB[facility]-C ENTRAL LABORATORY Abnormal Pap or [place] Bx in last 5 years No 06/16/2022 11:15 AM CDT [facility]-C ENTRAL LABORATORY Menstrual Status 06/16/2022 11:15 AM CDT [facility]-C ENTRAL LABORATORY Additional Information 06/16/2022 11:15 AM T [facility] ENTRAL LABORATORY Comment: Interpreted at [facility] - [address], [place] [address] Automated Review Successful 06/16/2022 11:15 AM CDT [facility] ENTRAL LABORATORY Comment:Specimen processed s uccessfully by automated breast splitter device, RevertPrep Imaging System, [employer] Note The pap test is a [...] and malignant lesions. 06/16/2022 11:15 AM CDT [facility] ENTRAL LABORATORY Other (Cervical) 06/01/2022 10:39 AM CDT 06/02/2022 12:48 PM CDT Doctor Unknown PATHOLOGY/CYTOLOGY [facility] [address] [place] [address], [place] * ANTI HCV (02/12/2017 12:54 PM CDT) HEPATITIS C ANTIBODY Non-Reacti ve Non-Reacti ve 02/15/2017 8:46 PM CDT [facility] TRAL LABORATORY Blood BLOOD SPECIMEN / Unknown Venipuncture / Unknown 02/12/2017 12:54 PM CDT 02/12/2017 12:55 PM CDT Narrative [facility] LAB[facility] - 02/15/2017 8:46 PM CDT Antibodies to HCV not detected; does not exclude the possibility of exposure to HCV. Lucila Sanchez MD SEND OUTS [facility] [address] [place] [address], [place] * ANTI HIV 1/2 (02/12/2017 12:54 PM CDT) HIV-1/HIV-2 ANTIBODY Non-Reacti ve Non-Reacti ve 02/15/2017 8:44 PM CDT [facility] TRAL LABORATORY Blood BLOOD SPECIMEN / Unknown Venipuncture / Unknown 02/12/2017 12:54 PM CDT 02/12/2017 12:55 PM CDT Narrative [facility] LAB[facility]-CENTRAL LABORATORY - 02/15/2017 8:44 PM CDT HIV-1 p24 and HIV-1/HIV-2 Ab not detected Lucila Sanchez MD SEND OUTS [facility]-CENTRAL LABORATORY [address] [place] [address], from Last 3 Months or Most Recently Relevant to Health Maintenance Care Teams Utility Aircrewman Relationship Specialty Start Date End Date Pcp, No . PCP - General 12/17/14
--- OUTSIDE RECORDS SUMMARY | 2024-09-18 09:04 | XMS_ITS ---
Author Organization [facility] Address [address] [place] [address] Care Team Providers Care Supercharger Repair Supervisor Name Role Phone Unavailable Unavailable Unavailable Surgery Details Not on file Complications Check Surgery Details section. Procedure Estimated Blood Loss Check Surgery Details section. Procedure Findings Check Surgery Details section. Procedure Specimens Taken Check Surgery Details section.
--- OUTSIDE RECORDS SUMMARY | 2024-09-18 09:04 | XMS_ITS | Encounter Summary ---
Author Organization [facility] Address [address] [place] [address] Care Team Providers Care Cut Off Sawyer [employer]ingle Mill Name Role Phone None Reported, Pcp Primary Care Provider Unavail able Encounter Details Date Type Department Care Team (Latest Contact Info) Description 01/02/2024 Intake [facility] Social History Tobacco Use Types Packs/Day Years Used Date Smoking Tobacco: Former Cigarettes Smokeless Tobacco: Never Alcohol Use Standard Drinks/Week Comments Yes 10 (1 standard drink = 0.6 oz pu re alcohol) [facility] Utilities Answer Date Recorded In the past 12 months has [facility] [employer], gas, oil, or water [employer] threatened to shut off services in your [...] Answer Date Recorded Nutrition: EVOO Fat Source 13 06/17 Nutrition: Servings of Fruits/Vegetables per Day Not on file 06/17/2020 Dental Answer Date Recorded Dental: Regular Dentist Unknown 01/28/20 21 Housing Stability Answer Date Recorded What is your living situation today? I have a [facility] place to live 01/03/2024 Comments Unknown Sex and Gender Information Value Date Recorded Sex Assigned at Not on file Legal Sex Female 3:52 PM TOOL REPAIR TECHNICIAN Gender Identity Not on file Sexual Orientation Not on file documented as of this encounter Last Filed Vital Signs Vital Sign Reading Time Taken Comments Blood Pressure 126/86 01/02/2024 6:22 AM TOOL REPAIR TECHNICIAN Pulse 108 01/02/2024 6:22 AM TOOL REPAIR TECHNICIAN Temperature - - Respiratory Rate 18 01/02/2024 6:22 AM TOOL REPAIR TECHNICIAN Oxygen Saturation 98% 01/02/2024 6:22 AM TOOL REPAIR TECHNICIAN Inhaled Oxygen Concentration - - Weight - - Height - - Body Mass Index - - documented in this encounter Plan of Treatment Not on file documented as of this encounter Visit Diagnoses Not on filedocumented in this encounter Additional Health Concerns Assessment Noted Time PHQ-9 Depression Total Score: 9 01/02/20 24 6:48 PM TOOL REPAIR TECHNICIAN documented as of this encounter Care Teams Cut [employer] Relationship Specialty Start Date End Date None Reported, Pcp PCP - General Family Medicine 09/30/22 documented as of this encounter
--- OUTSIDE RECORDS SUMMARY | 2024-09-18 09:04 | XMS_ITS | Referral Summary ---
Author Organization [facility] Address [address] [place] [address] Care Team Providers Care Precision Aircraft Structure Assembler Name Role Phone None Reported, Pcp Primary Care Provider Unavail able Source Comments Patient records contain information from all sites at [facility]. For routine questions regarding patient records, call [phone] during business hours, M-F 8:00 AM - 5:00 PM Central Time. Record requests for emergency care only can be directed to [phone] at any time.[facility] Allergies Active Allergy Reactions Criticality Noted Date Comments Sulfa (Sulfonamide Antibiotics) Shortness of breath (Reselect Reaction) 03/20/2018 Medications * This document contains information received from the source organization and may not represent a complete record from that organization. cariprazine (VRAYLAR) 4.5 mg capsule Take 4.5 mg by mouth daily. Active doxazosin (CARDURA) 1 mg tablet Take 0.5 mg by mouth 2 (two) times a day. Active levothyroxine (SYNTHROID, LEVOTHROID) 50 mcg tablet Take 50 mcg by mouth every morning before breakfast. Active lisdexamfetamin e (VYVANSE) 10 mg capsule Take 1 capsule [...] drink = 0.6 oz pu re alcohol) [facility] Utilities Answer Date Recorded In the past 12 months has e [employer], gas, oil, or water company threatened to [...] your living situation today? I have a [facility] place to live 01/03/2024 Comments No Sex and Gender Information Value Date Recorded Sex Assigned at Not on file Legal Sex Female 3:52 PM ASSOCIATE BUSINESS ANALYST Gender Identity Not on file Sexual Orientation Not on file Last Filed Vital Signs Vital Sign Reading Time Taken Comments Blood Pressure 120/73 01/06/2024 7:16 AM ASSOCIATE BUSINESS ANALYST Pulse 87 01/06/2024 7:16 AM ASSOCIATE BUSINESS ANALYST Temperature 36.4 ??C (97.5 ??F) 01/06/2024 7:16 AM CS T Respiratory Rate 17 01/06/2024 7:16 AM ASSOCIATE BUSINESS ANALYST Oxygen Saturation 98% 01/06/2024 7:16 AM ASSOCIATE BUSINESS ANALYST Inhaled Oxygen Concentration - - Weight 72.6 kg (159 lb 15.8 oz) 01/02/2024 3:57 PM ASSOCIATE BUSINESS ANALYST Height 170 cm (5' 6.93) 01/02/2024 3:57 PM ASSOCIATE BUSINESS ANALYST Body Mass Index 25.11 01/02/2024 3:57 PM ASSOCIATE BUSINESS ANALYST Plan of Treatment Not on file Procedures Procedure Name Priority Date/Time Associated Diagnosis Comments COMPREHENSIVE METABOLIC PANEL, S/P Routine 01/02/2024 5:44 PM ASSOCIATE BUSINESS ANALYST THYROID-STIMULATING HORMONE-SENSITIVE (S-TSH) Routine 01/02/2024 5:44 PM ASSOCIATE BUSINESS ANALYST from Last 3 Months or Most Recently Relevant to Health Maintenance Results * (ABNORMAL) S-TSH (Thyroid-Stimulating Hormone - Sensitive) (01/02/2024 5:44 PM ASSOCIATE BUSINESS ANALYST) TSH, Sensitive 5.0(H) 0.3 - 4.2 mIU/L 01/02/2024 6:36 PM ASSOCIATE BUSINESS ANALYST [facility] Blood (Blood, Venous) 01/02/2024 5:44 PM ASSOCIATE BUSINESS ANALYST 01/02/2024 5:50 PM ASSOCIATE BUSINESS ANALYST us Janiya Espinoza M.D. LAB BLOOD ADD-ON Final Resul t [facility] [address] [place] [address], [facility] MKTO [facility] [place] [id number] [place] [address] * (ABNORMAL) Comprehensive Metabolic Panel (01/02/2024 5:44 PM ASSOCIATE BUSINESS ANALYST) Potassium, P 3.4(L) 3.6 - 5.2 mmol/L 01/02/2024 6:36 PM ASSOCIATE BUSINESS ANALYST [facility] Sodium, P 135 135 - 145 mmol/L 01/02/2024 6:36 PM ASSOCIATE BUSINESS ANALYST [facility] Chloride, P 100 98 - 107 mmol/L 01/02/2024 6:36 PM ASSOCIATE BUSINESS ANALYST [facility] Bicarbonate, P 25 22 - 29 mmol/L 01/02/2024 6:36 PM ASSOCIATE BUSINESS ANALYST [facility] Anion Gap, P 10 7 - 15 01/02/2024 6:36 PM ASSOCIATE BUSINESS ANALYST [facility] BUN (Blood Urea Nitrogen), P 14 6 - 21 mg/dL 01/02/2024 6:36 PM ASSOCIATE BUSINESS ANALYST [facility] Creatinine 0.72 0.59 - 1.04 mg/dL 01/02/2024 6:36 PM ASSOCIATE BUSINESS ANALYST [facility] Estimated GFR (eGFR) >90 >=60 mL/min/BS A 01/02/2024 6:36 PM ASSOCIATE BUSINESS ANALYST [facility] Comment: Estimated GFR calculated using the 2020 CKD_EPI creatinine equation. Calcium, Total, P 9.4 8.6 - 10.0 mg/dL 01/02/2024 6:36 PM ASSOCIATE BUSINESS ANALYST [facility] Glucose, P 120 70 - 140 mg/dL 01/02/2024 6:36 PM ASSOCIATE BUSINESS ANALYST [facility] Protein, Total, P 7.6 6.3 - 7.9 g/dL 01/02/2024 6:36 PM ASSOCIATE BUSINESS ANALYST [facility] Albumin, P 4.6 3.5 - 5.0 g/dL 01/02/2024 6:36 PM ASSOCIATE BUSINESS ANALYST [facility] Aspartate Aminotransferase (AST), P 23 8 - 43 U/L 01/02/2024 6:36 PM ASSOCIATE BUSINESS ANALYST [facility] Alkaline Phosphatase, P 75 35 - 104 U/L 01/02/2024 6:36 PM ASSOCIATE BUSINESS ANALYST [facility] Alanine Aminotransferase (ALT), P 23 7 - 45 U/L 01/02/2024 6:36 PM ASSOCIATE BUSINESS ANALYST [facility] Bilirubin, Total, P 0.6 0.0 - 1.2 mg/dL 01/02/2024 6:36 PM ASSOCIATE BUSINESS ANALYST [facility] Blood (Blood, Venous) 01/02/2024 5:44 PM ASSOCIATE BUSINESS ANALYST 01/02/2024 5:50 PM ASSOCIATE BUSINESS ANALYST us Janiya Espinoza M.D. LAB BLOOD ADD-ON Final Resul t [facility] [address] [place] [address], [place] MKTO [facility] [place] [address] [place] [address] from Last 3 Months or Most Recently Relevant to Health Maintenance Insurance [facility] [place] [address] Advance Directives For more information, please contact: [phone] * Full Code (Latest Code Status on File) Date Activated Date Inactivated Comments 01/02/2024 4:27 PM 01/06/2024 5:29 PM Question Answer Comments Full Code: Not Discussed Due to: Patient not available * Full Code Date Activated Date Inactivated Comments 10/01/2022 1:33 PM 10/06/2022 3:53 PM Question Answer Comments Full Code: Not Discussed Due to: Not medically appropriate Care Teams Precision Aircraft Structure Assembler Relationship Specialty Start Date End Date None Reported, Pcp PCP - General Family Medicine 09/30/22
--- OUTSIDE RECORDS SUMMARY | 2024-09-18 09:04 | XMS_ITS | Clinical Summary ---
Author Organization [facility] Address [address] [place] [address] Care Team Providers Care Lpn Home Health Name Role Phone None Reported, Pcp Primary Care Provider Unavail able Source Comments Patient records contain information from all sites at [facility]. For routine questions regarding patient records, call [phone] during business hours, M-F 8:00 AM - 5:00 PM Central Time. Record requests for emergency care only can be directed to [phone] at any time.[facility] Allergies Active Allergy Reactions Criticality [...] drink = 0.6 oz pu re alcohol) [facility] Utilities Answer Date Recorded In the past 12 months has e [employer], gas, oil, or water company threatened to [...] your living situation today? I have a [facility] place to live 01/03/2024 Comments No Sex and Gender Information Value Date Recorded Sex Assigned at Not on file Legal Sex Female 3:52 PM LEISURE STUDIES PROFESSOR Gender Identity Not on file Sexual Orientation Not on file Last Filed Vital Signs Vital Sign Reading Time Taken Comments Blood Pressure 120/73 01/06/2024 7:16 AM LEISURE STUDIES PROFESSOR Pulse 87 01/06/2024 7:16 AM LEISURE STUDIES PROFESSOR Temperature 36.4 ??C (97.5 ??F) 01/06/2024 7:16 AM CS T Respiratory Rate 17 01/06/2024 7:16 AM LEISURE STUDIES PROFESSOR Oxygen Saturation 98% 01/06/2024 7:16 AM LEISURE STUDIES PROFESSOR Inhaled Oxygen Concentration - - Weight 72.6 kg (159 lb 15.8 oz) 01/02/2024 3:57 PM LEISURE STUDIES PROFESSOR Height 170 cm (5' 6.93) 01/02/2024 3:57 PM LEISURE STUDIES PROFESSOR Body Mass Index 25.11 01/02/2024 3:57 PM LEISURE STUDIES PROFESSOR Plan of Treatment Health Maintenance Due Date Last Done Comments HIV Screening 1996 Hepatitis C Screening 1996 Tobacco Cessation counseling 1996 Hepatitis B Vaccines (1 of 3 - 19+ 3-dose series) 2015 DTaP,Tdap,and Td Vaccines (7 - Td or Tdap) 07/11/2018 07/11/2008, 02/08/2002, 03/03/1998, Additional history exists Depression Screening (Annual PHQ-2) 11/21/2023 COVID-19 Vaccine ( season) 2024 Influenza Vaccine (#1) 2024 Glucose Test for Med Monitoring 01/02/2025 01/02/2024, [...] METABOLIC PANEL, S/P Routine 01/02/2024 5:44 PM LEISURE STUDIES PROFESSOR THYROID-STIMULATING HORMONE-SENSITIVE (S-TSH) Routine 01/02/2024 5:44 PM LEISURE STUDIES PROFESSOR from Last 3 Months or Most Recently Relevant to Health Maintenance Results * (ABNORMAL) S-TSH (Thyroid-Stimulating Hormone - Sensitive) (01/02/2024 5:44 PM LEISURE STUDIES PROFESSOR) TSH, Sensitive 5.0(H) 0.3 - 4.2 mIU/L 01/02/2024 6:36 PM LEISURE STUDIES PROFESSOR MKTO Blood (Blood, Venous) 01/02/2024 5:44 PM LEISURE STUDIES PROFESSOR 01/02/2024 5:50 PM LEISURE STUDIES PROFESSOR us Janiya Espinoza M.D. LAB BLOOD ADD-ON Final Resul t [facility] [address] [place] [address], [facility] MKTO [facility] [place] [address] [place] [address] * (ABNORMAL) Comprehensive Metabolic Panel (01/02/2024 5:44 PM LEISURE STUDIES PROFESSOR) Potassium, P 3.4(L) 3.6 - 5.2 mmol/L 01/02/2024 6:36 PM LEISURE STUDIES PROFESSOR MKTO Sodium, P 135 135 - 145 mmol/L 01/02/2024 6:36 PM LEISURE STUDIES PROFESSOR MKTO Chloride, P 100 98 - 107 mmol/L 01/02/2024 6:36 PM LEISURE STUDIES PROFESSOR MKTO Bicarbonate, P 25 22 - 29 mmol/L 01/02/2024 6:36 PM LEISURE STUDIES PROFESSOR MKTO Anion Gap, P 10 7 - 15 01/02/2024 6:36 PM LEISURE STUDIES PROFESSOR [facility] BUN (Blood Urea Nitrogen), P 14 6 - 21 mg/dL 01/02/2024 6:36 PM LEISURE STUDIES PROFESSOR MKTO Creatinine 0.72 0.59 - 1.04 mg/dL 01/02/2024 6:36 PM LEISURE STUDIES PROFESSOR MKTO Estimated GFR (eGFR) >90 >=60 mL/min/BS A 01/02/2024 6:36 PM LEISURE STUDIES PROFESSOR MK[facility] Comment: Estimated GFR calculated using the 2020 CKD_EPI creatinine equation. Calcium, Total, P 9.4 8.6 - 10.0 mg/dL 01/02/2024 6:36 PM LEISURE STUDIES PROFESSOR MKTO Glucose, P 120 70 - 140 mg/dL 01/02/2024 6:36 PM LEISURE STUDIES PROFESSOR MKTO Protein, Total, P 7.6 6.3 - 7.9 g/dL 01/02/2024 6:36 PM LEISURE STUDIES PROFESSOR MK[facility] Albumin, P 4.6 3.5 - 5.0 g/dL 01/02/2024 6:36 PM LEISURE STUDIES PROFESSOR MKTO Aspartate Aminotransferase (AST), P 23 8 - 43 U/L 01/02/2024 6:36 PM LEISURE STUDIES PROFESSOR MKTO Alkaline Phosphatase, P 75 35 - 104 U/L 01/02/2024 6:36 PM LEISURE STUDIES PROFESSOR MKTO Alanine Aminotransferase (ALT), P 23 7 - 45 U/L 01/02/2024 6:36 PM LEISURE STUDIES PROFESSOR MKTO Bilirubin, Total, P 0.6 0.0 - 1.2 mg/dL 01/02/2024 6:36 PM LEISURE STUDIES PROFESSOR MKTO Blood (Blood, Venous) 01/02/2024 5:44 PM LEISURE STUDIES PROFESSOR 01/02/2024 5:50 PM LEISURE STUDIES PROFESSOR Janiya Espinoza M.D. LAB BLOOD ADD-ON Final Resul t [facility] [address] [place] [address], [facility] MKTO [facility] [address] from Last 3 Months or Most Recently Relevant to Health Maintenance Insurance [facility] Advance Directives For more information, please contact: [phone] * Full Code (Latest Code Status on File) Date Activated Date Inactivated Comments 01/02/2024 4:27 PM 01/06/2024 5:29 PM Question Answer Comments Full Code: Not Discussed Due to: Patient not available * Full Code Date Activated Date Inactivated Comments 10/01/2022 1:33 PM 10/06/2022 3:53 PM Question Answer Comments Full Code: Not Discussed Due to: Not medically appropriate Care Teams Lpn Home Health Relationship Specialty Start Date End Date None Reported, Pcp PCP - General Family Medicine 09/30/22
== END 2024-09-18 08:58 | disposition home or self-care (01) ==
PROVIDERS: PCP Family Medicine; Visit Provider Obstetrics & Gynecology
DX: E03.9 Hypothyroidism, unspecified (principal); R53.83 Other fatigue; E66.3 Overweight
CPT/HCPCS: 84439; 84443; 84481; 86376; 86800

== ENCOUNTER 2024-11-05 10:41 | Outpatient (CLI) | payer MEDICARE, OTHER, SELFPAY | END 2024-11-05 10:42 | disposition home or self-care (01) | LOC: NFLDREF 11-06 02:57 | PROVIDERS: PCP Family Medicine; Referring Provider Family Medicine; Visit Provider Obstetrics & Gynecology | DX: E03.9 Hypothyroidism, unspecified (principal) | CPT/HCPCS: 84439; 84443 ==

== ENCOUNTER 2024-12-07 09:21 | Outpatient (CLI) | payer MEDICARE, SELFPAY | END 2024-12-07 09:22 | disposition home or self-care (01) | LOC: NFLDREF 12-09 16:13 | PROVIDERS: PCP Family Medicine; Referring Provider Family Medicine; Visit Provider Obstetrics & Gynecology | DX: E03.9 Hypothyroidism, unspecified (principal) | CPT/HCPCS: 84439; 84443 ==

== ENCOUNTER 2025-03-04 09:19 | Outpatient (CLI) | payer MEDICARE, MEDICAID, SELFPAY ==
--- NOTE | 2025-03-04 09:15 | CRLHL7_ITS ---
For Patients: As a result of the Cures Act, medical imaging exams and procedure reports are released immediately into your electronic medical record. You may view this report before your referring provider. If you have questions, please contact your health care provider. LMP: 12/23/2024. KIAH by LMP: 09/29/2025. GA: 10w, 1d. Single. INDICATION: Dating and viability. FINDINGS: CRL: 2.3 cm, 9w, 0d. KIAH 10/07/2025. FHR: 176 bpm. GESTATIONAL SAC: 3.9 cm, appears within normal limits. YOLK SAC: 3.9 mm, appears within normal limits. RIGHT OVARY: 3.7 x 1.7 x 2.4 cm, within normal limits. LEFT OVARY: 4.7 x 2.2 x 4.4 cm, within normal limits, CL. IMPRESSION: Single living intrauterine with sonographic gestational age 9 weeks 0 days and sonographic due date 10/07/2025. Lloyd Justice M.D. Diagnostic Radiologist [employer] [email or web address] [email or web address] / bM/Dictated by: Lloyd Justice MD @ 03/04/2025 5:08:00 PM (Electronically Signed)
== END 2025-03-04 09:20 | disposition home or self-care (01) ==
LOC: US 09:19
PROVIDERS: PCP Family Medicine; Visit Provider Midwife
DX: Z34.01 Encounter for supervision of normal first pregnancy, first trimester (principal); Z3A.09 9 weeks gestation of pregnancy; Z67.40 Type O blood, Rh positive
CPT/HCPCS: 76801

== ENCOUNTER 2025-03-04 10:20 | Outpatient (CLI) | payer MEDICARE, MEDICAID, SELFPAY | END 2025-03-04 10:21 | disposition home or self-care (01) | PROVIDERS: PCP Family Medicine; Visit Provider Midwife | DX: Z34.01 Encounter for supervision of normal first pregnancy, first trimester (principal); Z67.40 Type O blood, Rh positive | CPT/HCPCS: 83020; 83021; 84443; 85660; 86592; 86703; 86704; 86706; 86762; 86787; 86803; 86850; 86900; 86901; 87086; 87340; 87491; 87591 ==

== ENCOUNTER 2025-05-22 14:41 | Outpatient (CLI) | payer MEDICARE, MEDICAID, SELFPAY | END 2025-05-22 14:42 | disposition home or self-care (01) | LOC: NFLDREF 05-26 06:11 | PROVIDERS: PCP Family Medicine; Referring Provider Family Medicine; Visit Provider Advanced Practice Midwife | DX: E03.9 Hypothyroidism, unspecified (principal) | CPT/HCPCS: 76811; 84443 ==

== ENCOUNTER 2025-05-22 14:43 | Outpatient (CLI) | payer MEDICARE, MEDICAID, SELFPAY | END 2025-05-22 14:44 | disposition home or self-care (01) | LOC: US 14:44 | PROVIDERS: PCP Family Medicine; Visit Provider Midwife | DX: O99.342 Other mental disorders complicating pregnancy, second trimester (principal); F43.10 Post-traumatic stress disorder, unspecified; F60.3 Borderline personality disorder; F32.A Depression, unspecified; Z3A.20 20 weeks gestation of pregnancy; E03.9 Hypothyroidism, unspecified | CPT/HCPCS: 76811 ==

== ENCOUNTER 2025-06-08 14:47 | Outpatient (CLI) | payer MEDICARE, MEDICAID, SELFPAY ==
[2025-06-08 15:01] VITALS: PULSE 80; RESP 21; TEMP 36.8; O2SAT 98
[2025-06-08 15:03] VITALS: BP 119/71; PULSE 79
[2025-06-08 15:42] LABS: Appearance Urine Clear (Clear)
== END 2025-06-08 16:15 | disposition home or self-care (01) ==
LOC: OB OUT 14:49 → OB 14:51
PROVIDERS: PCP Family Medicine; Visit Provider Advanced Practice Midwife
DX: O26.892 Other specified pregnancy related conditions, second trimester (principal); R10.9 Unspecified abdominal pain; M54.9 Dorsalgia, unspecified; Z3A.22 22 weeks gestation of pregnancy
CPT/HCPCS: 81001; 81003; 87086; G0463

== ENCOUNTER 2025-06-25 01:16 | Emergency (ER) | payer MEDICARE, MEDICAID, SELFPAY ==
--- OUTSIDE RECORDS SUMMARY | 2025-06-25 01:19 | XMS_ITS | Clinical Summary ---
Author Organization [facility] Address [address] [place] [address] Care Team Providers Care Director Agricultural Services Name Role Phone No Ref-Primary, Physician Primary Care Provider Yaneth Vaz [facility] Unavailable Allergies Active Allergy Reactions Criticality Noted Date Comments Sulfa Antibiotics 01/09/2023 Medications sertraline (ZOLOFT) 50 MG tablet Take 50 mg by mouth daily. 5 Active lisdexamfetamine (VYVANSE) 20 MG capsule Take 20 mg by mouth 2 times daily. 4 Active haloperidol (HALDOL) 0.5 MG tablet Take 1 mg by mouth at bedtime. 5 Active levothyroxine (SYNTHROID/LEVOTH ROID) 125 MCG tablet Take 1 tablet by mouth daily at 2 pm. 5 Active LORazepam (ATIVAN) 1 MG tablet Take 1 mg by mouth as needed for anxiety. Up to 10 tablets per month 5 Active OLANZapine (ZYPREXA) 2.5 MG tablet Take 5 mg by mouth as needed. 4 Active azelaic acid (FINACIA) 15 % external gel Apply topically 2 times daily. 5 Active Vit-Fe Fumarate-FA ( MULTIVITAMIN PLUS IRON) 27-1 MG TABS Take by mouth daily. Active nicotine (NICORETTE) [address] 2-4 mg inside cheek every hour as needed for nicotine withdrawal symptoms. Active Encounters Date Type Department Care Team Description 04/02/2025 9:30 AM CDT Office Visit [facility] [address] [place] [address] Consuelo Jarrett MD Depression affecting in first trimester, antepartum 04/02/2025 Travel 03/28/2025 8:30 AM CDT Virtual Visit [facility] [address] [place] [id number] Sahara Sanchez MD Reichel, Adele Caroline, [facility] , first, first trimester (Primary Dx) 03/28/2025 PRE VISIT [facility] [address] [place] [address] Amarilis Cervantes RN Consult ([facility] consult- med review) from Last 3 Months Social History Tobacco Use Types Packs/Day Years Used Date Smoking Tobacco: Never Assessed Adolescent Education Answer Date Record ed Getting School Help Needed Not on file 08/13 Estimated Date of Delivery Comme nts Yes 10/07/2025 Based on Ultraso und Sex and Gender Information Value Date Recorded Sex Assigned at Not on file Legal Sex Female 5:58 PM PETROLEUM INSPECTOR SUPERVISOR Gender Identity Not on file Sexual Orientation Not on file Last Filed Vital Signs Vital Sign Reading Time Taken Comments Blood Pressure 125/78 04/02/2025 9:47 AM CDT Pulse 91 04/02/2025 9:47 AM CDT Temperature 36.7 C (98.1 F) 01/10/2023 9:07 AM PETROLEUM INSPECTOR SUPERVISOR Respiratory Rate 16 04/02/2025 9:47 AM CDT Oxygen Saturation 98% 04/02/2025 9:47 AM CDT Inhaled Oxygen Concentration - - Weight 70.9 kg (156 lb 3.2 oz) 01/09/2023 10:10 PM PETROLEUM INSPECTOR SUPERVISOR Height 160 cm (5' 3) 01/09/2023 10:10 PM PETROLEUM INSPECTOR SUPERVISOR Body Mass Index 27.67 01/09/2023 10:10 PM PETROLEUM INSPECTOR SUPERVISOR Plan of Treatment Health Maintenance Due Date Last Done Comments ADVANCE CARE PLANNING 1996 ANNUAL REVIEW OF HM ORDERS 1996 DEPRESSION ACTION PLAN 1996 PHQ-9 1996 TSH W/FREE T4 REFLEX 1996 MEDICARE ANNUAL WELLNESS VISIT 2014 DTAP/TDAP/TD VACCINE (7 - Td or Tdap) 07/11/2018 07/11/2008, 02/08/2002, 03/03/1998, Additional history exists COVID-19 VACCINE (1 - 2023- season) 2024 MATERNAL SCREENING DISCUSSION 03/11/2025 PAP 06/01/2025 06/01/2022 OBGCT (OB) 06/17/2025 TDAP VACCINE () 07/08/2025 INFLUENZA VACCINE (#1) 2025 RSV VACCINE (1 - Risk 1-dose series) 08/12/2025 ZOSTER VACCINE (1 of 2) 2046 HEPATITIS B VACCINE Completed 01/07/1998, 05/03/1997, 02/08/1997 MENINGITIS VACCINE Aged Out 07/11/2008 No longer eligible based on patient's age to complete this topic HEPATITIS C SCREENING Completed 02/12/2017 HIV SCREENING Completed 02/12/2017 HPV VACCINE (No Doses Required) Completed PNEUMOCOCCAL VACCINE: PEDIATRICS (0 to 5 YEARS) AND AT-RISK PATIENTS (6 to 49 YEARS) Aged Out No longer eligible based on patient's age to complete this topic Insurance MEDICARE [facility] MEDICARE [facility] * Guarantor: Marva Sosa Luis Antonio Account Type Relation to Patient Date of Phone Billing Address Medication Therapy Self 1995 [address] [place] [address] MEDICARE [facility] Care Teams Director Agricultural Services Relationship Specialty Start Date End Date No Ref-Primary, Physician PCP - General 01/09/23 Yaneth Vaz, [facility] [address] [place] [address] [phone] Pharmacist Pharmacist 03/28/25
--- OUTSIDE RECORDS SUMMARY | 2025-06-25 01:19 | XMS_ITS | Clinical Summary ---
Author Organization [employer] [facility] Address [address] [place] [id number] Care Team Providers Care Rn Case Management Name Role Phone Pcp, No Primary Care Provider Unavailabl e Allergies Active Allergy Reactions Criticality Noted Date Comments Lactose GI Upset,Other - Describe In Comment Field 07/10/2021 Acne breakout Sulfa (Sulfonamide Antibiotics) Dyspnea 05/23/2008 Medications Vyvanse 10 mg capsule Take 10 mg by mouth once daily. 2 Active OLANzapine (ZYPREXA) 2.5 mg tablet TAKE 1 TABLET BY MOUTH EVERY DAY NEEDED FOR AGITATION OR ANXIETY. 2 Active OLANzapine (ZYPREXA) 5 mg tablet TAKE 1 TABLET BY MOUTH EVERY DAY NEEDED FOR AGITATION OR ANXIETY 2 Active spironolactone (ALDACTONE) 25 mg tablet Take 25 mg by mouth once daily. 2 Active drospirenone-ethin yl estradioL (LETA) 3-0.03 mg tabletIndications: Encounter for counseling regarding contraception Take 1 Tablet by mouth once daily. 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 Gender Identity Not on file Sexual Orientation Not on file Obstetrics History Para Term AB IAB SAB Ectopic Multiple Livin g Live Births 0 0 0 0 0 0 0 0 0 0 Last Filed Vital Signs Vital Sign Reading Time Taken Comments Blood Pressure 102/64 10/11/2022 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 Pulse 79 10/11/2022 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 Temperature 36.7 C (98 F) 10/11/2022 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 Respiratory Rate 14 05/25/2022 3:48 PM CDT Oxygen Saturation 99% 10/11/2022 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 Inhaled Oxygen Concentration - - Weight 67.3 kg (148 lb 6.4 oz) 10/11/2022 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 Height 160.7 cm (5' 3.27) 10/11/2022 11:[address] Body Mass Index 26.07 10/11/2022 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 Plan of Treatment Health Maintenance Due Date Last Done Comments Tetanus booster 07/11/2018 07/11/2008 BMI (ht and wt on same day) for age 18+ 10/11/2023 10/11/2022, 07/10/2021, 02/12/2017, Additional history exists Depression screening for age 12+ 10/11/2023 10/11/2022, 03/26/2016 COVID-19 vaccine series ( - 2023- season) 2024 Pap test for age 21-65 06/01/2025 06/01/2022 Influenza Vaccine (#1) 2025 Hepatitis B series for 19+ Completed 01/07, 05/03/1997, 02/08/1997 HIV for age 15-65 Completed 02/12/2017 Hepatitis C screening for age 18-79 Completed 02/12/2017 Pneumococcal series for age 6-49 Aged Out No longer eligible based on patient's age to complete this topic Procedures Procedure Name Priority Date/Time Associated Diagnosis Comments CUT OFF MAN THIN PREP PAP SCREEN IMAGED Routine 06/01/2022 10:39 AM CDT ANTI HIV 1/2 Routine 02/12/2017 12:54 PM CDT Screening for STD (sexually transmitted disease) ANTI HCV Routine 02/12/2017 12:54 PM CDT Screening for STD (sexually transmitted disease) from Last 3 Months or Most Recently Relevant to Health Maintenance Results * CUT OFF MAN THIN PREP PAP SCREEN IMAGED (06/01/2022 10:39 AM CDT) Case Report Gynecologic Cytology Report Case: [id number] Authorizing Provider: Unknown, Doctor Collected: 06/01/2022 1039 Ordering Location: [facility] Received: 06/02/2022 1248 First Screen: Jasper Figueroa Specimen: CUT OFF MAN ThinPrep Vial Screening, Cervical 06/16/2022 11:15 AM CDT [facility] INTERPRETATION/ RESULT NEGATIVE FOR INTRAEPITHELIAL LESION OR MALIGNANCY (NIL) (none) 06/16/2022 11:15 AM CDT [facility] at 1115 CDT SPECIMEN ADEQUACY Satisfactory for evaluation Endocervical component present Scant cellularity 06/16/2022 11:15 AM CDT [facility] HPV REQUEST HPV if ASCUS 06/16/2022 11:15 AM CDT [facility] Date of LMP 03/20/2022 06/16/2022 11:15 AM CDT [facility] Last Pap Result First Pap/Unknown 11:15 AM CDT [facility] Abnormal Pap or [place] Bx in last 5 years No 06/16/2022 11:15 AM CDT [facility] Menstrual Status 06/16/2022 11:15 AM CDT [facility] Additional Information 06/16/2022 11:15 AM CDT [facility] Comment: Interpreted at [facility] - [address], [place] [address] Automated Review Successful 06/16/2022 11:15 AM CDT [facility] Comment:Specimen processed s uccessfully by automated nascar racer device, ThinPrep Imaging System, [employer] Note The pap test is a [...] and malignant lesions. 06/16/2022 11:15 AM CDT [facility] Other (Cervical) 06/01/2022 10:39 AM CDT 06/02/2022 12:48 PM CDT us Doctor Unknown PATHOLOGY/CYTOLOGY Final Result [facility] [address] [place] [address], * ANTI HCV (02/12/2017 12:54 PM CDT) HEPATITIS C ANTIBODY Non-Reacti ve Non-Reacti ve 02/15/2017 8:46 PM CDT [facility] Blood BLOOD SPECIMEN / Unknown Venipuncture / Unknown 02/12/2017 12:54 PM CDT 02/12/2017 12:[address] [facility] - 02/15/2017 8:46 PM CDT Antibodies to HCV not detected; does not exclude the possibility of exposure to HCV. Lucila Sanchez MD SEND OUTS Final Result [facility] [address] [place] [address], * ANTI HIV 1/2 (02/12/2017 12:54 PM CDT) Pathologist [facility] HIV-1/HIV-2 ANTIBODY Non-Reacti ve Non-Reacti ve 02/15/2017 8:44 PM CDT [facility] Blood BLOOD SPECIMEN / Unknown Venipuncture / Unknown 02/12/2017 12:54 PM CDT 02/12/2017 12:[address] [facility] - 02/15/2017 8:44 PM CDT HIV-1 p24 and HIV-1/HIV-2 Ab not detected Lucila Sanchez MD SEND OUTS Final Result [facility] [address] [place] [address], from Last 3 Months or Most Recently Relevant to Health Maintenance Insurance MEDICARE PART A HB ONLY MEDICARE PART B HB ONLY Member Subscriber Plan / Payer (Ef fective 2024-Present) Name:Marva Lerner Member ID:[id number] Relation to Subscriber:Self Name:Marva Lerner Subscriber ID:[id number] Payer ID:Not on file Group ID:Not on file Type:Not on file Address: ATTN: CLAIMS [id number] Care Teams Rn Case Management Relationship Specialty Start Date End Date Pcp, No . PCP - General 12/17/14
[2025-06-25 01:34] VITALS: BP 149/78; PULSE 95; RESP 16; TEMP 35.9; O2SAT 98; BMI 29.2
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
--- OUTSIDE RECORDS SUMMARY | 2025-06-25 02:13 | XMS_ITS | Clinical Summary ---
Author Organization [facility] Address [address] , [address] [place] [address] Phone Care Team Providers Care Resident Services Supervisor Name Role Phone [facility] Unavailable Unava ilable Conditions or Problems Problem Name Problem Code Onset Date Status Entry Date Provider Comment Standard Description Annotate Cognitive changes 885913746 (SNOMED CT) 12/09 Active 12/09 Mehrdad Ch MD Impaired cognition Visual hallucinations [id number] (SNOMED CT) 12/09 Active 12/09 Mehrdad Ch MD Visual hallucinations Medications Medication Instructions Start Date Stop Date Generic Name [facility] Provider VRAYLAR 1.5 MG CAPS 9 cariprazine [id number] Mehrdad Ch MD DROSPIRENONE-E THINYL ESTRADIOL 3-0.03 MG TABS TAKE 1 TABLET BY MOUTH EVERY DAY drospirenone-et hinyl estradiol [id number] Mehrdad Ch MD Medications Administered No information available. Allergies, Adverse Reactions, Alerts Allergy Name Reaction Description Start Date Severity Statu s Provider SULFA Severe Active Mehrdad Ch MD Results Date Name Value Unit Range Flag Description Internal Other: Observation data from Authorization.pdf HIECONSENT Y Consent To Release information to the Health Information Exchange ([employer]) Office Visit: Office Visit MEDS REVIEW Done Documenta tion of current medications (procedure) SMOK STATUS former smoker Tob acco smoking status Plan of Care Type Date Detail Pending order Follow up ANGELINA af ter testing Pending order Follow up ANGELINA af ter testing Pending order EEG Video Pending order EEG Video 24 henna r Pending order MRI-Brain Seizur e Protocol W/WO Pending order We will contact you with test results Procedures Code Procedure Name Date Entry Date CPT-45224 EEG Setup CPT-05518 Video EEG 12hrs 1min-26hrs () 8 CPT-42541 Video EEG 12hrs 1min-26hrs (Tech) ORDERS EEG Video 24 hour ORDERS EEG Video CPT-62645 EEG Setup CPT-05600 Video EEG 2-12hrs () 12/17 CPT-46765 Video EEG 2-12hrs (Tech) 202 12/22/26 CPT-M3075U ProHance Gadolinium- based MR Contrast - 15 ml vial CPT-G6672D ProHance Gadolinium- based MR Contrast - 15 ml vial CPT-11205 MRI Brain W/WO [id number] MRI-Brain Seizure Protocol W/WO 6 [facility]-[id number] Documentation of current medicatio ns ORDERS We will contact you with test results 202 12/22/18 Vital Signs Date Name Value Unit Description Weight Measured 145 [lb_av] weight E& M Weight Measured 145 [lb_av] weight E& M BMI (Body Mass Index) 25.37 kg/m2 Bod y Mass Index (Ratio) Height 63.5 [in_us] height E&M Weight Measured 65.91 kg weight in kilograms E&M Immunizations No information available. Advance Directives No information available.
[2025-06-25 02:20] LABS: Hematocrit 40.8 % (33.0-51.0); Hemoglobin* 13.8 gm/dL (12.0-16.0); Immature Granulocytes Pct Auto 1.7 %; Mean Corpuscular HGB Conc 34 gm/dL (32-36); Mean Corpuscular Hemoglobin 31 pg (26-34); Mean Corpuscular Volume 93 fL (80-100); RDW Coefficient of Variation % 12.4 % (11.5-15.5); Red Blood Count 4.41 m/uL (4.00-5.20); White Blood Count* 20.23 K/uL (4.50-11.00)
[2025-06-25 02:26] LABS: Immature Granulocytes Abs Auto 0.30 K/uL (0.00-0.30); Lymphocytes Absolute Auto 3.30 K/uL (0.90-2.90); Slide Review Reflex No
[2025-06-25] MEDS: ONDANSETRON 2 MG/ML inj 4 MG IVP (02:27)
[2025-06-25 02:32] LABS: Chloride* 106 mmol/L (96-114); Sodium* 135 mmol/L (135-149)
[2025-06-25 02:33] LABS: Potassium* 3.4 mmol/L (3.6-5.1)
[2025-06-25 02:36] LABS: Anion Gap 8 mEq/L (7-15); Blood Urea Nitrogen* 9 mg/dL (5-24); Calcium* 11.2 mg/dL (8.4-10.6); Carbon Dioxide* 21 mmol/L (20-32); Creatinine* 0.6 mg/dL (0.5-1.5); Est. Creatinine Clearance* 120.54; Estimated Glomerular Filt Rate 125 ml/min; Glucose* 129 mg/dL (60-115)
[2025-06-25 03:24] VITALS: BP 136/78; PULSE 62
[2025-06-25 03:51] VITALS: PULSE 63; RESP 16; TEMP 36.8
== END 2025-06-25 04:30 | disposition home or self-care (01) ==
PROVIDERS: Emergency Provider Family Medicine; PCP Family Medicine
DX: K59.00 Constipation, unspecified (principal); Z3A.25 25 weeks gestation of pregnancy
CPT/HCPCS: 36415; 59025; 80048; 81001; 85025; 96374; 99284; J2405; J7030

== ENCOUNTER 2025-07-15 10:18 | Outpatient (CLI) | payer MEDICARE, MEDICAID, SELFPAY ==
--- NOTE | 2025-07-15 10:15 | CRLHL7_ITS ---
For Patients: As a result of the Cures Act, medical imaging exams and procedure reports are released immediately into your electronic medical record. You may view this report before your referring provider. If you have questions, please contact your health care provider. OB ULTRASOUND KIAH by US: 10/07/2025. GA: 28 w, 0 d. Single. Comparison: 05/22/2025, 03/04/2025. INDICATION: Growth (Schizoaffective disorder). TECHNIQUE: Real time grayscale imaging of the fetus was performed. Transabdominal. CERVIX: Not visualized. POSITIONING: Vertex. AMNIOTIC FLUID: 5.5 cm. SDP (N: greater than 2 x 1 cm) PLACENTA: Technique: Transabdominal. PLACENTA POSITION: Anterior. DOPPLER: heart rate: 139 bpm. BIOMETRY: BPD: 7.3 cm. 29 w, 3 d, 82.4 percent. HC: 26.4 cm. 28 w, 5 d, 41.8 percent. AC: 24.1 cm. 28 w, 3 d, 53.7 percent. FL: 4.8 cm. 26 w, 1 d, 33 percent. FL/AC ratio: 20.1 percent. HC/AC ratio: 1.1. EFW: 1119 g. Weight: 2 lbs, 7 oz. age by this US: 28 w, 1 d. KIAH by this US: 10/06/2025. Percentile by KIAH: 27.6 percent. IMPRESSION: 1. Sonographic gestational age 28 weeks 1 day and sonographic due date 10/06/2025. Good correlation with dates. Normal interval growth. 2. Estimated weight 28th percentile. Abdominal circumference 54th percentile. Lloyd Justice M.D. Diagnostic Radiologist [email or web address] YURIY/sergio hill/Dictated by: Lloyd Justice MD @ 07/15/2025 12:59:00 PM (Electronically Signed)
== END 2025-07-15 10:19 | disposition home or self-care (01) ==
LOC: US 10:19
PROVIDERS: PCP Family Medicine; Visit Provider Advanced Practice Midwife
DX: O99.343 Other mental disorders complicating pregnancy, third trimester (principal); F25.9 Schizoaffective disorder, unspecified; Z3A.28 28 weeks gestation of pregnancy
CPT/HCPCS: 76816

== ENCOUNTER 2025-07-15 11:09 | Outpatient (CLI) | payer MEDICARE, MEDICAID, SELFPAY | END 2025-07-15 11:10 | disposition home or self-care (01) | LOC: NFLDREF 11:10 | PROVIDERS: PCP Family Medicine; Visit Provider Advanced Practice Midwife | DX: Z34.83 Encounter for supervision of other normal pregnancy, third trimester (principal); E03.9 Hypothyroidism, unspecified | CPT/HCPCS: 84443; 86592 ==

== ENCOUNTER 2025-08-12 13:03 | Outpatient (CLI) | payer OTHER, SELFPAY ==
--- NOTE | 2025-08-12 13:00 | CRLHL7_ITS ---
For Patients: As a result of the Century Cures Act, medical imaging exams and procedure reports are released immediately into your electronic medical record. You may view this report before your referring provider. If you have questions, please contact your health care provider. OB ULTRASOUND GROWTH, TRANSABDOMINAL Clinical History KIAH by US: 10/07/2025. GA: 32 w, 0 d. Single. Comparison: Ultrasound 07/15/2025, 05/22/2025, 02/20/2025. INDICATION: Growth, schizoaffective disorder. TECHNIQUE: Real time morales scale imaging of the fetus was performed. Transabdominal imaging performed. CERVIX: Not visualized. POSITIONING: Vertex. AMNIOTIC FLUID: - cm. PLACENTA: Technique: Transabdominal. PLACENTA POSITION: Anterior. DOPPLER: heart rate: 130 bpm. BIOMETRY: BPD: 8 cm. 32 w, 1 d, 47 percent. HC: 28.8 cm. 31 w, 5 d, 10 percent. AC: 29.1 cm. 33 w, 0 d, 78 percent. FL: 6 cm. 31 w, 1 d, 17 percent. FL/AC ratio: 20.62 percent. HC/AC ratio: .99. EFW: 1943 g. Weight: 4 lbs, 5 oz. age by this US: 32 w, 0 d. KIAH by this US: 10/07/2025. Percentile by KIAH: 48 percent. IMPRESSION: 1. Sonographic gestational age 32 weeks 0 days and sonographic due date 10/07/2025. Good correlation with dates. Normal interval growth. 2. Estimated weight 48th percentile. Abdominal circumference 78th percentile. Lloyd Justice M.D. Diagnostic Radiologist [email or web address] SP/Dictated by: Lloyd Justice MD @ 08/12/2025 3:58:00 PM (Electronically Signed)
== END 2025-08-12 13:04 | disposition home or self-care (01) ==
LOC: US 13:05
PROVIDERS: PCP Family Medicine; Visit Provider Advanced Practice Midwife
DX: O99.343 Other mental disorders complicating pregnancy, third trimester (principal); F60.3 Borderline personality disorder; F25.9 Schizoaffective disorder, unspecified; Z3A.32 32 weeks gestation of pregnancy; O09.893 Supervision of other high risk pregnancies, third trimester; E03.9 Hypothyroidism, unspecified; F41.9 Anxiety disorder, unspecified; F43.10 Post-traumatic stress disorder, unspecified; F33.0 Major depressive disorder, recurrent, mild
CPT/HCPCS: 76816

== ENCOUNTER 2025-08-12 14:10 | Outpatient (CLI) | payer OTHER, SELFPAY | END 2025-08-12 14:11 | disposition home or self-care (01) | LOC: NFLDREF 08-19 10:26 | PROVIDERS: PCP Family Medicine; Referring Provider Family Medicine; Visit Provider Advanced Practice Midwife | DX: E03.9 Hypothyroidism, unspecified (principal); O09.893 Supervision of other high risk pregnancies, third trimester; F41.9 Anxiety disorder, unspecified; F43.10 Post-traumatic stress disorder, unspecified; F33.0 Major depressive disorder, recurrent, mild; F60.3 Borderline personality disorder | CPT/HCPCS: 84443 ==

== ENCOUNTER 2025-09-09 08:15 | Outpatient (CLI) | payer MEDICARE, MEDICAID, SELFPAY ==
--- NOTE | 2025-09-09 08:15 | CRLHL7_ITS ---
For Patients: As a result of the Century Cures Act, medical imaging exams and procedure reports are released immediately into your electronic medical record. You may view this report before your referring provider. If you have questions, please contact your health care provider. OB ULTRASOUND FOLLOW-UP, TRANSABDOMINAL KIAH by US: 10/07/2025. GA: 36 w, 0 d. Single. Comparison: Ultrasound 08/12/2025, 07/15/2025. INDICATION: Growth (Schizoaffective disorder). TECHNIQUE: Real time morales scale imaging of the fetus was performed. Transabdominal imaging performed. CERVIX: Not visualized. POSITIONING: Vertex. AMNIOTIC FLUID: 4.7 cm SDP (N: greater than 2 x 1 cm) PLACENTA: Technique: Transabdominal. PLACENTA POSITION: Anterior. DOPPLER: heart rate: 133 bpm. BIOMETRY: BPD: 8.6 cm. 34 w, 4 d, 19 percent. HC: 30.8 cm. 34 w, 2 d, less than 3 percent. AC: 34.4 cm. 38 w, 2 d, greater than 97 percent. FL: 6.3 cm. 32 w, 4 d, less than 3 percent. FL/AC ratio: 18.3 percent. HC/AC ratio: 0.9. EFW: 2851 g. Weight: 6 lbs, 5 oz. age by this US: 35 w, 0 d. KIAH by this US: 10/14/2025. Percentile by KIAH: 54.1 percent. IMPRESSION: 1. Sonographic gestational age 35 weeks 0 days and sonographic due date 10/14/2025. Sonographic age is 1 week behind the clinical age. 2. Estimated weight 54th percentile. Abdominal circumference greater than 97th percentile. 3. Femur length and head circumference both less than 3rd percentile. Decreased FL/AC ratio and HC/AC ratio. Lloyd Justice M.D. Diagnostic Radiologist [email or web address] SP/Dictated by: Lloyd Justice MD @ 09/09/2025 5:54:00 PM (Electronically Signed)
== END 2025-09-09 08:16 | disposition home or self-care (01) ==
LOC: US 08:16
PROVIDERS: PCP Family Medicine; Visit Provider Advanced Practice Midwife
DX: O99.343 Other mental disorders complicating pregnancy, third trimester (principal); F25.9 Schizoaffective disorder, unspecified; Z3A.36 36 weeks gestation of pregnancy
CPT/HCPCS: 76816

== ENCOUNTER 2025-09-09 09:29 | Outpatient (CLI) | payer MEDICARE, MEDICAID, SELFPAY ==
[2025-09-10 11:44] LABS: Strep B DNA Probe Negative (Negative)
[2025-09-10 11:56] LABS: Strep B Susceptibility Needed? No
== END 2025-09-09 09:30 | disposition home or self-care (01) ==
LOC: NFLDREF 09:29
PROVIDERS: PCP Family Medicine; Visit Provider Advanced Practice Midwife
DX: Z34.93 Encounter for supervision of normal pregnancy, unspecified, third trimester (principal)
CPT/HCPCS: 87081; 87653

== ENCOUNTER 2025-09-18 22:40 | Inpatient (IN) | payer MEDICARE, MEDICAID, SELFPAY ==
[2025-09-18 21:48] VITALS: BP 131/87; PULSE 105
[2025-09-18 21:49] VITALS: PULSE 112; TEMP 37; O2SAT 97
[2025-09-18 22:03] LABS: Amnisure Rom* POSITIVE
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
[2025-09-18 23:00] VITALS: TEMP 36.9
[2025-09-18 23:52] LABS: Hematocrit* 39.3 % (33.0-51.0); Hemoglobin* 13.4 gm/dL (12.0-16.0); Immature Granulocytes Pct Auto 1.5 %; Mean Corpuscular HGB Conc 34 gm/dL (32-36); Mean Corpuscular Hemoglobin 31 pg (26-34); Mean Corpuscular Volume 91 fL (80-100); RDW Coefficient of Variation % 12.3 % (11.5-15.5); Red Blood Count* 4.31 m/uL (4.00-5.20); White Blood Count* 12.47 K/uL (4.50-11.00)
[2025-09-18 23:55] LABS: Immature Granulocytes Abs Auto 0.20 K/uL (0.00-0.30); Lymphocytes Absolute Auto 2.60 K/uL (0.90-2.90); Slide Review Reflex No
[2025-09-19] VITALS (82 sets, daily range): BP systolic 103–146; BP diastolic 57–95; PULSE 61–103; RESP 18–22; TEMP 36.4–36.8; O2SAT 92–100; BMI 32.1
[2025-09-19] MEDS: OXYTOCIN 30 unit/500 ML in NS 30 UNIT/500 ML BAG IVPB (00:56)
[2025-09-19] MEDS: LACTATED RINGERS 1000 ML 1,000 ML 125 ML IV ×5 (00:56→20:45)
--- NOTE | 2025-09-19 09:15 | PM.OBPNL ---
Subjective Date Seen: 09/19/25 Narrative: ?Marva is coping well with labor pain/contractions. ?Her and his mother are with her for support. ?She is using repositioning and relaxation for comfort and pain management.?Her family had some questions about epidurals this morning which were answered to the best of my ability. Marva is planning a waterbirth but has indicated she is open to an epidural if needed. Objective Exam: VSS, afebrile General Appearance:? Calm, cooperative. ?No acute distress. ? Psychiatric Exam: Alert and oriented, appropriate affect Abdomen: Gravid Ctx: ?Q 2-3 min apart. ? ? ? FHTs: ?Baseline: 120. ? ? Variability: moderate. ?Accels: +. ? ?Decels: ?-. SVE: deferred Membranes: ?SROM on 09/18/25 at 0600 clear Vital Signs: Last Vital Signs Temp 98.2 F 09/19/25 05:27 Pulse 96 09/19/25 07:32 Resp 20 09/19/25 05:27 BP 130/86 09/19/25 07:32 Pulse Ox 97 09/19/25 00:10 Contractions Pitocin Rate (mU/min): 11 Plan Plan: Assessment:?? at 37.3 weeks gestation?? GBS negative Patient is coping well with challenges of labor.?? Labor type: Augmented, Early labor? Category 1 FHR pattern.? complicated by: ?ADHD, schizoaffective disorder, nicotine user, hx of abuse, medication exposure, poorly controlled hypothyroid, hx substance use disorder-clean x 9yrs Labor complicated by: Augmentation for PROM Plan:?? Continue with IV Pitocin per protocol Continue with routine intrapartum cares as ordered.?? Patient encouraged to move and change positions to promote physiologic labor and .?? Nonpharmacologic comfort measures per patient preference. Candidate for analgesia of choice if desired. Patient planning waterbirth Anticipate progress to NVD. ?
--- NOTE | 2025-09-19 10:35 | PM.OBPNL ---
Subjective Date Seen: 09/19/25 Narrative: ?Marva is coping well with labor pain/contractions. ?Her family is with her for support. ?She is using relaxation and repositioning for comfort and pain management.?She had some vaginal bleeding with her last exam by the RN so I was requested to come evaluate this at the bedside. Bleeding is a small amount at this time, will plan to monitor for now. Marva had some questions about pain management going forward, we discussed options and she ultimately has decided on getting an epidural. Assured her that we support whatever decision she makes for managing her pain. Objective Exam: VSS, afebrile General Appearance:? Calm, cooperative. ?No acute distress. ? Psychiatric Exam: Alert and oriented, appropriate affect Abdomen: Gravid Ctx: ?Q 2-3 min apart. ? ? ?Strong FHTs: ?Baseline: 135. ? ? Variability: moderate. ?Accels: -. ? ?Decels: ?-. SVE: 5.5/90/-1 Membranes: ?SROM on 09/18 at 0600 Vital Signs: Last Vital Signs Temp 97.6 F 09/19/25 09:58 Pulse 83 09/19/25 09:58 Resp 18 09/19/25 09:58 BP 132/88 09/19/25 09:58 Pulse Ox 98 09/19/25 09:58 Contractions Pitocin Rate (mU/min): 11 Plan Plan: Assessment:?? at 37.3 weeks gestation?? GBS neg Patient is coping well with challenges of labor.?? Labor type: Augmented, Early labor? Category 2 FHR pattern.? complicated by: ?ADHD, schizoaffective disorder, nicotine user, hx of abuse, medication exposure, poorly controlled hypothyroid, hx substance use disorder-clean x 9yrs Labor complicated by: Augmentation for PROM Plan:?? Continue with routine intrapartum cares as ordered.?? Patient encouraged to move and change positions to promote physiologic labor and .?? Nonpharmacologic comfort measures per patient preference. Candidate for analgesia of choice if desired. Pt requesting epidural at this time, placement per anesthesia Anticipate progress to NVD. ?
[2025-09-19] MEDS: LIDOCAINE 2% (PF) 5 ML VIAL EPIDURAL (11:16)
[2025-09-19] MEDS: ROPIVACAINE 0.2% 100 ml 100 ML 12 MG EPIDURAL ×2 (11:16→20:18)
[2025-09-19] MEDS: PHENYLEPHRINE 100 MCG/ML SYRINGE IVP ×2 (11:21→11:34)
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
--- NOTE | 2025-09-19 12:25 | PM.OBPNL ---
Subjective Date Seen: 09/19/25 Narrative: ?Marva is coping well with labor pain/contractions. ?Her and mom are with her for support. ?She recently had an epidural placed for comfort and pain management.?I was called to the bedside for a decrease in the FHR to 100-105. On arrival to bedside FHR had moderate variability with accelerations, baseline was 100, Marva was in hands and knees position. Cervical exam was done and she was found to be 8 cm with intact forebag. Consulted the OB sandstone inspector repairer for review of the strip and any recommendations she may have. She recommended close monitoring and AROM of forebag to allow for FSE placement.. Marva was reluctant to have this done due to her concern of hurting the baby. Initially we agreed to monitor with the external ultrasound monitor rather than the Novii. She did agree to AROM of the forebag and if needed then placement of FSE. AROM was done which showed thin meconium. Not long after this, the FHR decreased to the 90's for approximately 2 minutes and I recommended we place the internal monitor. Marva agreed and this was placed without difficulty. Current FHR baseline is 115 with minimal variability. Marva resting on her left side. Objective Exam: VSS, afebrile General Appearance:? Calm, cooperative. ?No acute distress. ? Psychiatric Exam: Alert and oriented, appropriate affect Abdomen: Gravid Ctx: ?difficult to trace with external, every 1-[address] in [address]. Strong. FHTs: ?Baseline: 115. ? ? Variability: minimal. ?Accels: -. ? ?Decels: ?-. SVE: 8/100/-1 Membranes: ?SROM since 09/18/25 initially clear, now thin meconium seen. Vital Signs: Last Vital Signs Temp 97.6 F 09/19/25 09:58 Pulse 67 09/19/25 12:24 Resp 18 09/19/25 09:58 BP 113/60 09/19/25 12:24 Pulse Ox 100 09/19/25 11:23 Contractions Pitocin Rate (mU/min): 0 Plan Plan: Assessment:?? at 37.3 weeks gestation?? GBS negative Patient is coping well with challenges of labor.?? Labor type: Augmented, Active labor? Category 2 FHR pattern.? complicated by: ?ADHD, schizoaffective disorder, nicotine user, hx of abuse, medication exposure, poorly controlled hypothyroid, hx substance use disorder-clean x 9yrs Labor complicated by: Augmentation for PROM Plan:?? Continue to monitor at this time, hold Pitocin infusion, consider restarting if Category 1 strip. Continue with routine intrapartum cares as ordered.?? Patient encouraged to move and change positions to promote physiologic labor and .?? Epidural infusing per anesthesia Anticipate progress to NVD. ?
--- NOTE | 2025-09-19 16:15 | PM.OBPNL ---
Subjective Date Seen: 09/19/25 Narrative: ?Marva is coping well with labor pain/contractions. ?Remi is with her for support. Her mom and another family member are present in the room as well ?She is using her epidural for comfort and pain management.?She has been restarted on IV Pitocin per protocol and there is a Category 1 strip at this time. Cervical exam was /0 felt that head was better applied to the cervix. She was repositioned to thrones position and then had a large gush of meconium stained fluid. Reports feeling more pelvic pressure since that time. Objective Exam: VSS, afebrile General Appearance:? Calm, cooperative. ?No acute distress. ? Psychiatric Exam: Alert and oriented, appropriate affect Abdomen: Gravid Ctx: ?Q 3 min apart. ? ? ?Strong FHTs: ?Baseline: 120. ? ? Variability: moderate. ?Accels: +. ? ?Decels: ?-. SVE: /0 Membranes: ?SROM on 09/18/25 at 0600, meconium stained fluid now, was initially clear Vital Signs: Last Vital Signs Temp 97.6 F 09/19/25 15:09 Pulse 95 09/19/25 16:10 Resp 18 09/19/25 09:58 BP 133/64 09/19/25 16:10 Pulse Ox 100 09/19/25 11:23 Contractions Pitocin Rate (mU/min): 0 Plan Plan: Assessment:?? at 37.3 weeks gestation?? GBS neg Patient is coping well with challenges of labor.?? Labor type: Augmented, Active labor? Category 1 FHR pattern.? complicated by: ADHD, schizoaffective disorder, nicotine user, hx of abuse, medication exposure, poorly controlled hypothyroid, hx substance use disorder-clean x 9yrs Labor complicated by: Augmentation for PROM Plan:?? Continue with IV Pitocin titration per protocol Continue with routine intrapartum cares as ordered.?? Patient encouraged to move and change positions to promote physiologic labor and .?? Epidural infusing per anesthesia Anticipate progress to NVD. ?
--- NOTE | 2025-09-19 18:03 | P.OBPN_ITS ---
Subjective Date Seen: 09/19/25 Narrative: Marva is coping well with labor, her family is at the bedside. She has been changing positions with the help of nursing staff. Continues to contract irregularly off and on, has made change although it does not feel like the baby has descended in station. Discussed placement of an IUPC with patient and she is hesitant to ahve this done so will defer for now since she has progressed. Will plan to place IUPC if the next check does not show cervical change. RN to incre ase Pitocin again at this time. Objective Exam: VSS, afebrile General Appearance:? Calm, cooperative. ?No acute distress. ? Psychiatric Exam: Alert and oriented, appropriate affect Abdomen: Gravid Ctx: ?Q min apart. ? ?Moderate ? FHTs: ?Baseline: 120. ? ? Variability: moderate. ?Accels: +. ? ?Decels: ?-. SVE: /0 Membranes: SROM on 09/18/25 at 0600, initially clear now thin mec Vital Signs: Last Vital Signs Temp 97.6 F 09/19/25 15:09 Pulse 88 09/19/25 17:37 Resp 18 09/19/25 09:58 BP 117/71 09/19/25 17:37 Pulse Ox 100 09/19/25 11:23 Contractions Pitocin Rate (mU/min): 6 Plan Plan: Assessment:?? at 37.3 weeks gestation?? GBS neg Patient is coping well with challenges of labor.?? Labor type: Augmented, Active labor? Category 1 FHR pattern.? complicated by: ADHD, schizoaffective disorder, nicotine user, hx of abuse, medication exposure, poorly controlled hypothyroid, hx substance use disorder-clean x 9yrs Labor complicated by: Augmentation for PROM Plan:?? Continue to titrate IV Pitocin per protocol Consider IUPC placement if not making cervical change Continue with routine intrapartum cares as ordered.?? Patient encouraged to move and change positions to promote physiologic labor and .?? Epidural infusing per anesthesia Anticipate progress to NVD. ?
[2025-09-19] MEDS: LIDOCAINE 1 % PF 30 ML INJECTION (21:49)
--- NOTE | 2025-09-19 22:55 | W.PM.OBVAGDE ---
OB Procedure Vag Delivery Mother Details Mother Details: The patient is a 29 year-old, 2, Para 0, admitted on 09/18/25 at 37.2 weeks gestation. : 2 Para: 1 Weeks Gestation: 37.3 Admission Date: 09/18/25 Additional Details Amniotic Membrane Status: SROM Amniotic Membrane Rupture Date: 09/18/25 Amniotic Membrane Rupture Time: 06:00 Amniotic Membrane Fluid Description: Clear and Meconium Stained Analgesia/Anesthesia Type: Epidural Waterbirth: No Pitcoin: Yes Intrapartal Events: Labor Augmentation Delivery augmentation: pitocin Labor Onset: 06:00 Complete: 18:37 Pushin:45 Heart: heart tones during second stage were Category 2 with tachycardia up to the 180's during approximately the last 25 minutes of pushing. Delivery Details Delivery Date: 09/19/25 Delivery Time: 21:29 Route of delivery: Infant Gender: Female Viability: Alive; Heart Rate Present Position at Delivery: OA Delivery Details: 29?y.o?at 37.3 weeks.? Marva was admitted on 09/18/25 reporting leaking of fluid since 0600 that morning. She was augmented with IV Pitocin per protocol and progressed slowly. She had a forebag which was ruptured at ?1202 and thin meconium was noted. Peds was requested already to attend due to her multiple mental health medications she has been taking during her . She received an epidural for pain which was effective. ? She became complete at 1837.??She pushed in left tilt and hands and knees positions effectively.??? There was tachycardia noted during the last 25 minutes of pushing. Maternal efforts were effective and steady progress was seen. She needed coaching to stay focused during the last few contractions but managed well and pushed baby out with encouragement. ? Spontaneous vaginal delivery at 2128 of?a viable? female .??Delivered in vertex OA position.??Shoulders delivered easily.? Spontaneous cry noted.??Infant placed on maternal abdomen.??Cord?was clamped and cut after a 5+ minute delay.??Nose and mouth were bulb suctioned.??? Shoulder dystocia: no? Nuchal cord: no? Meconium stained?fluid: yes, thin meconium? Water : no? ? ? 7 at 1 minute and 8 at 5 minutes.? Weight is pending. ? Placenta delivered spontaneously and?complete?at 2139 with a?3 vessel?cord.?? Bleeding controlled with fundal massage and?pitocin?for AMTSL.? ? Lacerations:? Right labial, repaired with 3-0?vicryl.??Superior to urethra there was a small laceration, not bleeding, not repaired. Very shallow and small 1st degree tear to perineum was bleeding. This stopped after pressure to area and no repair was needed. ? Bleeding?post delivery?was: minimal . ?The fundus was firm to palpation.? Blood loss: 350?mL.? Blood loss measurement type: QBL? ? ? Sponge,?lap?and needles counts are correct.? Mother and infant were stable after delivery.? 1 Minute Interval Total Score: 7 5 Minute Interval Total Score: 8 Additional Details Shoulder Dystocia: No Placenta Delivery Time: 21:39 Placental Delivery Description: Spontaneous Delivery repair: Vicryl Procedure Done: Global Blood Loss: 350 Laceration: Labial Blood Loss Measurement Type: QBL Bakri Used: No Sponge/Need Count Correct: Yes Cord Vessel Description: 3 Vessels Event Summary Status: Mother and were stable after delivery. Disposition: floor
[2025-09-19] MEDS: BUSPIRONE 30 MG PO (23:37)
[2025-09-19] MEDS: LEVOTHYROXINE 137 MCG TABLET PO (23:38)
[2025-09-20] VITALS: RESP 18
[2025-09-20 03:22] VITALS: BP 115/78; PULSE 92; RESP 18; TEMP 36.8
[2025-09-20] MEDS: IBUPROFEN 600 MG TABLET PO ×3 (06:23→20:40)
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
[2025-09-20] MEDS: BUSPIRONE 30 MG PO (09:45)
[2025-09-20 09:59] VITALS: BP 117/72; PULSE 80; RESP 16; TEMP 36.6; O2SAT 98
[2025-09-20] MEDS: AMPHETAMINE PO ×2 (10:09→14:14)
[2025-09-20] MEDS: DEXTROAMPHETAMINE PO ×2 (10:09→14:14)
[2025-09-20] MEDS: DOCUSATE SODIUM 100 MG CAPSULE PO (10:09)
--- NOTE | 2025-09-20 10:52 | PM.ANPOST ---
Post Anesthesia Note Post Anesthesia Note Patient seen: Inpatient Respiratory Status: adequate Cardiovascular Status: adequate Mental Status: baseline Pain: adequate Temp: baseline Anesthetic awareness: N/A Complications: none Follow care: none
[2025-09-20 12:49] VITALS: BP 118/76; PULSE 79; RESP 16; TEMP 36.5; O2SAT 98
[2025-09-20 17:18] VITALS: BP 133/85; PULSE 85; RESP 16; TEMP 36.5; O2SAT 98
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
[2025-09-20] MEDS: LEVOTHYROXINE 100 MCG TABLET PO (20:40)
== END 2025-09-20 21:14 | disposition home or self-care (01) | DRG 807 ==
LOC: OB OUT 22:40 → OB 22:40
PROVIDERS: Admitting Provider Midwife; PCP Family Medicine; Visit Provider Midwife
DX: O77.0 Labor and delivery complicated by meconium in amniotic fluid (principal); Z37.0 Single live birth; O42.02 Full-term premature rupture of membranes, onset of labor within 24 hours of rupture; O76 Abnormality in fetal heart rate and rhythm complicating labor and delivery; O70.0 First degree perineal laceration during delivery; O99.344 Other mental disorders complicating childbirth; F25.9 Schizoaffective disorder, unspecified; F60.3 Borderline personality disorder; F32.A Depression, unspecified; F41.9 Anxiety disorder, unspecified; F43.10 Post-traumatic stress disorder, unspecified; F90.9 Attention-deficit hyperactivity disorder, unspecified type; Z91.51 Personal history of suicidal behavior; O99.334 Smoking (tobacco) complicating childbirth; F17.290 Nicotine dependence, other tobacco product, uncomplicated; O99.284 Endocrine, nutritional and metabolic diseases complicating childbirth; E03.9 Hypothyroidism, unspecified; Z3A.37 37 weeks gestation of pregnancy
CPT/HCPCS: 01967; 36415; 76815; 84112; 85025; 86592; 86850; 86900; 86901; A9270; J2003; J2270; J2795; J7120